=== PATIENT | male | born 1940 | race Caucasian/White ===

== ENCOUNTER 2024-05-17 16:08 | Outpatient (REF) | payer BC, SELFPAY ==
--- OUTSIDE RECORDS SUMMARY | 2024-05-17 16:14 | XMS_ITS | Continuity of Care Document ---
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 It does not include entries that were removed or entered in error. 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 andMay 2021 Entered By: TRENTON PAULINO Comment: Vascular risk factors [facility] Dementia Active Condition [facility] Esophagitis Active Condition [facility] HTN - Hypertension (SCT 50973795) Active Condition [facility] Hyperlipidemia (SCT 38407001) Active Condition [facility] Long-term current use of anticoagulant Active Condition [facility] Major depressive disorder Active Condition [facility] Multiple nodules of lung Active Condition Jun 25, 2021 Entered By: YAZ WALTERS Comment: chest ct 01/03/2021 stable [facility] Pharyngeal dysphagia Active Condition [facility] Pulmonary embolism Active Condition [facility] Sleep Apnea (SCT 65055139) Active Condition [facility] Under care of multiple providers Active Condition Jun 25, 2021 Entered By: YAZ WALTERS Comment: Dr Hadley PCP [facility] Minimal cognitive impairment Inactive Condition 09/18/2021 [facility] Diagnosis: ICD-10-CM Z79.01 custodial (current) use of anticoagulants Active Diagnosis [facility] ([facility]) Diagnosis: ICD-10-CM R63.4 Abnormal weight loss [facility] [place] [facility] Diagnosis: ICD-10-CM I26.93 Sing subsegmental throm pulm emblsm w/o acute cor pulmonale Active Diagnosis [facility] [place] [facility] Diagnosis: ICD-10-CM F03.B18 Unsp dementia, moderate, with other behavioral disturb [facility] [place] [facility] Diagnosis: ICD-10-CM Z71.9 Counseling, unspecified Active Diagnosis [facility] [place] [facility] Diagnosis: ICD-10-CM F32.1 Major depressive disorder, single episode, moderate Active Diagnosis [facility] [place] [facility] Diagnosis: ICD-10-CM F32.9 Major depressive disorder, single episode, unspecified Active [facility] Medications Combined list of outpatient medications from Department of Defense and Veterans Affairs facilities.Medications provided include 1) outpatient medications from the last 15 months, and 2) patient-reported medications. Medication Details Route Status Patient Instructions Prescription Expires Prescription Number Last Dispense Date Ordering Provider Order Date Order Qty Source APIXABAN 5MG TAB TAKE TWO TABLETS BY MOUTH EVERY 12 HOURS FOR 7 DAYS, THEN TAKE ONE TABLET EVERY 12 HOURS FOR 53 DAYS FOR PREVENTI ON OF BLOOD CLOTS ORAL ACTIVE 05/22/2024 [id number] YAZ WALTERS 2023 134 [facility] BENZONATATE 100MG CAP TAKE ONE CAPSULE BY MOUTH THREE TIMES DAILY NEEDED FOR COUGH ORAL 03/15/2024 [id number] 3 YAZ WALTERS 2022 90 [facility] BUPROPION HCL 100MG 12HR TAB,SA TAKE ONE TABLET BY MOUTH EVERY MORNING ORAL DISCONT INUED (EDIT) 05/17/2024 [id number] 3 Fina CRUZ E 2022 90 [facility] BUPROPION HCL 150MG 12HR TAB,SA TAKE ONE TABLET BY MOUTH EVERY MORNING MOOD ORAL ACTIVE 12/30/2024 [id number] 4 Fina CRUZ E 2023 90 [facility] BUPROPION HCL 150MG 12HR TAB,SA TAKE ONE TABLET BY MOUTH EVERY MORNING ORAL DISCONT INUED (EDIT) 07/05/2024 [id number] 4 Fina CRUZ E 2023 90 [facility] ENSURE PLUS LIQUID CHOCOLATE DRINK 1 CAN BY MOUTH ONCE DAILY FOR NUTRITIO NAL SUPPLEME NTATION ORAL ACTIVE 03/25/2025 [id number] 4 YAZ WALTERS 2023 48 [facility] GALANTAMINE HYDROBROMID E 16MG CAP,SA TAKE ONE CAPSULE BY MOUTH EVERY MORNING (TAKE IN THE MORNING, PREFERAB LY WITH FOOD)FOR ALZHEIME R'S DEMENTIA ORAL ACTIVE 12/30/2024 [id number] 4 Fina CRUZ E 2023 90 [facility] GALANTAMINE HYDROBROMID E 8MG CAP,SA TAKE ONE CAPSULE BY MOUTH EVERY MORNING (TAKE IN THE MORNING, PREFERAB LY WITH FOOD)FOR ALZHEIME R'S DEMENTIA ORAL DISCONT INUED (EDIT) 05/17/2024 [id number] 4 Fina CRUZ E 2022 90 [facility] LOSARTAN 50MG TAB TAKE ONE TABLET BY MOUTH ONCE DAILY ORAL ACTIVE YAZ WALTERS 2022 [facility] MIRTAZAPINE 15MG TAB TAKE ONE-HALF TABLET BY MOUTH AT BEDTIME FOR DEPRESSI ON/MOOD ORAL DISCONT INUED BY PROVIDE R 12/30/2024 [id number] 4 Fina CRUZ E 2023 45 [facility] [place] MIRTAZAPINE 15MG TAB TAKE ONE-HALF TABLET BY MOUTH AT BEDTIME FOR DEPRESSI ON/MOOD ORAL DISCONT INUED (EDIT) 07/05/2024 [id number] 4 Fina CRUZ E 2023 45 [facility] MIRTAZAPINE 15MG TAB TAKE ONE-HALF TABLET BY MOUTH AT BEDTIME FOR DEPRESSI ON/MOOD ORAL DISCONT INUED (EDIT) 05/17/2024 [id number] 3 Fina CRUZ E 2022 45 [facility] MIRTAZAPINE 15MG TAB TAKE ONE-HALF TABLET BY MOUTH AT BEDTIME ORAL DISCONT INUED (EDIT) 01/26/2024 [id number] 3 Fina CRUZ E 2022 45 [facility] OMEPRAZOLE 20MG CAP,EC TAKE ONE CAPSULE BY MOUTH EVERY MORNING 30 MINUTES BEFORE BREAKFAS T ORAL ACTIVE 03/23/2025 [id number] 4 YAZ WALTERS 2023 90 [facility] Immunizations Combined list of available immunizations from the Department of Defense and Veterans Affairs facilities. Immunization Series Date Given Administered By Site Reaction Lot Number CVX Code Drug Belt Operator Status Comments Source RSV, BIVALENT, PROTEIN SUBUNIT RSVPREF, DILUENT RECONSTITUTED , 0.5 ML, PF 2023 MARIAM BLAKE LEFT DELTO ID [id number] complet ed [facility] INFLUENZA, UNSPECIFIED FORMULATION 2022 88 complet ed [facility] [place] INFLUENZA VACCINE, QUADRIVALENT, ADJUVANTED 2021 205 complet ed [facility] [place] [facility] PNEUMOCOCCAL CONJUGATE PCV20, POLYSACCHARID E [id number] CONJUGATE, ADJUVANT, PF 2021 216 complet ed [facility] COVID-19 (PFIZER), MRNA, LNP-S, PF, 30 MCG/0.3 ML DOSE 3 2020 208 complet ed [facility] INFLUENZA, UNSPECIFIED FORMULATION 2020 88 complet ed [facility] COVID-19 (PFIZER), MRNA, LNP-S, PF, 30 MCG/0.3 ML DOSE 2 2020 208 complet ed [facility] COVID-19 (PFIZER), MRNA, LNP-S, PF, 30 MCG/0.3 ML DOSE 1 2020 208 complet ed [facility] Results Combined list of recent chemistry, hematology and other laboratory results from Department of Defense and Veterans Affairs, ranging from 15 months to all on record, depending upon the facility. Order Name Results Value Reference Range Date Interpretation Specimen Comments Source CREATININ E (eGFR 2020) CREATININE [MASS/VOLUM E] IN SERUM OR PLASMA 1.49 mg/dL 0.50 - 1.40 03/22 H Specimen Type: SERUM No comment entered. Ordering Provider: MELISSA WALTERS Report Released Date/Time: Mar 22, 2024 04:00 PM Reporting Lab: [facility] [address] [facility] [address] Performing Lab: [facility] [place] [facility] [address] [facility] [address] [facility] CREATININ E (eGFR 2020) GLOMERULAR FILTRATION RATE/1.73 SQ M.PREDICTED [VOLUME RATE/AREA] IN SERUM, PLASMA OR BLOOD BY CREATININE- BASED FORMULA (CKD-EPI 2020) 46 mL/min 60 03/22 L Specimen Type: SERUM No comment entered. Ordering Provider: MELISSA WALTERS Report Released Date/Time: Mar 22, 2024 04:00 PM Reporting Lab: [facility] [place] [facility] [address] [facility] [address] Performing Lab: [facility] [address] [facility] LIVER FUNCTION PROTEIN [MASS/VOLUM E] IN SERUM OR PLASMA 6.9 g/dL 6.0 - 8.3 03/22 Specimen Type: SERUM No comment entered. Ordering Provider: MELISSA WALTERS Report Released Date/Time: Mar 22, 2024 04:00 PM Reporting Lab: [facility] [place] [facility] [address] [facility] [address] Performing Lab: [facility] [place] [facility] [address] [facility] [address] [facility] [place] [facility] LIVER FUNCTION ALBUMIN [MASS/VOLUM E] IN SERUM OR PLASMA 4.0 g/dL 3.5 - 5.0 03/22 Specimen Type: SERUM No comment entered. Ordering Provider: MELISSA WALTERS Report Released Date/Time: Mar 22, 2024 04:00 PM Reporting Lab: [place] [facility] [place] [facility] [address] [facility] [address] Performing Lab: [place] [facility] [place] [facility] [address] [facility] [address] [place] [facility] [place] [facility] LIVER FUNCTION ALKALINE PHOSPHATASE [ENZYMATIC ACTIVITY/VO LUME] IN SERUM OR PLASMA 49 U/L 40 - 150 03/22 Specimen Type: SERUM No comment entered. Ordering Provider: MELISSA WALTERS Report Released Date/Time: Mar 22, 2024 04:00 PM Reporting Lab: [place] [facility] [place] [facility] [address] [facility] [address] Performing Lab: [facility] [place] [facility] [address] [facility] [address] [place] [facility] [place] [facility] LIVER FUNCTION ASPARTATE AMINOTRANSF ERASE [ENZYMATIC ACTIVITY/VO LUME] IN SERUM OR PLASMA 16 U/L 5 - 34 03/22 Specimen Type: SERUM No comment entered. Ordering Provider: MELISSA WALTERS Report Released Date/Time: Mar 22, 2024 04:00 PM Reporting Lab: [facility] [place] [facility] [address] [facility] [address] Performing Lab: [facility] [place] [facility] [address] [facility] [address] [place] [facility] [facility] [facility] LIVER FUNCTION ALANINE AMINOTRANSF ERASE [ENZYMATIC ACTIVITY/VO LUME] IN SERUM OR PLASMA 25 U/L 03/22 Specimen Type: SERUM No comment entered. Ordering Provider: MELISSA WALTERS Report Released Date/Time: Mar 22, 2024 04:00 PM Reporting Lab: [facility] [place] [facility] [address] [facility] [address] Performing Lab: [facility] [place] [facility] [address] [facility] [address] [facility] [place] [facility] LIVER FUNCTION BILIRUBIN.T OTAL [MASS/VOLUM E] IN SERUM OR PLASMA 0.8 mg/dL 0.2 - 1.2 03/22 Specimen Type: SERUM No comment entered. Ordering Provider: MELISSA WALTERS Report Released Date/Time: Mar 22, 2024 04:00 PM Reporting Lab: [facility] [place] [address] [address] Performing Lab: [facility] [place] [address] [address] [facility] [place] [facility] PT & INR (COUMADIN ) INR IN PLATELET POOR PLASMA BY COAGULATION ASSAY 1.2 03/22 Specimen Type: PLASMA No comment entered. Ordering Provider: MELISSA WALTERS Report Released Date/Time: Mar 22, 2024 04:00 PM Reporting Lab: [facility] [place] [address] [address] Performing Lab[facility] [place] [address] [address] [facility] [place] [facility] PT & INR (COUMADIN ) PROTHROMBIN TIME (PT) 13.0 s 10.0 - 13.1 03/22 Specimen Type: PLASMA No comment entered. Ordering Provider: MELISSA WALTERS Report Released Date/Time: Mar 22, 2024 04:00 PM Reporting Lab: [facility] [place] [address] [address] Performing Lab: [facility] [place] [address] [address] [facility] [place] [facility] CBC LEUKOCYTES [#/VOLUME] IN BLOOD BY AUTOMATED COUNT 7.17 10*3/u L 4.50 - 11.00 03/22 Specimen Type: BLOOD No comment entered. Ordering Provider: MELISSA WALTERS Report Released Date/Time: Mar 22, 2024 04:00 PM Reporting Lab: [facility] [place] [facility] [address] [facility] [address] Performing Lab: [facility] [place] [facility] [address] [facility] [address] [place] [facility] [facility] [facility] CBC ERYTHROCYTE S [#/VOLUME] IN BLOOD BY AUTOMATED COUNT 5.39 10*6/u L 4.23 - 5.66 03/22 Specimen Type: BLOOD No comment entered. Ordering Provider: MELISSA WALTERS Report Released Date/Time: Mar 22, 2024 04:00 PM Reporting Lab: [facility] [place] [address] [address] Performing Lab: [facility] [place] [address] [address] [place] [facility] [place] [facility] CBC HEMOGLOBIN [MASS/VOLUM E] IN BLOOD 14.5 g/dL 12.8 - 17 03/22 Specimen Type: BLOOD No comment entered. Ordering Provider: MELISSA WALTERS Report Released Date/Time: Mar 22, 2024 04:00 PM Reporting Lab: [facility] [place] [address] [address] Performing Lab: [facility] [place] [address] [address] [place] [facility] [place] [facility] CBC HEMATOCRIT [VOLUME FRACTION] OF BLOOD BY AUTOMATED COUNT 44.1 39.2 - 50.4 03/22 Specimen Type: BLOOD No comment entered. Ordering Provider: MELISSA WALTERS Report Released Date/Time: Mar 22, 2024 04:00 PM Reporting Lab: [facility] [place] [address] [address] Performing Lab: [place] [facility] [place] [address] [address] [facility] [place] [facility] CBC MCV [ENTITIC VOLUME] BY AUTOMATED COUNT 81.8 fL 82 - 99 03/22 L Specimen Type: BLOOD No comment entered. Ordering Provider: MELISSA WALTERS Report Released Date/Time: Mar 22, 2024 04:00 PM Reporting Lab: [facility] [place] [facility] [address] [facility] [address] Performing Lab: [facility] [place] [facility] [address] [facility] [address] [facility] [place] [facility] CBC MCHC [MASS/VOLUM E] BY AUTOMATED COUNT 32.9 g/dL 30.8 - 35.1 03/22 Specimen Type: BLOOD No comment entered. Ordering Provider: MELISSA WALTERS Report Released Date/Time: Mar 22, 2024 04:00 PM Reporting Lab: [facility] [place] [address] [address] Performing Lab: [facility] [place] [facility] [address] [facility] [address] [place] [facility] [place] [facility] CBC PLATELETS [#/VOLUME] IN BLOOD BY AUTOMATED COUNT 223 10*3/u L 140 - 360 03/22 Specimen Type: BLOOD No comment entered. Ordering Provider: MELISSA WALTERS Report Released Date/Time: Mar 22, 2024 04:00 PM Reporting Lab: [facility] [place] [facility] [address] [facility] [address] Performing Lab: [facility] [place] [facility] [address] [facility] [address] [facility] [place] [facility] CBC ERYTHROCYTE DISTRIBUTIO N WIDTH [RATIO] BY AUTOMATED COUNT 14.4 12.0 - 16.0 03/22 Specimen Type: BLOOD No comment entered. Ordering Provider: MELISSA WALTERS Report Released Date/Time: Mar 22, 2024 04:00 PM Reporting Lab: [facility] [place] [facility] [address] [facility] [address] Performing Lab: [facility] [place] [facility] [address] [facility] [address] [facility] [place] [facility] CBC MCH [ENTITIC MASS] BY AUTOMATED COUNT 26.9 pg 26.2 - 32.6 03/22 Specimen Type: BLOOD No comment entered. Ordering Provider: MELISSA WALTERS Report Released Date/Time: Mar 22, 2024 04:00 PM Reporting Lab: [facility] [place] [facility] [address] [facility] [address] Performing Lab: [facility] [place] [facility] [address] [facility] [address] [facility] [place] [facility] CBC LEUKOCYTES [#/VOLUME] IN BLOOD BY AUTOMATED COUNT 6.55 10*3/u L 4.50 - 11.00 01/05 Specimen Type: BLOOD No comment entered. Ordering Provider: MELISSA WALTERS Report Released Date/Time: Dec 28, 2023 10:07 AM Reporting Lab: [facility] [place] [facility] [address] [facility] [address] Performing Lab: [facility] [place] [facility] [address] [facility] [address] [facility] [place] [facility] CBC ERYTHROCYTE S [#/VOLUME] IN BLOOD BY AUTOMATED COUNT 5.28 10*6/u L 4.23 - 5.66 01/05 Specimen Type: BLOOD No comment entered. Ordering Provider: MELISSA WALTERS Report Released Date/Time: Dec 28, 2023 10:07 AM Reporting Lab: [facility] [place] [facility] [address] [facility] [address] Performing Lab: [facility] [place] [facility] [address] [facility] [address] [facility] [place] [facility] CBC HEMOGLOBIN [MASS/VOLUM E] IN BLOOD 14.2 g/dL 12.8 - 17 01/05 Specimen Type: BLOOD No comment entered. Ordering Provider: MELISSA WALTERS Report Released Date/Time: Dec 28, 2023 10:07 AM Reporting Lab: [facility] [place] [facility] [address] [facility] [address] Performing Lab: [facility] [place] [facility] [address] [facility] [address] [facility] [place] [facility] CBC HEMATOCRIT [VOLUME FRACTION] OF BLOOD BY AUTOMATED COUNT 44.0 39.2 - 50.4 01/05 Specimen Type: BLOOD No comment entered. Ordering Provider: MELISSA WALTERS Report Released Date/Time: Dec 28, 2023 10:07 AM Reporting Lab: [facility] [place] [facility] [address] [facility] [address] Performing Lab: [facility] [place] [facility] [address] [facility] [address] [facility] [place] [facility] CBC MCV [ENTITIC VOLUME] BY AUTOMATED COUNT 83.3 fL 82 - 99 01/05 Specimen Type: BLOOD No comment entered. Ordering Provider: MELISSA WALTERS Report Released Date/Time: Dec 28, 2023 10:07 AM Reporting Lab: [facility] [place] [facility] [address] [facility] [address] Performing Lab: [facility] [place] [facility] [address] [facility] [address] [facility] [place] [facility] CBC MCHC [MASS/VOLUM E] BY AUTOMATED COUNT 32.3 g/dL 30.8 - 35.1 01/05 Specimen Type: BLOOD No comment entered. Ordering Provider: MELISSA WALTERS Report Released Date/Time: Dec 28, 2023 10:07 AM Reporting Lab: [facility] [place] [facility] [address] [facility] [address] Performing Lab: [facility] [place] [facility] [address] [facility] [address] [place] [facility] [place] [facility] CBC PLATELETS [#/VOLUME] IN BLOOD BY AUTOMATED COUNT 217 10*3/u L 140 - 360 01/05 Specimen Type: BLOOD No comment entered. Ordering Provider: MELISSA WALTERS Report Released Date/Time: Dec 28, 2023 10:07 AM Reporting Lab: [place] [facility] [place] [facility] [address] [facility] [address] Performing Lab: [place] [facility] [place] [facility] [address] [facility] [address] [place] [facility] [place] [facility] CBC ERYTHROCYTE DISTRIBUTIO N WIDTH [RATIO] BY AUTOMATED COUNT 15.0 12.0 - 16.0 01/05 Specimen Type: BLOOD No comment entered. Ordering Provider: MELISSA WALTERS Report Released Date/Time: Dec 28, 2023 10:07 AM Reporting Lab: [facility] [place] [facility] [address] [facility] [address] Performing Lab: [place] [facility] [facility] [address] [facility] [address] [facility] [place] [facility] CBC MCH [ENTITIC MASS] BY AUTOMATED COUNT 26.9 pg 26.2 - 32.6 01/05 Specimen Type: BLOOD No comment entered. Ordering Provider: MELISSA WALTERS Report Released Date/Time: Dec 28, 2023 10:07 AM Reporting Lab: [facility] [place] [facility] [address] [facility] [address] Performing Lab: [place] [facility] [facility] [address] [facility] [address] [facility] [place] [facility] BASIC METABOLIC PANEL (non-fast ing) UREA NITROGEN [MASS/VOLUM E] IN SERUM OR PLASMA 16 mg/dL 7 - 25 01/05 Specimen Type: SERUM No comment entered. Ordering Provider: MELISSA WALTERS Report Released Date/Time: Dec 28, 2023 10:07 AM Reporting Lab: [facility] [place] [facility] [address] [facility] [address] Performing Lab: [place] [facility] [place] [facility] [address] [facility] [address] [facility] [place] [facility] BASIC METABOLIC PANEL (non-fast ing) GLUCOSE [MASS/VOLUM E] IN SERUM OR PLASMA 100 mg/dL 65 - 100 01/05 Specimen Type: SERUM No comment entered. Ordering Provider: MELISSA WALTERS Report Released Date/Time: Dec 28, 2023 10:07 AM Reporting Lab: [facility] [place] [facility] [address] [facility] [address] Performing Lab: [facility] [place] [facility] [address] [facility] [address] [facility] [place] [facility] BASIC METABOLIC PANEL (non-fast ing) SODIUM [MOLES/VOLU ME] IN SERUM OR PLASMA 137 mmol/L 135 - 145 01/05 Specimen Type: SERUM No comment entered. Ordering Provider: MELISSA WALTERS Report Released Date/Time: Dec 28, 2023 10:07 AM Reporting Lab: [facility] [place] [facility] [address] [facility] [address] Performing Lab: [facility] [place] [facility] [address] [facility] [address] [facility] [place] [facility] BASIC METABOLIC PANEL (non-fast ing) POTASSIUM [MOLES/VOLU ME] IN SERUM OR PLASMA 4.7 mmol/L 3.5 - 5.0 01/05 Specimen Type: SERUM No comment entered. Ordering Provider: MELISSA WALTERS Report Released Date/Time: Dec 28, 2023 10:07 AM Reporting Lab: [facility] [address] [address] Performing Lab: [facility] [place] [facility] [address] [facility] [address] [facility] [facility] BASIC METABOLIC PANEL (non-fast ing) CHLORIDE [MOLES/VOLU ME] IN SERUM OR PLASMA 109 mmol/L 100 - 110 01/05 Specimen Type: SERUM No comment entered. Ordering Provider: MELISSA WALTERS Report Released Date/Time: Dec 28, 2023 10:07 AM Reporting Lab: [facility] [place] [facility] [address] [facility] [address] Performing Lab: [facility] [place] [facility] [address] [facility] [address] [facility] BASIC METABOLIC PANEL (non-fast ing) CARBON DIOXIDE, TOTAL [MOLES/VOLU ME] IN SERUM OR PLASMA 22 meq/L 20 - 30 01/05 Specimen Type: SERUM No comment entered. Ordering Provider: MELISSA WALTERS Report Released Date/Time: Dec 28, 2023 10:07 AM Reporting Lab: [address] [address] Performing Lab: [facility] [address] [facility] [address] [facility] BASIC METABOLIC PANEL (non-fast ing) CREATININE [MASS/VOLUM E] IN SERUM OR PLASMA 1.41 mg/dL 0.50 - 1.40 01/05 H Specimen Type: SERUM No comment entered. Ordering Provider: MELISSA WALTERS Report Released Date/Time: Dec 28, 2023 10:07 AM Reporting Lab: [address] [address] Performing Lab: [address] [address] [facility] BASIC METABOLIC PANEL (non-fast ing) GLOMERULAR FILTRATION RATE/1.73 SQ M.PREDICTED [VOLUME RATE/AREA] IN SERUM, PLASMA OR BLOOD BY CREATININE- BASED FORMULA (CKD-EPI 2020) 49 mL/min 60 01/05 L Specimen Type: SERUM No comment entered. Ordering Provider: MELISSA WALTERS Report Released Date/Time: Dec 28, 2023 10:07 AM Reporting Lab: [facility] [address] [facility] [address] Performing Lab: [address] [address] [facility] LIPID PANEL, NON FASTING CHOLESTEROL [MASS/VOLUM E] IN SERUM OR PLASMA 206 mg/dL 01/05 H Specimen Type: SERUM No comment entered. Ordering Provider: MELISSA WALTERS Report Released Date/Time: Dec 28, 2023 10:07 AM Reporting Lab: [facility] [place] [facility] [address] [facility] [address] Performing Lab: [place] [facility] [place] [facility] [address] [facility] [address] [place] [facility] [place] [facility] LIPID PANEL, NON FASTING TRIGLYCERID E [MASS/VOLUM E] IN SERUM OR PLASMA 124 mg/dL 0 - 150 01/05 Specimen Type: SERUM No comment entered. Ordering Provider: MELISSA WALTERS Report Released Date/Time: Dec 28, 2023 10:07 AM Reporting Lab: [place] [facility] [place] [facility] [address] [facility] [address] Performing Lab: [place] [facility] [place] [facility] [address] [facility] [address] [facility] [facility] LIPID PANEL, NON FASTING CHOLESTEROL IN LDL [MASS/VOLUM E] IN SERUM OR PLASMA BY CALCULATION 139 mg/dL 0 - 129 01/05 H Specimen Type: SERUM No comment entered. Ordering Provider: MELISSA WALTERS Report Released Date/Time: Dec 28, 2023 10:07 AM Reporting Lab: [facility] [place] [facility] [address] [facility] [address] Performing Lab: [place] [facility] [place] [facility] [address] [facility] [address] [facility] [place] [facility] LIPID PANEL, NON FASTING CHOLESTEROL .TOTAL/CHOL ESTEROL IN HDL [MASS RATIO] IN SERUM OR PLASMA 4.9 01/05 Specimen Type: SERUM No comment entered. Ordering Provider: MELISSA WALTERS Report Released Date/Time: Dec 28, 2023 10:07 AM Reporting Lab: [facility] [place] [facility] [address] [facility] [address] Performing Lab: [facility] [place] [facility] [address] [facility] [address] [facility] [place] [facility] LIPID PANEL, NON FASTING CHOLESTEROL IN HDL [MASS/VOLUM E] IN SERUM OR PLASMA 42 mg/dL 40 - 60 01/05 Specimen Type: SERUM No comment entered. Ordering Provider: MELISSA WALTERS Report Released Date/Time: Dec 28, 2023 10:07 AM Reporting Lab: [facility] [place] [address] [facility] [address] Performing Lab: [facility] [place] [facility] [address] [facility] [address] [facility] [place] [facility] LIVER FUNCTION PROTEIN [MASS/VOLUM E] IN SERUM OR PLASMA 6.5 g/dL 6.0 - 8.3 01/05 Specimen Type: SERUM No comment entered. Ordering Provider: MELISSA WALTERS Report Released Date/Time: Dec 28, 2023 10:07 AM Reporting Lab: [facility] [place] [facility] [address] [facility] [address] Performing Lab: [facility] [place] [facility] [address] [facility] [address] [place] [facility] [place] [facility] LIVER FUNCTION ALBUMIN [MASS/VOLUM E] IN SERUM OR PLASMA 3.5 g/dL 3.5 - 5.0 01/05 Specimen Type: SERUM No comment entered. Ordering Provider: MELISSA WALTERS Report Released Date/Time: Dec 28, 2023 10:07 AM Reporting Lab: [facility] [place] [facility] [address] [facility] [address] Performing Lab: [facility] [place] [facility] [address] [facility] [address] [facility] [place] [facility] LIVER FUNCTION ALKALINE PHOSPHATASE [ENZYMATIC ACTIVITY/VO LUME] IN SERUM OR PLASMA 46 U/L 40 - 150 01/05 Specimen Type: SERUM No comment entered. Ordering Provider: MELISSA WALTERS Report Released Date/Time: Dec 28, 2023 10:07 AM Reporting Lab: [facility] [place] [facility] [address] [facility] [address] Performing Lab: [facility] [place] [facility] [address] [facility] [address] [facility] [place] [facility] LIVER FUNCTION ASPARTATE AMINOTRANSF ERASE [ENZYMATIC ACTIVITY/VO LUME] IN SERUM OR PLASMA 14 U/L 5 - 34 01/05 Specimen Type: SERUM No comment entered. Ordering Provider: MELISSA WALTERS Report Released Date/Time: Dec 28, 2023 10:07 AM Reporting Lab: [facility] [address] [facility] [address] Performing Lab: [facility] [address] [place] [address] [place], [place] [address]RL TRN [facility] LIVER FUNCTION ALANINE AMINOTRANSF ERASE [ENZYMATIC ACTIVITY/VO LUME] IN SERUM OR PLASMA 21 U/L 01/05 Specimen Type: SERUM No comment entered. Ordering Provider: MELISSA WALTERS Report Released Date/Time: Dec 28, 2023 10:07 AM Reporting Lab: [facility] [address] Performing Lab: [facility] [address] [facility] LIVER FUNCTION BILIRUBIN.T OTAL [MASS/VOLUM E] IN SERUM OR PLASMA 0.6 mg/dL 0.2 - 1.2 01/05 Specimen Type: SERUM No comment entered. Ordering Provider: MELISSA WALTERS Report Released Date/Time: Dec 28, 2023 10:07 AM Reporting Lab: [facility] [address] Performing Lab: [facility] [address] [facility] VITAMIN B-1 (THIAMINE )-(QU) THIAMINE [MOLES/VOLU ME] IN SERUM OR PLASMA 17 nmol/L 8 - 30 06/28 Specimen Type: PLASMA Comment: Vitamin supplementa tion within 24 hours prior to blood draw may affect the accuracy of the results. This test was developed and its analytical performance characteris tics have been determined by [facility] [place], [place]. It has not been cleared or approved by the U.S. Food and Drug Administrat ion. This assay has been validated pursuant to the CLIA regulations and is used for clinical purposes. Test Performed by [facility], [facility], [address] [place] [address] Zach Tyler M.D., Ph.D., Director of Laboratorie s , CLIA [id number] TEST PERFORMED AT: , Ordering Provider: BEBETO FELIX Report Released Date/Time: Jun 28, 2023 03:10 PM Reporting Lab: [place] [facility] [place] [facility] [address] [facility] [address] Performing Lab: [place] [facility] [facility] [place] [facility] [facility] [place] [facility] VITAMIN B12 COBALAMIN (VITAMIN B12) [MASS/VOLUM E] IN SERUM OR PLASMA 854 pg/mL 200 - 900 06/28 Specimen Type: SERUM No comment entered. Ordering Provider: BEBETO FELIX Report Released Date/Time: Jun 28, 2023 03:10 PM Reporting Lab: [place] [facility] [place] [facility] [address] [facility] [address] Performing Lab: [place] [facility] [place] [facility] [address] [facility] [address] [facility] [facility] Vital Signs Combined list of inpatient and outpatient Vital Signs from Department of Defense and Veterans Affairs, ranging from 12 months to all on record, depending upon the facility. Vital Sign Value Date Comments Source WEIGHT 177 04/19/2024 14:45:53 [place] [facility] [place] [facility] BMI 25kg/m2 04/19/2024 14:45:53 [place] [facility] [place] [facility] SYSTOLIC BLOOD PRESSURE 138 03/22/20 24 15:39:08 [place] [facility] [place] [facility] DIASTOLIC BLOOD PRESSURE 78 024 15:39:08 [facility] [place] [facility] PULSE OXIMETRY 95 03/22/2024 15:39:08 [facility] [place] [facility] WEIGHT 180 03/22/2024 15:39:08 [facility] BMI 25kg/m2 03/22/2024 15:39:08 [facility] PAIN 0 03/22/2024 15:39:08 [facility] HEIGHT 71 03/22/2024 15:39:08 [facility] TEMPERATURE 97.1 03/22/2024 15:39:08 [facility] PULSE 77 03/22/2024 15:39:08 [facility] RESPIRATION 20 03/22/2024 15:39:08 [facility] SYSTOLIC BLOOD PRESSURE 120 01/06/20 24 14:10:32 [facility] DIASTOLIC BLOOD PRESSURE 67 024 14:10:32 [facility] PULSE OXIMETRY 96 01/06/2024 14:10:32 [facility] PAIN 0 01/06/2024 14:10:32 [facility] HEIGHT 71 01/06/2024 14:10:32 [facility] TEMPERATURE 97.3 01/06/2024 14:10:32 [facility] PULSE 90 01/06/2024 14:10:32 [facility] RESPIRATION 20 01/06/2024 14:10:32 [facility] SYSTOLIC BLOOD PRESSURE 113 06/28/19 24 15:02:15 [facility] DIASTOLIC BLOOD PRESSURE 61 024 15:02:15 [facility] PULSE OXIMETRY 97 06/28/2023 15:02:15 [facility] WEIGHT 184.6 06/28/2023 15:02:15 [facility] BMI 26kg/m2 06/28/2023 15:02:15 [facility] PAIN 0 06/28/2023 15:02:15 [facility] TEMPERATURE 97.5 06/28/2023 15:02:15 [facility] PULSE 87 06/28/2023 15:02:15 [facility] RESPIRATION 18 06/28/2023 15:02:15 [facility] Encounters Combined list of: 1) Encounters from Department of Veterans Affairs facilities going back up to thelast 18 months. 2) Encounters from the Department of Defense facilities going back up to 280 months. Location Location Details Encounter Type Encounter Number Reason For Visit Attending Provider ADM Date DC Date Status Disposition Source [facility] Encounter [id number] 11/19 [facility] PRO PHONE CALL 21-30 MIN [id number] Diagnos is: ICD-10- CM F03.B18 Unsp dementi a, moderat e, with other behavio ral disturb
Geovanni WALTERS ATRICIA A 12/15 [facility] En[facility] [id number] 12/23 [facility] [id number] 01/14 [facility] En[facility] [id number] 01/15 [facility] OFFICE O/P EST MOD 30-39 MIN [id number] Diagnos is: ICD-10- CM F32.9 Major depress johny disorde r, single episode , unspeci fied
ELIANE CRUZ SSICA E 01/25 [facility] En[facility] [id number] 01/28 [facility] En[facility] [id number] 01/28 [facility] En[facility] [id number] 02/12 [facility] En[facility] [id number] 03/12 [facility] En[facility] [id number] 03/17 [facility] En[facility] [id number] 03/24 [facility] Encounter [id number] 04/06 [facility] OFFICE O/P EST HI 40-54 MIN [id number] Diagnos is: ICD-10- CM F32.1 Major depress johny disorde r, single episode , moderat e
ELIANE CRUZ SSICA E 05/17 [facility] En[facility] [id number] 05/20 [facility] Outpatient Encounter [id number] BIPIN ORTA 06/17 [facility] Outpatient Encounter [id number] 06/22 [facility] OFFICE O/P EST MOD 30 MIN [id number] Diagnos is: ICD-10- CM F03.B18 Unsp dementi a, moderat e, with other behavio ral disturb
TARA FELIX Y 06/28 [facility] OFFICE O/P EST MOD 30 MIN [id number] Diagnos is: ICD-10- CM F03.B18 Unsp dementi a, moderat e, with other behavio ral disturb
Earnestine WALTERS 06/28 [facility] OFFICE O/P EST MOD 30 MIN [id number] Diagnos is: ICD-10- CM F03.B18 Unsp dementi a, moderat e, with other behavio ral disturb
ELIANE CRUZ SSICA E 07/05 [facility] [place] Outpatient Encounter [id number] RASHAUN LI ISTOPHER E 08/18 [facility] PRO PHONE CALL 11-20 MIN [id number] Diagnos is: ICD-10- CM Z71.9 Shake Packer ing, unspeci fied
MONIKA BAH 09/06 [facility] Outpatient Encounter [id number] 10/31 [facility] OFFICE O/P EST MOD 30 MIN [id number] Diagnos is: ICD-10- CM F03.B18 Unsp dementi a, moderat e, with other behavio ral disturb
ELIANE CRUZ SSICA E 12/29 [facility] [place] Outpatient Encounter [id number] 12/29 [facility] Outpatient Encounter [id number] BIPIN ORTA 01/03 [facility] OFFICE O/P EST MOD 30 MIN [id number] Diagnos is: ICD-10- CM F03.B18 Unsp dementi a, moderat e, with other behavio ral disturb
Earnestine WALTERS 01/05 [facility] Outpatient [facility]counter [id number] 01/09 [facility] [place] OFFICE O/P EST MOD 30 MIN [id number] Diagnos is: ICD-10- CM F03.B18 Unsp dementi a, moderat e, with other behavio ral disturb
ELIANE CRUZ SSICA E 02/13 [facility] [place] Outpatient Encounter [id number] 03/20 [facility] [place] [facility] Outpatient [facility]counter [id number] 03/20 [facility] [place] OFFICE O/P EST MOD 30 MIN [id number] Diagnos is: ICD-10- CM 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
Earnestine WALTERS 03/22 [facility] MTMS BY PHARM EST 15 MIN [id number] 1. Diagnos is: ICD-10- CM Z79.01 custodial (curren t) use of anticoa gulants
MARISA WEAVER 03/23 [facility] (6[facility]) QNHP OL DIG ASSMT&MGMT 5-10 [id number] Diagnos is: ICD-10- CM Z79.01 custodial (curren t) use of anticoa gulants
MELE MANN 03/24 [facility] Outpatient Encounter [id number] 04/07 [facility] [place] Outpatient [facility]counter [id number] 04/17 [facility] [place] [place] [id number] 1. Diagnos is: ICD-10- CM R63.4 Abnorma l weight loss
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
MELE MANN 04/21 [facility] [place] [facility] [place] [facility] Outpatient Encounter [id number] 1. ISABELLE BLAKE 04/24 [place] [facility] [place] [place] [facility] Outpatient Encounter [id number] 1. ISABELLE BLAKE 05/17 [facility] [place] [facility] Social History Combined list of available smoking, tobacco, and other social history from Department of Defense and Veterans Affairs facilities. Social History Type Response Date Comment Sourc e Tobacco smoking status NHIS VA-TOBACCO QUIT 15 YRS OR MORE 01/06/2024 [facility] [place] [facility] History of tobacco use VA-TOBACCO FORMER USER 01/06/2024 [facility] [place] [facility] History of tobacco use VA-TOBACCO FORMER USER 10/29/2022 [facility] [place] [facility] History of tobacco use VA-TOBACCO FORMER USER 05/21/2021 [facility] [place] [facility] Plan of Care List of future care activities from Department of Veterans Affairs facilities. Additional future care activities may be listed in the Assessment and Plan section. Date/Time Care Activity Care Activity Detail Facili ty 06/12/2024 AMBULATORY - PSYCHIATRY AMBULATORY - PSYC HIATRY [facility] [place] [facility] 06/22/2024 AMBULATORY - MEDICINE AMBULATORY - MEDICI NE [facility] [place] [facility] 06[facility]28/2024 AMBULATORY - NONE AMBULATORY - NONE [place] [facility] [place] [facility] 07[facility]03/2024 AMBULATORY - MEDICINE AMBULATORY - MEDICI NE [place] [facility] [place] [facility]
--- OUTSIDE RECORDS SUMMARY | 2024-05-17 16:15 | XMS_ITS ---
Author Name [facility] [place] [facility] [place] Address [address] [place] [address] Care Team Providers Care Lab Rep Name Role Phone ABDULLAHI LEIGH [facility] Insurance Providers: All historical and current Section Date Range: From patient's date of to the date document was created. This section includes the names of all active insurance providers for the patient. Insurance Provider Type of Coverage Plan Name Start of Policy Coverage End of Policy Coverage Group Number Member ID Insurance Provider's Telephone Number Policy Stone's Name Patient's Relationship to Policy Stone BCBS MA FEP PREFERRED PROVIDER ORGANIZAT ION (PPO) BASIC INDIV IDUAL May 31, 2008 [id number] LIAN,THE [place] PATIENT CAREMARK-F EP BCBS PRESCRIPT ION FEP CAREM ARK May 31, 2010 [id number] LIAN,THE [place] PATIENT MEDICARE (WNR) MEDICARE (M) PART A Jan 29, 2005 PART A [id number] [phone] LIAN,[place] PATIENT MEDICARE (WNR) MEDICARE (M) PART A Jan 29, 2005 PART A [id number] [phone] LIAN,THE [place] PATIENT Selected Encounter This section includes the information on record at [place] for the Encounter. Date/Time Encounter Type Encounter Description Reason Provider Source Jun 28, 2023 03:30 PM OFFICE O/P EST MOD 30 MIN PRIMARY CARE/MEDICINE ICD-10-CM F03.B18 Unsp dementia, moderate, with other behavioral disturb TAMY LEIGH AM Adán Encounter Template Text not used by [place] Assessments - Encounter Diagnoses This section includes the primary and secondary diagnoses documented for the Encounter. Date/Time Primary/Secondary Diagnosis Diagnosis Name Provider Source Jul 07, 2023 12:58 PM PRIMARY Unsp dementia, moderate, with other behavioral disturb LEIGH,WILL [facility] [place] [facility] Jul 07, 2023 12:58 PM SECONDARY Encounter for immunization MARIAM BLAKE [place] [facility] [place] [facility] Jul 07, 2023 12:58 PM SECONDARY Essential (primary) hypertension LEIGH,[facility] [place] [facility] Jul 07, 2023 12:58 PM SECONDARY Hyperlipidemia, unspecified LEIGH,[facility] [place] [facility] Plan of Treatment: Future Appointments (+ 6 months) and Future Tests (+/- 45 days) The Plan of Treatment section includes future care activities for the patient from [facility] This section includes future appointments and future orders which are active, pending or scheduled. Future Appointments This section includes appointments that were scheduled to occur 6 months from the date of the Encounter, up to a maximum of 20 appointments. The data comes from all [place] treatment facilities. Appointment Date/Time Appointment Type Appointme nt Facility Name Jul 05, 2023 03:00 PM AMBULATORY - PSYCHIATRY [facility] [place] [facility] Jul 24, 2023 08:00 AM AMBULATORY - MEDICINE [facility] Lab Results: +/- 30 days of the encounter This section includes the Chemistry and Hematology Lab Results on record with [place] for the patient. Radiology Reports and Pathology Reports are provided separately, in subsequent sections. Lab Results This section contains the Chemistry/Hematology Results that were resulted 30 days before or 30 daysafter the date of the Encounter. Date/Time Source Result Type Result - Unit Interpretation Reference Range Comment Jun 28, 2023 03:11 PM [facility] (THIAMINE)-(QU) Specimen Type: PLASMA Comment: Vitamin supplementation within 24 hours prior to blood draw may affect the accuracy of the results. This test was developed and its analytical performance characteristics have been determined by [employer] [place], [place]. It has not been cleared or approved by the U.S. Food and Drug Administration. This assay has been validated pursuant to the CLIA regulations and is used for clinical purposes. Test Performed by [facility] [employer] [facility], [address] [place] [address] Zach Tyler M.D., Ph.D., Director of Laboratories , CLIA [id number] TEST PERFORMED AT: , Ordering Provider: SREE FELIX Report Released Date/Time: Jun 28, 2023 03:10 PM Reporting Lab: [address] [address] Performing Lab: [facility] [address] [address] VITAMIN B-1 (THIAMINE)-(Q U) 17 nmol/L 8-30 Jun 28, 2023 03:11 PM [facility] VITAMIN B12 Specimen Type: SERUM No comment entered. Ordering Provider: SREE FELIX Report Released Date/Time: Jun 28, 2023 03:10 PM Reporting Lab: [address] [address] Performing Lab: [address] [address] VITAMIN B12 854 pg/mL 200-900 Jun 28, 2023 03:11 PM [facility] IRON & TIBC PANEL Specimen Type: SERUM No comment entered. Ordering Provider: SREE FELIX Report Released Date/Time: Jun 28, 2023 03:10 PM Reporting Lab: [address] [address] Performing Lab: [address] [address] TIBC 310 ug/dL 204-475 IRON 120 ug/dL 40-160 Transferrin Saturation 38.7 20.0-50.0 Jun 28, 2023 02:21 PM [facility] [place] [facility] THYROID T4 FREE(FT4) Specimen Type: SERUM No comment entered. Ordering Provider: ABDULLAHI LEIGH Report Released Date/Time: Jun 17, 2023 10:24 AM Reporting Lab: [facility] [place] [facility] [address] [facility] [address] Performing Lab: [place] [facility] [place] [facility] [address] [facility] [address] THYROID T4 FREE(FT4) 0.71 ng/dL 0.6-1.6 Jun 28, 2023 02:21 PM [facility] [place] [facility] TSH Specimen Type: SERUM No comment entered. Ordering Provider: ABDULLAHI LEIGH Report Released Date/Time: Jun 17, 2023 10:24 AM Reporting Lab: [facility] [place] [facility] [address] [facility] [address] Performing Lab: [facility] [place] [facility] [address] [facility] [address] TSH 4.20 u[IU]/mL 0.35-5.00 Jun 28, 2023 02:21 PM [facility] CBC Specimen Type: BLOOD No comment entered. Ordering Provider: ABDULLAHI LEIGH Report Released Date/Time: Jun 17, 2023 10:24 AM Reporting Lab: [facility] [place] [facility] [address] [facility] [address] Performing Lab: [place] [facility] [place] [facility] [address] [facility] [address] WBC 6.39 10*3/uL 4.50-11.00 RBC 5.16 10*6/uL 4.23-5.66 HGB 13.8 g/dL 12.8-17 HCT 43.5 39.2-50.4 MCV 84.3 fL 82-99 MCHC 31.7 g/dL 30.8-35.1 PLT 216 10*3/uL 140-360 RDW-CV 14.7 12.0-16.0 MCH 26.7 pg 26.2-32.6 Jun 28, 2023 02:21 PM [facility] BASIC METABOLIC PANEL (fasting) Specimen Type: SERUM No comment entered. Ordering Provider: ABDULLAHI LEIGH Report Released Date/Time: Jun 17, 2023 10:24 AM Reporting Lab: [address] [address] Performing Lab: [address] [address] UREA NITROGEN 14 mg/dL 7-25 GLUCOSE 110 mg/dL H 65-100 SODIUM 139 mmol/L 135-145 POTASSIUM 4.5 mmol/L 3.5-5.0 CHLORIDE 105 mmol/L 100-110 CO2 26 meq/L 20-30 CREATININE, Serum 1.45 mg/dL H 0.50-1.40 eGFR(CKD-EPI 2020) 48 mL/min L >60 Jun 28, 2023 02:21 PM [facility] LIPID PANEL FASTING Specimen Type: SERUM No comment entered. Ordering Provider: ABDULLAHI LEIGH Report Released Date/Time: Jun 17, 2023 10:24 AM Reporting Lab: [address] [address] Performing Lab: [address] [address] CHOLESTEROL 209 mg/dL H TRIGLYCERIDE 113 mg/dL 0-150 LDL calculated 139 mg/dL H 0-129 CHOL/HDL 4.4 HDL CHOLESTEROL 47 mg/dL 40-60 Jun 28, 2023 02:21 PM [facility] HEMOGLOBIN A1C PANEL Specimen Type: BLOOD Comment: Values obtained from A1C measurements can vary. For atypical A1C assays, a reported value of 7.0 could actually be between 6.72 and 7.28 if measured by a reference method. A reported value of 9.0 could actually be between 8.73 and 9.27. Ref: http://www.ngsp. org/CAPdata.asp Ordering Provider: ABDULLAHI LEIGH Report Released Date/Time: Jun 17, 2023 10:24 AM Reporting Lab: [facility] [address] [facility] [address] Performing Lab: [facility] [address] [facility] [address] HEMOGLOBIN A1C 5.9 H 4.0-5.6 Jun 28, 2023 02:21 PM [facility] LIVER FUNCTION Specimen Type: SERUM No comment entered. Ordering Provider: ABDULLAHI LEIGH Report Released Date/Time: Jun 17, 2023 10:24 AM Reporting Lab: [facility] [address] [facility] [address] Performing Lab: [address] [address] PROTEIN,TOTAL 6.9 g/dL 6.0-8.3 ALBUMIN 3.8 g/dL 3.5-5.0 ALKALINE PHOSPHATASE 46 U/L 40-150 AST 20 U/L 5-34 ALT 30 U/L BILIRUBIN, TOTAL 0.7 mg/dL 0.2-1.2 Vital Signs: All taken on the encounter date This section contains inpatient and outpatient Vital Signs collected on the date of the Encounter. Date/Time Temperature Pulse Blood Pressure Respiratory Rate SP02 Pain Height Weight Body Mass Index Source Jun 28, 2023 03:02 PM 97.5 87 113/61 18 97 0 184.6 26 [facility] Immunizations: All administered on the encounter date This section contains immunizations associated to the Encounter. Immunization Series Date Issued Reaction Comments RSV, BIVALENT, PROTEIN SUBUN IT RSVPREF, DILUENT RECONSTITUTED, 0.5 ML, PF Jun 28, 2023 Social History: Smoking Status (Most current) and Tobacco Use (All prior to encounter date) This section includes the most current, and the historical, smoking and tobacco- related health factors from the [place] facility where the Encounter took place. Current Smoking Status This section includes the most current smoking, or tobacco-related health factor, from the [place] facility where the Encounter took place. Date/Time Current Smoking Status Comment Jenna denny Oct 29, 2022 03:30 PM VA-TOBACCO QUIT 15 YRS OR MORE [facility] Tobacco Use History This section includes a history of the smoking, or tobacco-related health factors, that were collected on or before the date of the Encounter. The data comes from the [place] facility where the Encounter took place. Date/Time Smoking Status/Tobacco Use Comment F acility Oct 29, 2022 03:30 PM VA-TOBACCO QUIT 15 YRS OR MORE [facility] May 21, 2021 07:21 PM VA-TOBACCO FORMER USER [facility] May 21, 2021 07:21 PM VA-TOBACCO QUIT [facility] YRS OR MORE [facility] Encounter Notes: All associated encounter notes This section contains the clinical notes associated to the Encounter. Date/Time Encounter Note(s) Provider Source Jun 28, 2023 03:40 PM PREVENTIVE MEDICINE NURSING NOTE: LOCAL TITLE: CLINICAL REMINDERS/NURSING STANDARD TITLE: PREVENTIVE MEDICINE NURSING NOTE DATE OF NOTE: JUN 28, 2023@15:40 ENTRY DATE: JUN 28, 2023@15:40:26 AUTHOR: ANJELICA BLAKE EXP COSIGNER: URGENCY: STATUS: COMPLETED Respiratory Syncytial Virus (RSV) Vaccine: RSV vaccine administered today. Administered: RSV, BIVALENT, PROTEIN SUBUNIT RSVPREF, DILUENT RECONSTITUTED, 0.5 ML, PF Date Administered: Jun 28, 2023 15:30 Express Manager: [employer] Lot: [id number] Exp Date: Aug 28, 2024 ND: [id number] Admin Route/Site: INTRAMUSCULAR/LEFT DELTOID Dosage: 0.5mL Vaccine Information Statement(s): RSV (RESPIRATORY SYNCYTIAL VIRUS) VACCINE VIS Mar 18, 2023 ([place]) Order By: Abdullahi Leigh Administered By: Anjelica Blake Vaccine Information Sheet (VIS) was given to the patient/caregiver, education regarding adverse reactions was discussed, as well as barriers to learning, if any, were acknowledged. /nick/ Anjelica Blake MSN RN CNL Primary Care RN Signed: 06/28/2023 15:41 AN[facility]ELICA B[facility]KE [facility] Jun 28, 2023 03:39 PM PRIMARY CARE NURSE PRACTITIONER OUTPATIENT NOTE: LOCAL TITLE: NURSE PRACTITIONER OUTPATIENT NOTE STANDARD TITLE: PRIMARY CARE NURSE PRACTITIONER OUTPATIENT NOTE DATE OF NOTE: JUN 28, 2023@15:39 ENTRY DATE: JUN 28, 2023@15:39:47 AUTHOR: ABDULLAHI LEIGH COSIGNER: URGENCY: STATUS: COMPLETED Chief complaint: Patient is a 83 year old . HPI: Pleasant male [place] here with his . She is his caregiver, he has dementia. He reports feeling well, tells me things are ok though he continues to lack motivation. She tells me they will be moving into a new home with a lot less upkeep. Allergies: Patient has answered NKA The following VA and Non-VA meds were reconciled with patient. The patient was educated on the use of the medications including indication and side effects. Active and Recently Outpatient Medications (excluding Supplies): Active Outpatient Medications Status 1) BENZONATATE 100MG CAP TAKE ONE CAPSULE BY MOUTH THREE ACTIVE TIMES DAILY NEEDED FOR COUGH 2) BUPROPION HCL 100MG 12HR SA TAB TAKE ONE TABLET BY ACTIVE MOUTH EVERY MORNING 3) GALANTAMINE HYDROBROMIDE 8MG SA CAP TAKE ONE CAPSULE ACTIVE BY MOUTH EVERY MORNING (TAKE IN THE MORNING, PREFERABLY WITH FOOD)FOR ALZHEIMER'S DEMENTIA 4) MIRTAZAPINE 15MG TAB TAKE ONE-HALF TABLET BY MOUTH AT ACTIVE BEDTIME FOR DEPRESSION/MOOD Active Non-VA Medications Status 1) Non-VA LOSARTAN 50MG TAB 50MG BY MOUTH ONCE DAILY ACTIVE 5 Total Medications Review of Systems: Constitutional: (-)for Fevers, chills, weakness, nights sweats On examination: 97.5 F [36.4 C] (06/28/2023 15:02)113/61 (06/28/2023 15:02)87 (06/28/2023 15:02) 18 (06/28/2023 15:02)0 (06/28/2023 15:02)BMI: 25.8184.6 lb [83.73 kg] (06/28/2023 15:02) is alert and oriented X2 Neck: supple without masses, trachea midline, ln not palpable, no thyromegaly Cardiovasc: 2plus carotids without bruits, no JVD Heart Reguler rate and rhythm NL S1S2 no S3 or murmur Respiration: Normal respiratory effort, lungs clear ABD: Benign normal active bowel sounds no HSM no rebound or referred pain EXT: no clubbing, edema, or cyanosis Assessment/plan: Active problems - Computerized Problem List is the source for the followin. Dementia - follows in neurology 2. HTN - Hypertension ([facility] [id number]) - well controlled 3. Hyperlipidemia ([facility] [id number]) - labs pending 4. Multiple nodules of lung - consider imaging next visit Review of medial record = 5mins Time spent with Patient including shared decision making = 20 mins Post visit documentation = 5mins Total time = 30 mins Follow up visit in 6 mos. Alert to PACT RN - Labs as necessary to address clinical status. 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 The /caregiver was informed that we will continue to ask this screening question every 5 years. They can contact their provider/healthcare team if they have concerns about exposures and would like to be screened sooner. Printed information was offered and provided if desired. Medication Reconciliation: Outpatient: Has the patient been taking medications as documented in the EMLR? YES: The patient has been taking medications as documented in the EMLR. Essential Medication List for Review used to complete this medication reconciliation. INCLUDED IN THIS LIST: Alphabetical list of active outpatient prescriptions dispensed from this VA (local) and dispensed from another VA or DoD facility (remote) as well as inpatient orders (local, pending and active), local clinic medications, locally documented non-VA medications, and local prescriptions that have or been discontinued in the past 90 days. - All changes in medications, including all non-VA/Herbal/OTC medications were entered into CPRS. - If there were any medications the patient should no longer take, they were discontinued. - The patient/caregiver was instructed to update this list, discard old lists, and take this list to the next appointment, whether with a VA or non-VA provider. /nick/ Abdullahi Leigh DNP, REMEDIAL TEACHER-BC, CNL Primary Care Nurse Practitioner Signed: 07/01/2023 10:39 ABDULLAHI LEIGH [facility]
--- OUTSIDE RECORDS SUMMARY | 2024-05-17 16:15 | XMS_ITS ---
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 Role Phone YAZ WALTERS Primary [facility] Insurance Providers: All historical and current Section [...] BASIC INDIV IDUAL May 31, 2008 [id number] LIAN,THE [place] PATIENT CAREMARK-F EP BCBS PRESCRIPT ION FEP CAREM ARK May 31, 2010 [id number] LIAN,THE [place] PATIENT MEDICARE (WNR) MEDICARE (M) PART A Jan 29, 2005 PART A [id number] [phone] LIAN,THE [place] PATIENT MEDICARE (WNR) MEDICARE (M) PART A Jan 29, 2005 PART A [id number] LIAN,THE [place] PATIENT Selected Encounter This section includes the information on record at [place] for the Encounter. Date/Time Encounter Type Encounter Description Reason Provider Source Jun 28, 2023 02:30 PM OFFICE O/P EST MOD 30 MIN NEUROLOGY ICD-10-CM F03.B18 Unsp dementia, moderate, with other behavioral disturb ELLIOTT FELIX [facility] Encounter Template Text not used by [place] Assessments - Encounter Diagnoses This section includes the primary and secondary diagnoses documented for the Encounter. Date/Time Primary/Secondary Diagnosis Diagnosis Name Provider Source Jul 24, 2023 01:22 PM PRIMARY Unsp dementia, moderate, with other behavioral disturb [facility]ELIX [facility] Jul 24, 2023 01:22 PM SECONDARY Major depressive disorder, single episode, moderate ELLIOTT FELIX [facility] Plan of Treatment: Future Appointments (+ 6 months) and Future Tests (+/- 45 days) The Plan of Treatment section includes future care activities for the patient from all [place] treatmentfacilities. This section includes future appointments and future orders which are active, pending or scheduled. Future Appointments This section includes appointments that were scheduled to occur 6 months from the date of the Encounter, up to a maximum of 20 appointments. The data comes from all [facility] treatment facilities. Appointment Date/Time Appointment Type Appointme nt Facility Name Jul 05, 2023 03:00 PM AMBULATORY - PSYCHIATRY [facility] Jul 24, 2023 08:00 AM AMBULATORY - MEDICINE [facility] Lab Results: +/- 30 days of the encounter This section includes the Chemistry and Hematology Lab Results on record with [place] for the patient. Radiology Reports and Pathology Reports are provided separately, in subsequent sections. Lab Results This section contains the Chemistry/Hematology Results that were resulted 30 days before or 30 daysafter the date of the Encounter. Date/Time Source Result Type Result - Unit Interpretation Reference Range Comment Jun 28, 2023 03:[address] [facility] VITAMIN B-1 (THIAMINE)-(QU) Specimen Type: PLASMA Comment: Vitamin supplementation within 24 hours prior to blood draw may affect the accuracy of the results. This test was developed and its analytical performance characteristics have been determined by [facility] [place], [place]. It has not been cleared or approved by the U.S. Food and Drug Administration. This assay has been validated pursuant to the CLIA regulations and is used for clinical purposes. Test Performed by [facility], [facility], [address] [place] [address] Zach Tyler M.D., Ph.D., Director of Laboratories , CLIA [id number] TEST PERFORMED AT: , Ordering Provider: ELLIOTT FELIX Report Released Date/Time: Jun 28, 2023 03:10 PM Reporting Lab: [facility] [address] [address] Performing Lab: [place] [id number] [address] VITAMIN B-1 (THIAMINE)-(Q U) 17 nmol/L 8-Jun 28, 2023 03:[address] [facility] IRON & TIBC PANEL Specimen Type: SERUM No comment entered. Ordering Provider: ELLIOTT FELIX Report Released Date/Time: Jun 28, 2023 03:10 PM Reporting Lab: [facility] [address] [address] Performing Lab: [address] [address] TIBC 310 ug/dL 204-475 IRON 120 ug/dL 40-160 Transferrin Saturation 38.7 20.0-50.0 Jun 28, 2023 03:[address] [facility] VITAMIN B12 Specimen Type: SERUM No comment entered. Ordering Provider: ELLIOTT FELIX Report Released Date/Time: Jun 28, 2023 03:10 PM Reporting Lab: [facility] [address] Performing Lab: [address] [address] VITAMIN B12 854 pg/mL 200-900 Jun 28, 2023 02:[address] [facility] THYROID T4 FREE(FT4) Specimen Type: SERUM No comment entered. Ordering Provider: YAZ WALTERS Report Released Date/Time: Jun 17, 2023 10:24 AM Reporting Lab: [facility] [address] [address] Performing Lab: [facility] [address] [facility] [address] THYROID T4 FREE(FT4) 0.71 ng/dL 0.6-1.6 Jun 28, 2023 02:[address] [facility] TSH Specimen Type: SERUM No comment entered. Ordering Provider: YAZ WALTERS Report Released Date/Time: Jun 17, 2023 10:24 AM Reporting Lab: [facility] [address] [address] Performing Lab: [facility] [address] [address] TSH 4.20 u[IU]/mL 0.35-5.00 Jun 28, 2023 02:[address] [facility] CBC Specimen Type: BLOOD No comment entered. Ordering Provider: YAZ WALTERS Report Released Date/Time: Jun 17, 2023 10:24 AM Reporting Lab: [facility] [address] [address] Performing Lab: [facility] [address] [address] WBC 6.39 10*3/uL 4.50-11.00 RBC 5.16 10*6/uL 4.23-5.66 HGB 13.8 g/dL 12.8-17 HCT 43.5 39.2-50.4 MCV 84.3 fL 82-99 MCHC 31.7 g/dL 30.8-35.1 PLT 216 10*3/uL 140-360 RDW-CV 14.7 12.0-16.0 MCH 26.7 pg 26.2-32.6 Jun 28, 2023 02:21 PM [facility] BASIC METABOLIC PANEL (fasting) Specimen Type: SERUM No comment entered. Ordering Provider: YAZ WALTERS Report Released Date/Time: Jun 17, 2023 10:24 AM Reporting Lab: [facility] [address] [address] Performing Lab: [facility] [address] [address] UREA NITROGEN 14 mg/dL 7-25 GLUCOSE 110 mg/dL H 65-100 SODIUM 139 mmol/L 135-145 POTASSIUM 4.5 mmol/L 3.5-5.0 CHLORIDE 105 mmol/L 100-110 CO2 26 meq/L 20-30 CREATININE, Serum 1.45 mg/dL H 0.50-1.40 eGFR(CKD-EPI 2020) 48 mL/min L >60 Jun 28, 2023 02:[address] [facility] LIPID PANEL FASTING Specimen Type: SERUM No comment entered. Ordering Provider: YAZ WALTERS Report Released Date/Time: Jun 17, 2023 10:24 AM Reporting Lab: [facility] [address] [address] Performing Lab: [facility] [address] [address] CHOLESTEROL 209 mg/dL H TRIGLYCERIDE 113 mg/dL 0-150 LDL calculated 139 mg/dL H 0-129 CHOL/HDL 4.4 HDL CHOLESTEROL 47 mg/dL 40-60 Jun 28, 2023 02:[address] [facility] HEMOGLOBIN A1C PANEL Specimen Type: BLOOD Comment: Values obtained from A1C measurements can vary. For atypical A1C assays, a reported value of 7.0 could actually be between 6.72 and 7.28 if measured by a reference method. A reported value of 9.0 could actually be between 8.73 and 9.27. Ref: http://www.ngsp. org/CAPdata.asp Ordering Provider: YAZ WALTERS Report Released Date/Time: Jun 17, 2023 10:24 AM Reporting Lab: [facility] [address] [address] Performing Lab: [address] [address] HEMOGLOBIN A1C 5.9 H 4.0-5.6 Jun 28, 2023 02:[address] [facility] LIVER FUNCTION Specimen Type: SERUM No comment entered. Ordering Provider: YAZ WALTERS Report Released Date/Time: Jun 17, 2023 10:24 AM Reporting Lab: [facility] [address] [address] Performing Lab: [facility] [address] [address] PROTEIN,TOTAL 6.9 g/dL 6.0-8.3 ALBUMIN 3.8 g/dL [...] 87 113/61 18 97 0 184.6 26 [facility] Social History: Smoking Status (Most current) and Tobacco Use (All prior to encounter date) This section includes the most current, and the historical, smoking and tobacco- related health factors from the [facility] facility where the Encounter took place. Current Smoking Status This section includes the most current smoking, or tobacco-related health factor, from the [facility] facility where the Encounter took place. Date/Time Current Smoking Status Comment Jenna ity Oct 29, 2022 03:30 PM [facility] FORMER USER [facility] Tobacco Use History This section includes a history of the smoking, or tobacco-related health factors, that were collected on or before the date of the Encounter. The data comes from the [place] facility where the Encounter took place. Date/Time Smoking Status/Tobacco Use Comment F acility Oct 29, 2022 03:30 PM [place]-TOBACCO QUIT 15 YRS OR MORE [facility] May 21, 2021 07:21 PM [facility]BACCO FOR[facility] May 21, 2021 07:21 PM VA-TOBACCO QUIT [address] OR [address] [facility] Encounter Notes: All associated encounter notes This section contains the clinical notes associated to the Encounter. Date/Time Encounter Note(s) Provider Source Jun 28, 2023 03:05 PM NEUROLOGY OUTPATIENT NOTE: LOCAL TITLE: NEUROLOGY CLINIC NOTE STANDARD TITLE: NEUROLOGY OUTPATIENT NOTE DATE OF NOTE: JUN 28, 2023@15:05 ENTRY DATE: JUN 28, 2023@15:05:57 AUTHOR: ELLIOTT FELIX EXP COSIGNER: URGENCY: STATUS: COMPLETED Chief Complaint: Dementia, depression Interval Hx May Pt is accompanied by spouse. He is unable to provide significant hx, and is unaware of (or glosses over) his dysfunction, and spouse provides majority of information, supplemented by notes. Pt does not think he has any significant problems with memory or thinking or function. He is aware that he is not supposed to drive, but does not remember the reason why, or the previous testing. He is aware that they are 'downsizing', and thinks that they may consider moving someday, but does not recall that they have already commissioned a house to be built and are planning to move. He says he watches TV daily, including the news, but is unaware of any current events or issues. Spouse says that he continues to be highly unmotivated for most activities, and spends majority of the day (up until 5pm) sleeping or lying in bed. He is hard to get out of the house, as a result. He has not been aggressive or disruptive or inappropriate. He continues to want to drive, but has not attempted to do so. Pt has not o/w had any new issues, illness, injuries, hospitalizations, or concerning symptoms or behaviors. NEUROLOGIC EXAM: Gen: WD WN WM in NAD, vague but genial affect, prolonged eye contact, appropriate social interaction. Alertness: Able to maintain attention to conversation and follow directions on exam No distractability, impersistence, or perseveration. Alert/Oriented to Person, Place, Situation, Date Executive Function Months <10 secs fwd 0 errors, <20 secs bwd 2 errors F-I-R-S-T Backwards--3 errors Memory: Five word Recall: (X) List 3: [employer] [place] [employer] Immediate: 5/5 within 3 attempts Delayed 5 minutes: -0/5 Uncued -4/5 w/Category cues -4/5 w/Mult Choice cues Delayed 10 minutes: -0/5 uncued -4/5 w/MC Able to recall distant and recent relevant autobiographical events Language: Fluent language and intact comprehension, without any paraphasic errors. No Dysarthria No Anomia: 5/5 pictures correctly named No Agraphia No Alexia No Paraphasias or Neologisms Able to state 6 F or B words in <1 minute Able to state 6 Animals in <1 minute Visuospatial: Copied shape (Lei-Osterith) 1 Detail errors 1 Structural errors Maximo Clock with 0 errors, placed time correctly No simultagnosia on visualization of story picture Praxis: 4/4 actions correct ideomotor in either hand 4/5 actions correct ideational using both hands (PB+J) Strength in both UE and LE generally intact. Pt ambulating on own, without significant abnormalities of gait. Vitals Enter at: Jun 28, 2023@15:02:15 BP: 113/61 P: 87 R: 18 T: 97.5 184.6 lb [83.73 kg] (06/28/2023 15:02) Assessment/Plan: 83 y/o M w/cognitive impairment, including poor insight and judgement. He continues to improve with cuing, in terms of memory, and has no significant visuospatial deficits. 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 -We discussed condition, and contributing factors -We discussed strategies to reduce the impact, and optimize function -We discussed the limited utility of medications for treatment of vascular cognitive impairment. Elliott Felix MD Staff Neurologist [facility] ~30 mins spent on exam, assessment, counseling, and coordination [ X ] Management of Neurologic Condition was reassessed, taking into account pt's complex other medical issues and medications. [ X ] ~50% of exam was spent on discussion and education or coordination Medication Rec per [employer] Nursing note on May@15:06. NO DISCREPANCIES FOUND other than those listed in note. The patient's medication list/medication history to include Local Active [facility] Prescriptions, Remote Active VA Prescriptions, Non-VA medications, Recently VA Prescriptions (90-180 days), Recently Discontinued VA Prescriptions (90-180 days), and Pending Medication Orders where relevant (e.g., patient is seen by multiple providers in the same day) was compared with CPRS and reviewed with the patient/caregiver and reconciled. Any changes in medications and any medications prescribed by this provider discontinued are documented in this note. Medications not prescribed by this provider will be addressed by pt's PCM or appropriate specialty provider. Discussed risks and possible benefits and mechanism of action of medications prescribed. Pt indicated understanding of the risks of medications, and all questions were answered to pt's satisfaction /es/ ELLIOTT FELIX MD PHYSICIAN Signed: 06/28/2023 15:29 ELLIOTT EFLIX [facility]
--- OUTSIDE RECORDS SUMMARY | 2024-05-17 16:15 | XMS_ITS | Encounter Summary ---
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 Role Phone YAZ WALTERS Primary Care Provider Unavailjason [facility] Insurance Providers: All historical and [...] BASIC INDIV IDUAL May 31, 2008 [id number] LIAN,THE [place] PATIENT CAREMARK-F EP BCBS PRESCRIPT ION FEP CAREM ARK May 31, 2010 [id number] [phone] LIAN,THE [place] PATIENT MEDICARE (WNR) MEDICARE (M) PART A Jan 29, 2005 PART A [id number] LIAN,THE [place] PATIENT MEDICARE (WNR) MEDICARE (M) PART A Jan 29, 2005 PART A [id number] LIAN,THE [place] PATIENT Selected Encounter This section includes the information on record at [place] for the Encounter. Date/Time Encounter Type Encounter Description Reason Provider Source Jun 17, 2023 08:44 AM Outpatient Encounter HC ASSESSMENT JEANA ORTA Encounter Template Text not used by [place] Plan of Treatment: Future Appointments (+ 6 months) and Future Tests (+/- 45 days) The Plan of Treatment section includes future care activities for the [facility] [place] [facility] This section includes future appointments and future orders which are active, pending or scheduled. Future Appointments This section includes appointments that were scheduled to occur 6 months from the date of the Encounter, up to a maximum of 20 appointments. The data comes from all [place] treatment facilities. Appointment Date/Time Appointment Type Appointme nt Facility Name Jun 28, 2023 02:30 PM AMBULATORY - NEUROLOGY [facility] Jun 28, 2023 03:30 PM AMBULATORY - MEDICINE [facility] Jul 05, 2023 03:00 PM AMBULATORY - PSYCHIATRY [facility] Jul 24, 2023 08:00 AM AMBULATORY - MEDICINE [facility] Lab Results: +/- 30 days of the encounter This section includes the Chemistry and Hematology Lab Results on record with [place] for the patient. Radiology Reports and Pathology Reports are provided separately, in subsequent sections. Lab Results This section contains the Chemistry/Hematology Results that were resulted 30 days before or 30 daysafter the date of the Encounter. Date/Time Source Result Type Result - Unit Interpretation Reference Range Comment Jun 28, 2023 03:11 PM [facility] VITAMIN B-1 (THIAMINE)-(QU) Specimen Type: PLASMA Comment: Vitamin supplementation within 24 hours prior to blood draw may affect the accuracy of the results. This test was developed and its analytical performance characteristics have been determined by [address] [place], [place]. It has not been cleared or approved by the U.S. Food and Drug Administration. This assay has been validated pursuant to the CLIA regulations and is used for clinical purposes. Test Performed by [facility] [place], [facility], [address] [place] [address] Zach Tyler M.D., Ph.D., Director of Laboratories , CLIA [id number] TEST PERFORMED AT: , Ordering Provider: SREE FELIX Report Released Date/Time: Jun 28, 2023 03:10 PM Reporting Lab: [facility] [address] [facility] [address] Performing Lab: [facility] [address] [address] VITAMIN B-1 (THIAMINE)-(Q U) 17 nmol/L 8-30 Jun 28, 2023 03:11 PM [facility] IRON & TIBC PANEL Specimen Type: SERUM No comment entered. Ordering Provider: SREE FELIX Report Released Date/Time: Jun 28, 2023 03:10 PM Reporting Lab: [facility] [address] [facility] [address] Performing Lab: [facility] [address] [address] TIBC 310 ug/dL 204-475 IRON 120 ug/dL 40-160 Transferrin Saturation 38.7 20.0-50.0 Jun 28, 2023 03:11 PM [facility] VITAMIN B12 Specimen Type: SERUM No comment entered. Ordering Provider: SREE FELIX Report Released Date/Time: Jun 28, 2023 03:10 PM Reporting Lab: [facility] [address] [facility] [address] Performing Lab: [facility] [address] [address] VITAMIN B12 854 pg/mL 200-900 Jun 28, 2023 02:21 PM [facility] THYROID T4 FREE(FT4) Specimen Type: SERUM No comment entered. Ordering Provider: YAZ WALTERS Report Released Date/Time: Jun 17, 2023 10:24 AM Reporting Lab: [facility] [address] [facility] [address] Performing Lab: [facility] [address] [facility] [address] THYROID T4 FREE(FT4) 0.71 ng/dL 0.6-1.6 Jun 28, 2023 02:21 PM [facility] TSH Specimen Type: SERUM No comment entered. Ordering Provider: YAZ WALTERS Report Released Date/Time: Jun 17, 2023 10:24 AM Reporting Lab: [address] [address] Performing Lab: [address] [address] TSH 4.20 u[IU]/mL 0.35-5.00 Jun 28, 2023 02:21 PM [facility] CBC Specimen Type: BLOOD No comment entered. Ordering Provider: YAZ WALTERS Report Released Date/Time: Jun 17, 2023 10:24 AM Reporting Lab: [address] [address] Performing Lab: [address] [address] WBC 6.39 10*3/uL 4.50-11.00 RBC 5.16 10*6/uL 4.23-5.66 HGB 13.8 g/dL 12.8-17 HCT 43.5 39.2-50.4 MCV 84.3 fL 82-99 MCHC 31.7 g/dL 30.8-35.1 PLT 216 10*3/uL 140-360 RDW-CV 14.7 12.0-16.0 MCH 26.7 pg 26.2-32.6 Jun 28, 2023 02:21 PM [facility] BASIC METABOLIC PANEL (fasting) Specimen Type: SERUM No comment entered. Ordering Provider: YAZ WALTERS Report Released Date/Time: Jun 17, 2023 10:24 AM Reporting Lab: [address] [address] Performing Lab: [address] [address] UREA NITROGEN 14 mg/dL 7-25 GLUCOSE 110 mg/dL H 65-100 SODIUM 139 mmol/L 135-145 POTASSIUM 4.5 mmol/L 3.5-5.0 CHLORIDE 105 mmol/L 100-110 CO2 26 meq/L 20-30 CREATININE, Serum 1.45 mg/dL H 0.50-1.40 eGFR(CKD-EPI 2020) 48 mL/min L >60 Jun 28, 2023 02:21 PM [facility] LIPID PANEL FASTING Specimen Type: SERUM No comment entered. Ordering Provider: YAZ WALTERS Report Released Date/Time: Jun 17, 2023 10:24 AM Reporting Lab: [facility] [address] [facility] [address] Performing Lab: [address] [address] CHOLESTEROL 209 mg/dL H TRIGLYCERIDE 113 mg/dL 0-150 LDL calculated 139 mg/dL H 0-129 CHOL/HDL 4.4 HDL CHOLESTEROL 47 mg/dL 40-60 Jun 28, 2023 02:21 PM [facility] LIVER FUNCTION Specimen Type: SERUM No comment entered. Ordering Provider: YAZ WALTERS Report Released Date/Time: Jun 17, 2023 10:24 AM Reporting Lab: [address] [address] Performing Lab: [address] [address] PROTEIN,TOTAL 6.9 g/dL 6.0-8.3 ALBUMIN 3.8 g/dL 3.5-5.0 ALKALINE PHOSPHATASE 46 U/L 40-150 AST 20 U/L 5-34 ALT 30 U/L BILIRUBIN, TOTAL 0.7 mg/dL 0.2-1.2 Jun 28, 2023 02:21 PM [facility] HEMOGLOBIN A1C PANEL Specimen Type: BLOOD Comment: Values obtained from A1C measurements can vary. For atypical A1C assays, a reported value of 7.0 could actually be between 6.72 and 7.28 if measured by a reference method. A reported value of 9.0 could actually be between 8.73 and 9.27. Ref: http://www.ngsp. org/CAPdata.asp Ordering Provider: WALTERS,YAZ J Report Released Date/Time: Jun 17, 2023 10:24 AM Reporting Lab: [facility] [address] [facility] [address] Performing Lab: [facility] [address] [facility] [address] HEMOGLOBIN A1C 5.9 H 4.0-5.6 Social History: Smoking Status (Most current) and Tobacco Use (All prior to encounter date) This section includes the most current, and the historical, smoking and tobacco- related health factors from the [place] facility where the Encounter took place. Current Smoking Status This section includes the most current smoking, or tobacco-related health factor, from the [place] facility where the Encounter took place. Date/Time Current Smoking Status Comment Facil ity Oct 29, 2022 03:30 PM [place] FORMER USER [facility] Tobacco Use History This section includes a history of the smoking, or tobacco-related health factors, that were collected on or before the date of the Encounter. The data comes from the [place] facility where the Encounter took place. Date/Time Smoking Status/Tobacco Use Comment F acility Oct 29, 2022 03:30 PM VA-TOBACCO QUIT 15 YRS OR MORE [facility] May 21, 2021 07:21 PM [facility]-TOBACCO FORMER USER [facility] May 21, 2021 07:21 PM VA-TOBACCO QUIT 15 YRS OR MORE [facility] Encounter Notes: All associated encounter notes This section contains the clinical notes associated to the Encounter. Date/Time Encounter Note(s) Provider Source Jun 17, 2023 08:44 AM GERIATRIC MEDICINE NOTE: LOCAL TITLE: PERSONAL CARE SERVICES CASE MIX TOOL STANDARD TITLE: GERIATRIC MEDICINE NOTE DATE OF NOTE: JUN 17, 2023@08:44:39 ENTRY DATE: JUN 17, 2023@08:44:39 AUTHOR: JEANA ORTA EXP COSIGNER: URGENCY: STATUS: COMPLETED HCBS Case Mix & Budget Tool (CASE MIX) Date Given: 06/17/2023 Clinician: Jeana Orta Location: [facility] [place] [place]: Thang Beal SSN: [id number] : [birth year] ([birth year]) Gender: Man Type of Evaluation: Annual Anticipated Start Date: 06/17/2023 Anticipated Length of Service: 12 months Case Mix Level: B ADL Category: Low Questions and Answers: Q1. DRESSING 1 Need and get minimal supervision or reminding. Q2. GROOMING 1 Need and get supervision or reminding or grooming activities. Q3. BATHING 3 Need and get help getting in and out of the tub. Q4. EATING *3 Need and get some personal help with feeding or someone needs to be sure that you don't choke. Q5. BED MOBILITY 0 Can move in bed without any help. Q6. TRANSFERRING 1 Need somebody to be there to guide you but can move in and out of a bed or chair. Q7. WALKING 1 Can walk with help of a cane, walker, crutch, or push wheelchair. Q8. BEHAVIOR *3 Behavior management / disruptive behavior / may be resistant to redirection. Q9. COMMUNICATION 1 Usually Understood. Q10. TOILETING *1 Need some help to get to and on the toilet but don't have accidents. Q11. MDS HC 2.0/CPS Cognitive Skill for Daily Decision Making 2 Moderately Impaired - decisions poor; cues/supervision required. Q12. MDS 2.0/CPS: Short Term Memory (recall of what was learned or known) 1 Memory problem Q13. SPECIAL TREATMENTS 0 No [place] Q14. CLINICAL MONITORING 0 Less than once a day Q15. SPECIAL NURSING No Q16. NEUROMUSCULAR DIAGNOSIS No COMMENTS SKIPPED SOURCES 3. 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
--- OUTSIDE RECORDS SUMMARY | 2024-05-17 16:15 | XMS_ITS | Encounter Summary ---
Author Name [facility] [facility] [place] [facility] [place] Address [address] [place] [address] Care Team Providers Care Care Navigator Name Role Phone YAZ WALTERS Primary [facility] Insurance Providers: All historical and current Section [...] BASIC INDIV IDUAL May 31, 2008 [id number] LIAN,THE [place] PATIENT CAREMARK-F EP BCBS PRESCRIPT ION FEP CAREM ARK May 31, 2010 [id number] LIAN,THE [place] PATIENT MEDICARE (WNR) MEDICARE (M) PART A Jan 29, 2005 PART A [id number] [phone] LIAN,THE [place] PATIENT MEDICARE (WNR) MEDICARE (M) PART A Jan 29, 2005 PART A [id number] LIAN,THE [place] PATIENT Selected Encounter This section includes the information on record at [place] for the Encounter. Date/Time Encounter Type Encounter Description Reason Provider Source Dec 30, 2023 01:00 PM OFFICE O/P EST MOD 30 [facility] - IND ICD-10-CM F03.B18 Unsp dementia, moderate, with other behavioral disturb JACI CRUZ E Encounter Template Text not used by [place] Assessments - Encounter Diagnoses This section includes the primary and secondary diagnoses documented for the Encounter. Date/Time Primary/Secondary Diagnosis Diagnosis Name Provider Source Feb 01, 2024 09:54 AM PRIMARY Unsp dementia, moderate, with other behavioral disturb JACI CRUZ [place] [facility] [place] [facility] Feb 01, 2024 09:54 AM SECONDARY Major depressive disorder, single episode, moderate JACI CRUZ [place] [facility] [place] [facility] Plan of Treatment: Future Appointments (+ 6 months) and Future Tests (+/- 45 days) The Plan of Treatment section includes [facility] care activities for the [facility] [place] [facility] This section includes future appointments and future orders which are active, pending or scheduled. Future Appointments This section includes appointments that were scheduled to occur 6 months from the date of the Encounter, up to a maximum of 20 appointments. The data comes from all [place] treatment facilities. Appointment Date/Time Appointment Type Appointme nt Facility Name Jan 05, 2024 08:00 AM AMBULATORY - MEDICINE [place] [facility] [place] [facility] Jan 06, 2024 02:00 PM AMBULATORY - MEDICINE [place] [facility] [place] [facility] Jan 10, 2024 08:00 AM AMBULATORY - MEDICINE [place] [facility] [place] [facility] Feb 01, 2024 09:00 AM AMBULATORY - MEDICINE [place] [facility] [place] [facility] Feb 14, 2024 02:30 PM AMBULATORY - PSYCHIATRY [place] [facility] [place] [facility] Mar 22, 2024 03:30 PM AMBULATORY - MEDICINE [place] [facility] [place] [facility] Mar 27, 2024 02:00 PM AMBULATORY - NONE [place] [facility] [place] [facility] Apr 19, 2024 02:00 PM AMBULATORY - NONE [place] [facility] [place] [facility] Jun 12, 2024 03:00 PM AMBULATORY - PSYCHIATRY [place] [facility] [place] [facility] Jun 22, 2024 03:00 PM [facility] Jun 28, 2024 02:00 PM [facility]UL[facility] - NONE [place] [facility] Active, Pending, and Scheduled Orders This section includes a listing of several types of active, pending, and scheduled orders, including clinic medications orders, diagnostic test orders, procedure orders and consult orders; where the start date of the order is 45 days before the date of the Encounter or 45 days after the date of theEncounter. The data comes from all [place] treatment facilities. Test Date/Time Test Type Test Details Facility Name Dec 31, 2023 03:28 PM Consult Order [facility]OLOGY [facility] [employer] [place] [facility] Jan 04, 2024 03:44 PM Consult Order [facility] NON-SKILLED HOME HEALTH AIDE Cons [employer] Worker's Choice [facility] Jan 09, 2024 05:34 PM Consult Order [facility] SK[facility] CARE Cons [employer] Worker's Choice [facility] Lab Results: +/- 30 days of the encounter This section includes the Chemistry and Hematology Lab Results on record with [place] for the patient. Radiology Reports and Pathology Reports are provided separately, in subsequent sections. Lab Results This section contains the Chemistry/Hematology Results that were resulted 30 days before or 30 daysafter the date of the Encounter. Date/Time Source Result Type Result - Unit Interpretation Reference Range Comment Jan 06, 2024 02:57 PM [facility] CBC Specimen Type: BLOOD No comment entered. Ordering Provider: SOTO WALTERS Report Released Date/Time: Dec 28, 2023 10:07 AM Reporting Lab: [facility] [address] [address] Performing Lab: [facility] [address] [address] WBC 6.55 10*3/uL 4.50-11.00 RBC 5.28 10*6/uL 4.23-5.66 HGB 14.2 g/dL 12.8-17 HCT 44.0 39.2-50.4 MCV 83.3 fL 82-99 MCHC 32.3 g/dL 30.8-35.1 PLT 217 10*3/uL 140-360 RDW-CV 15.0 12.0-16.0 MCH 26.9 pg 26.2-32.6 Jan 06, 2024 02:57 PM [facility] LIPID PANEL, NON FASTING Specimen Type: SERUM No comment entered. Ordering Provider: SOTO WALTERS Report Released Date/Time: Dec 28, 2023 10:07 AM Reporting Lab: [address] [address] Performing Lab: [address] [address] CHOLESTEROL 206 mg/dL H TRIGLYCERIDE 124 mg/dL 0-150 LDL calculated 139 mg/dL H 0-129 CHOL/HDL 4.9 HDL CHOLESTEROL 42 mg/dL 40-60 Jan 06, 2024 02:57 PM [facility] BASIC METABOLIC PANEL (non-fasting) Specimen Type: SERUM No comment entered. Ordering Provider: SOTO WALTERS Report Released Date/Time: Dec 28, 2023 10:07 AM Reporting Lab: [address] [address] Performing Lab: [address] [address] UREA NITROGEN 16 mg/dL 7-25 GLUCOSE 100 mg/dL 65-100 SODIUM 137 mmol/L 135-145 POTASSIUM 4.7 mmol/L 3.5-5.0 CHLORIDE 109 mmol/L 100-110 CO2 22 meq/L 20-30 CREATININE, Serum 1.41 mg/dL H 0.50-1.40 eGFR(CKD-EPI 2020) 49 mL/min L >60 Jan 06, 2024 02:57 PM [facility] LIVER FUNCTION Specimen Type: SERUM No comment entered. Ordering Provider: SOTO WALTERS Report Released Date/Time: Dec 28, 2023 10:07 AM Reporting Lab: [address] [address] Performing Lab: [facility] [address] [address] PROTEIN,TOTAL 6.5 g/dL 6.0-8.3 ALBUMIN 3.5 g/dL 3.5-5.0 ALKALINE PHOSPHATASE 46 U/L 40-150 AST 14 U/L 5-34 ALT 21 U/L BILIRUBIN, TOTAL 0.6 mg/dL 0.2-1.2 Social History: Smoking Status (Most current) and Tobacco Use (All prior to encounter date) This section includes the most current, and the historical, smoking and tobacco- related health factors from the [place] facility where the Encounter took place. Current Smoking Status This section includes the most current smoking, or tobacco-related health factor, from the [place] facility where the Encounter took place. Date/Time Current Smoking Status Comment Facil ity Oct 29, 2022 03:30 PM VA-TOBACCO FORMER USER [facility] Tobacco Use History This section includes a history of the smoking, or tobacco-related health factors, that were collected on or before the date of the Encounter. The data comes from the [place] facility where the Encounter took place. Date/Time Smoking Status/Tobacco Use Comment F acility Oct 29, 2022 03:30 PM VA-TOBACCO QUIT 15 YRS OR MORE [facility] May 21, 2021 07:21 PM VA-TOBACCO FORMER USER [facility] May 21, 2021 07:21 PM [place]-TOBACCO QUIT 15 YRS OR MORE [facility] Radiology Reports: +/- 30 days of the encounter Radiology Reports For cases when an order for radiology services may have been completed prior to the date of the Encounter, the report list includes the Radiology Reports that were completed up to 30 days before dateof the Encounter. For cases when an order for radiology services may have been completed after the date of the Encounter, the report list also includes the Radiology Reports that were completed up to30 days after date of the Encounter. The data comes from all [place] treatment facilities. Date/Time Radiology Report Provider Source Jan 06, 2024 03:[address] THORAX W/O CONT: MARY BEAL EDWAR [id number] M Exm Date: JAN 06, 2024@15:07 Req Phys: YAZ WALTERS Loc: CWM/NO/PACT 7 (Req'g Loc) Img Loc: [place]/CT Service: Unknown [place] [facility] , (Case [id number] COMPLETE) CT THORAX W/O CONT (CT Detailed) CPT:17521 Reason for Study: follow up Clinical History: lung nodule Report Status: Verified Date Reported: JAN 06, 2024 Date Verified: JAN 06, 2024 [employer]:/ES/ELISABETH RDZ JR Report: Study: Noncontrast CT scan of the chest. Comparison: CT scan the chest from February 09, 2022 TECHNIQUE: Contiguous axial [address] imaging is performed from the lung apices through the lung bases without the administration of intravenous contrast as per standard department protocol. Subsequently, sagittal and coronal reformats were generated. The lack of intravenous contrast inherently limits the evaluation of hilar structures, vascular structures, and abnormal enhancement patterns. Lower than standard dose was utilized limiting sensitivity for fine parenchymal detail. Dose Parameters: CTDI(vol): 2.8 mGy. DLP: 96.1 mGy*cm. Findings: Chest: Small subcutaneous lipoma medial to the right scapula again seen, 3-58. Lungs: Resolved 4.8 mm right lower lobe pulmonary nodule consistent with transient infectious or inflammatory process. No new concerning pulmonary nodule or mass is identified. Mild to moderate dependent changes are present at the lung bases. Clear lungs without consolidation, mass, or parenchymal nodule. The tracheobronchial tree is patent. No pneumothorax. Mild elevation of right hemidiaphragm again seen. Pleural: No pleural effusion or thickening. Mediastinum/hilum/lymph nodes: Normal. No mediastinal lymphadenopathy by size criteria. No axillary lymphadenopathy by size criteria. Heart and pericardium: The heart size is normal. No pericardial effusion. Vessels: Atherosclerotic changes of the aorta and coronary arteries. Normal caliber thoracic aorta. Chest wall and lower neck: Normal. Included thyroid is normal. Upper abdomen: Hepatic cysts are unchanged. Otherwise, the visualized abdominal structures appear normal. Skeletal: Normal age-related degenerative changes. Impression: Resolved right lower lobe pulmonary nodule. No routine follow-up imaging is required. Further imaging follow-up should only be as clinically indicated. Primary Diagnostic Code: No immediate attention required Primary Interpreting Staff: ELISABETH RDZ JR, Radiologist ([employer]) /ELISABETH PHILLIPS JR [place] [facility] Encounter Notes: All associated encounter notes This section contains the clinical notes associated to the Encounter. 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 Multiple falls out of bed in the past few weeks-- installed a guard rail, and now no falls since then. But vet will remove it in the night. Sleeps about 12a- 9am, but sometimes sleeps in to the afternoon. Has some days of not getting out of bed until noon about half the days. No major change in weight, remains concerns that he eats 3 bowls ice cream. Vet takes meds, but takes bupropion SA out of the capsule before taking it, can't say why, just says he has a hangup . Vet monzon snot not have a subjective sense of his cognitive defiticits, reports memory is getting worse. He blames his for any deficits he has. CURRENT MEDICATIONS Active Outpatient Medications (including Supplies): BUPROPION HCL 150MG 12HR SA TAB TAKE ONE TABLET BY MOUTH ACTIVE EVERY MORNING GALANTAMINE HYDROBROMIDE 8MG SA CAP TAKE ONE CAPSULE BY ACTIVE MOUTH EVERY MORNING (TAKE IN THE MORNING, PREFERABLY WITH FOOD)FOR ALZHEIMER'S DEMENTIA MIRTAZAPINE 15MG TAB TAKE ONE-HALF TABLET BY MOUTH AT ACTIVE BEDTIME FOR DEPRESSION/MOOD Non-VA LOSARTAN 50MG TAB 50MG BY MOUTH ONCE DAILY ACTIVE SUPPLEMENTS: ALLERGIES: Patient has answered NKA MEDICAL HISTORY Active Problem Dementia F03.B18 08/21/2022 SREE FELIX Major depressive disorder F32.1 03/16/2022 ALIZA CRUZ Pharyngeal dysphagia R13.13 12/11/2021 JAD ALEXIS Cognitive disorder R41.9 10/24/2021 TRENTON PAULINO HTN - Hypertension ([facility] [id number]) I 06/25/2021 YAZ WALTERS Hyperlipidemia ([facility] [id number]) E78.5 06/25/2021 YAZ WALTERS Sleep Apnea ([facility] [id number]) G47.30 06/25/2021 YAZ WALTERS Basal cell carcinoma of skin C44.91 06/25/2021 YAZ WALTERS Multiple nodules of lung R69. 06/25/2021 YAZ WALTERS Under care of multiple providers R6 06/25/2021 YAZ WALTERS BMI: 25.8 PREVIOUS PSYCHIATRIC MEDICATION TRIALS AND RESPONSE citalopram--not sure if helpful. 2 years bupropion--maybe a little helpful at first, but then did not seem to make a difference. SUBSTANCE USE: Alcohol: Minimal MJ: none Tobacco: none Caffeine: Drinks 2-3 cups daily Opiates: none Cocaine: none Other: MENTAL STATUS EXAM: Awake, alert, cooperative, well groomed. Restless in chair, fidgeting throughout the visit. Disheveled white hair. Normal EC. He has an agnosia for his memory problems, tending to attribute a lot of problems to his . Speech nml r/r/r/v/p Mood fine Affect: constricted Thought Process Linear Thought Content: No delusions. denies any sign of delusions or hallucinations at home. 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 vascular vs. mixed), no prior psychiatric hospitalizations, no suicidality. Since neuropsych testing in 08/2021 mood has been lower related to having his driver wheelchair's license taken away. Has had difficulty with cognitive flexibility and adjusting to this limitation, has been spending days in bed and appearing more withdrawn. Continues on citalopram 40mg which says has not been helpful over the past 2 years. I. Dementia II. MDD DIFFERENTIAL DIAGNOSIS Major neurocognitive disorder (Alzheimer's vs. vascular vs. mixed) Possible MDD vs. adjustment disorder with depressed mood. Anxiety likely related to cognitive decline. PLAN -community consult to neurology -cont mirtazapine 7.5mg po at bedtime for insomnia and anxiety. We reviewed risks including oversedation, falls, weight gain. -cont bupropion SR 150mg qam for mood and energy -PCP--galantamine for dementia. While vet is waiting for new neurologist, will increase galantamine to SR 16mg daily at night. - is looking into a support group -caregiver support--there was a consult for a HOSPICE ART THERAPIST but it seems stalled--will investigate. REFILLS/COVERAGE ok for refills of regular meds if needed. FOLLOW UP IN CLINIC TIME SPENT FACE TO FACE: 25m TOTAL TIME INCLUDING CHART REVIEW AND DOCUMENTATION: 30m SUICDE RISK ASSESSMENT: Low chronic and low acute risk. Based on risk and protective factors, the patient is considered to be at low imminent and low chronic risk for suicide /danger to others at the time of this evaluation. Advised to contact me via call center or secure messaging for any questions or concerns between visits. Pt was reminded to call [phone] option 1 if in crisis, or to call 911 or go to nearest ED if risk of acute harm to self or others. The discussion with patient about treatments including medications involved shared decision making. The patient was educated about the rationale and plan for the psychiatric medications. Medication instructions were reviewed with the patient. Alternatives to treatment were discussed with the patient. The side effect profile of the psychiatric medications was reviewed with the patient. This also included discussion of potential drug interactions associated with psychiatric medication. The patient discussed/verbalized back the understanding of the medication, side effects, and the plan/instructions, and the patient asked good questions. The patient demonstrated reasonable understanding of the medication side effects and the above-mentioned issues. The benefits of psychiatric medications outweigh risks for this patient. The patient consents to medication treatment. I encouraged the to call or message me or to come to open access if the does not like the effect of psychiatric medication or if has side effects. Medication Reconciliation: Outpatient: Has the patient been [...] whether with a VA or non-VA provider. Problem List was reviewed and updated. Suicide Screen: C-SSRS Screening [place]-Suicide Severity Rating Scale (C-SSRS Screener) 1. Over the past month, have you wished you were or wished you could go to sleep and not wake up? No 2. Over the past month, have you had any actual thoughts of killing yourself? No 3. Over the past month, have you been thinking about how you might do this? Response not required due to responses to other questions. 4. Over the past month, have you had these thoughts and had some intention of acting on them? Response not required due to responses to other questions. 5. Over the past month, have you started to work out or worked out the details of how to kill yourself? Response not required due to responses to other questions. 6. If yes, at any time in the past month did you intend to carry out this plan? Response not required due to responses to other questions. 7. In your lifetime, have you ever done anything, started to do anything, or prepared to do anything to end your life (for example, collected pills, obtained a gun, gave away valuables, went to the roof but didn't jump)? No 8. If YES, was this within the past 3 months? Response not required due to responses to other questions. /nick/ ALIZA CRUZ PSYCHIATRIST Signed: 12/31/2023 15:29 ALIZA CRUZ [place] [facility]
--- OUTSIDE RECORDS SUMMARY | 2024-05-17 16:15 | XMS_ITS | Encounter Summary ---
Author Name [facility] [place] Address [address] [place] [address] Care Team Providers Care Novelty Twister Tender Name Role Phone YAZ WALTERS Primary [facility] Insurance Providers: All historical and [...] BASIC INDIV IDUAL May 31, 2008 [id number] LIAN,THE [place] PATIENT CAREMARK-F EP BCBS PRESCRIPT ION FEP CAREM ARK May 31, 2010 [id number] LIAN,THE [place] PATIENT MEDICARE (WNR) MEDICARE (M) PART A Jan 29, 2005 PART A [id number] LIAN,THE [place] PATIENT MEDICARE (WNR) MEDICARE (M) PART A Jan 29, 2005 PART A [id number] LIAN,THE [place] PATIENT Selected Encounter This section includes the information on record at [place] for the Encounter. Date/Time Encounter Type Encounter Description Reason Provider Source Jul 05, 2023 03:00 PM OFFICE O/P EST MOD 30 [facility] - IND ICD-10-CM F03.B18 Unsp dementia, moderate, with other behavioral disturb NANCYELIANECHECO Murphy E IHE Encounter Template Text not used by [place] Assessments - Encounter Diagnoses This section includes the primary and secondary diagnoses documented for the Encounter. Date/Time Primary/Secondary Diagnosis Diagnosis Name Provider Source Jul 14, 2023 02:38 PM PRIMARY Unsp dementia, moderate, with other behavioral disturb JACI CRUZ [facility] Jul 14, 2023 02:38 PM SECONDARY Major depressive disorder, single episode, moderate CRUZ,LIBERTYIC A E [facility] Plan of Treatment: Future Appointments (+ 6 months) and Future Tests (+/- 45 days) The Plan of Treatment section includes future care activities for the patient from all [place] [facility]. This section includes future appointments and future orders which are active, pending or scheduled. Future Appointments This section includes appointments that were scheduled to occur 6 months from the date of the Encounter, up to a maximum of 20 appointments. The data comes from all [place] treatment facilities. Appointment Date/Time Appointment Type Appointme nt Facility Name Jul 24, 2023 08:00 AM AMBULATORY - MEDICINE [facility] Dec 30, 2023 01:00 PM AMBULATORY - PSYCHIATRY [facility] Lab Results: +/- 30 days of the encounter This section includes the Chemistry and Hematology Lab Results on record with [place] for the patient. Radiology Reports and Pathology Reports are provided separately, in subsequent sections. Lab Results This section contains the Chemistry/Hematology Results that were resulted 30 days before or 30 daysafter the date of the Encounter. Date/Time Source Result Type Result - Unit Interpretation Reference Range Comment Jun 28, 2023 03:11 PM [facility] VITAMIN B-1 (THIAMINE)-(QU) Specimen Type: PLASMA Comment: Vitamin supplementation within 24 hours prior to blood draw may affect the accuracy of the results. This test was developed and its analytical performance characteristics have been determined by [employer] [place], [place]. It has not been cleared or approved by the U.S. Food and Drug Administration. This assay has been validated pursuant to the CLIA regulations and is used for clinical purposes. Test Performed by [facility], [employer] [facility], [address] [place] [address] Zach Tyler M.D., Ph.D., Director of Laboratories , CLIA [id number] TEST PERFORMED AT: , Ordering Provider: SREE FELIX Report Released Date/Time: Jun 28, 2023 03:10 PM Reporting Lab: [address] [address] Performing Lab: [place] [id number] [address] VITAMIN B-1 (THIAMINE)-(Q U) 17 nmol/L 8-30 Jun 28, 2023 03:11 PM [facility] IRON & TIBC PANEL Specimen Type: SERUM No comment entered. Ordering Provider: SREE FELIX Report Released Date/Time: Jun 28, 2023 03:10 PM Reporting Lab: [address] [address] Performing Lab: [address] [address] TIBC 310 ug/dL 204-475 IRON 120 ug/dL 40-160 Transferrin Saturation 38.7 20.0-50.0 Jun 28, 2023 03:11 PM [facility] VITAMIN B12 Specimen Type: SERUM No comment entered. Ordering Provider: SREE FELIX Report Released Date/Time: Jun 28, 2023 03:10 PM Reporting Lab: [address] [address] Performing Lab: [address] [address] VITAMIN B12 854 pg/mL 200-900 Jun 28, 2023 02:21 PM [facility] THYROID T4 FREE(FT4) Specimen Type: SERUM No comment entered. Ordering Provider: YAZ WALTERS Report Released Date/Time: Jun 17, 2023 10:24 AM Reporting Lab: [facility] [address] [facility] [address] Performing Lab: [facility] [address] [address] THYROID T4 FREE(FT4) 0.71 ng/dL 0.6-1.6 Jun 28, 2023 02:21 PM [facility] CBC Specimen Type: BLOOD No comment entered. Ordering Provider: YAZ WALTERS Report Released Date/Time: Jun 17, 2023 10:24 AM Reporting Lab: [facility] [address] [facility] [address] Performing Lab: [address] [address] WBC 6.39 10*3/uL 4.50-11.00 RBC 5.16 10*6/uL 4.23-5.66 HGB 13.8 g/dL 12.8-17 HCT 43.5 39.2-50.4 MCV 84.3 fL 82-99 MCHC 31.7 g/dL 30.8-35.1 PLT 216 10*3/uL 140-360 RDW-CV 14.7 12.0-16.0 MCH 26.7 pg 26.2-32.6 Jun 28, 2023 02:21 PM [facility] TSH Specimen Type: SERUM No comment entered. Ordering Provider: YAZ WALTERS Report Released Date/Time: Jun 17, 2023 10:24 AM Reporting Lab: [facility] [address] [facility] [address] Performing Lab: [address] [address] TSH 4.20 u[IU]/mL 0.35-5.00 Jun 28, 2023 02:21 PM [facility] BASIC METABOLIC PANEL (fasting) Specimen Type: SERUM No comment entered. Ordering Provider: YAZ WALTERS Report Released Date/Time: Jun 17, 2023 10:24 AM Reporting Lab: [facility] [address] [facility] [address] Performing Lab: [facility] [address] [facility] [address] UREA NITROGEN 14 mg/dL 7-25 GLUCOSE 110 mg/dL H 65-100 SODIUM 139 mmol/L 135-145 POTASSIUM 4.5 mmol/L 3.5-5.0 CHLORIDE 105 mmol/L 100-110 CO2 26 meq/L 20-30 CREATININE, Serum 1.45 mg/dL H 0.50-1.40 eGFR(CKD-EPI 2020) 48 mL/min L >60 Jun 28, 2023 02:21 PM [facility] HEMOGLOBIN A1C PANEL Specimen Type: BLOOD [...] Jun 17, 2023 10:24 AM Reporting Lab: [facility] [address] [facility] [address] Performing Lab: [address] [address] HEMOGLOBIN A1C 5.9 H 4.0-5.6 Jun 28, 2023 02:21 PM [facility] LIPID PANEL FASTING Specimen Type: SERUM No comment entered. Ordering Provider: YAZ WALTERS Report Released Date/Time: Jun 17, 2023 10:24 AM Reporting Lab: [facility] [address] [facility] [address] Performing Lab: [address] [address] CHOLESTEROL 209 mg/dL H TRIGLYCERIDE 113 mg/dL 0-150 LDL calculated 139 mg/dL H 0-129 CHOL/HDL 4.4 HDL CHOLESTEROL 47 mg/dL 40-60 Jun 28, 2023 02:21 PM [facility] LIVER FUNCTION Specimen Type: SERUM No comment entered. Ordering Provider: YAZ WALTERS Report Released Date/Time: Jun 17, 2023 10:24 AM Reporting Lab: [facility] [address] [facility] [address] Performing Lab: [facility] [address] [facility] [address] PROTEIN,TOTAL 6.9 g/dL 6.0-8.3 ALBUMIN 3.8 g/dL 3.5-5.0 ALKALINE PHOSPHATASE 46 U/L 40-150 AST 20 U/L 5-34 ALT 30 U/L BILIRUBIN, TOTAL 0.7 mg/dL 0.2-1.2 Social History: Smoking Status (Most current) and Tobacco Use (All prior to encounter date) This section includes the most current, and the historical, smoking and tobacco- related health factors from the [place] facility where the Encounter took place. Current Smoking Status This section includes the most current smoking, or tobacco-related health factor, from the [place] facility where the Encounter took place. Date/Time Current Smoking Status Comment Jenna ity Oct 29, 2022 03:30 PM VA-TOBACCO FORMER USER [facility] Tobacco Use History This section includes a history of the smoking, or tobacco-related health factors, that were collected on or before the date of the Encounter. The data comes from the [place] facility where the Encounter took place. Date/Time Smoking Status/Tobacco Use Comment F acility Oct 29, 2022 03:30 PM VA-TOBACCO QUIT [facility] May 21, 2021 07:21 PM [facility] May 21, 2021 07:21 PM [place]-TOBACCO QUIT 15 YRS OR MORE [facility] Encounter Notes: All associated encounter notes This section contains the clinical notes associated to the Encounter. 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 Gets out of bed 9-11am, but 3 days per week stays in bed all day. Vet says he has no reason to get up. When he is up, he spends days putzing around and has been washing dishes. Generally sleeps ok, but with occasional middle insomnia. No falls, though he stumbles at times. Denies any dizziness. Eats ok for lunch, but not so much for lunch. is concerned about ice cream intake. Showers once per week, is concerned grooming is poor. CURRENT MEDICATIONS Active Outpatient Medications (including Supplies): BENZONATATE 100MG CAP TAKE ONE CAPSULE BY MOUTH THREE ACTIVE TIMES DAILY NEEDED FOR COUGH BUPROPION HCL 100MG 12HR SA TAB TAKE [...] R41.9 10/24/2021 [place] PAULINO HTN - Hypertension ([facility] [id number]) I 06/25/2021 YAZ WALTERS Hyperlipidemia ([facility] [id number]) E78.5 06/25/2021 YAZ WALTERS Sleep Apnea ([facility] [id number]) G47.30 06/25/2021 YAZ WALTERS Basal cell carcinoma [...] the visit. Disheveled white hair. Normal EC. Speech nml r/r/r/v/p Mood fine Affect: constricted Thought Process Linear Thought Content: No delusions. Does not mention driving. SI/HI: Denies No AH/VH a/ox3 I/J impaired insight MOCA: (moderate cognitive impairment) Not oriented to month (February), day or year (2020. Oriented to [place] but not to City. Able to copy a cube and draw a clock well, but trail making was impaired. 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 vascular vs. mixed), no prior psychiatric hospitalizations, no suicidality. 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 Has had difficulty with [...] Anxiety likely related to cognitive decline. PLAN -cont mirtazapine 7.5mg po at bedtime for insomnia and anxiety. We reviewed risks including oversedation, falls, weight gain. -increase bupropion SR to 150mg qam for mood and energy -PCP--galantamine for dementia. -continued education for , she seems very frustrated with his limitations. -[facility] for more activities REFILLS/COVERAGE ok for refills of regular meds [...] this [facility] (local) and dispensed from another [place] or DoD facility (remote) as well as [...] provider. Problem List was reviewed and updated. /nick/ ALIZA CRUZ PSYCHIATRIST Signed: 07/05/2023 15:50 ALIZA CRUZ [facility] HCS
--- OUTSIDE RECORDS SUMMARY | 2024-05-17 16:15 | XMS_ITS | Encounter Summary ---
Author Name [place] Address [address] [place] [id number] Care Team Providers Care Client Relations Associate Name Role Phone YAZ WALTERS Primary Care Provider [facility] Insurance Providers: All historical [...] BASIC INDIV IDUAL May 31, 2008 111 [id number] LIAN,THE [place] PATIENT CAREMARK-F EP BCBS PRESCRIPT ION FEP CAREM ARK May 31, 2010 [id number] [phone] LIAN,THE [place] PATIENT MEDICARE (WNR) MEDICARE (M) PART A Jan 29, 2005 PART A [id number] [phone] LIAN,THE [place] PATIENT MEDICARE (WNR) MEDICARE (M) PART A Jan 29, 2005 PART A [id number] [phone] [id number] LIAN,THE [place] PATIENT Selected Encounter This section includes the information on record at [place] for the Encounter. Date/Time Encounter Type Encounter Description Reason Provider Source Jan 04, 2024 10:03 AM Outpatient Encounter [facility] ASSESSMENT JEANA ORTA Encounter Template Text not used by [place] Plan of Treatment: Future Appointments (+ 6 months) and Future Tests (+/- 45 days) The Plan of Treatment section includes future care activities for the patient [facility] [place] [facility] This section includes future appointments and future orders which are active, pending or scheduled. Future Appointments This section includes appointments that were scheduled to occur 6 months from the date of the Encounter, up to a maximum of 20 appointments. The data comes from all [place] treatment facilities. Appointment Date/Time Appointment Type Appointme nt Facility Name Jan 05, 2024 08:00 AM AM[place]ULATORY [place]ICINE [place] [facility] [place] [facility] Jan 06, 2024 02:00 PM AM[place]ATORY [place]ICINE [place] [facility] [facility] [facility] Jan 10, 2024 08:00 AM AMBULATORY [place] MEDICINE [place] [facility] [facility] [place] [facility] Feb 01, 2024 09:00 AM AM[place]ULATORY [place]ICINE [place] [facility] [facility] [facility] Feb 14, 2024 02:30 PM AMBULATORY - PS[place]CHIATRY [place] [facility] [place] [facility] Mar 22, 2024 03:30 PM AMBULATORY - MEDICINE [place] [facility] [place] [facility] Mar 27, 2024 02:00 PM AMBULATORY - NONE [place] [facility] [place] [facility] Apr 19, 2024 02:00 PM AMBULATORY - NONE [place] [facility] [place] [facility] Jun 12, 2024 03:00 PM AMBULATORY - PS[place]CHIATRY [place] [facility] [place] [facility] Jun 22, 2024 03:00 PM AMBULATORY - MEDICINE [place] [facility] [facility] Jun 28, 2024 02:00 PM AMBULATORY - NONE [place] [facility] [place] [facility] Jul 03, 2024 02:00 PM AMBULATORY - MEDICINE [place] [facility] [place] [facility] Active, Pending, and Scheduled Orders This section includes a listing of several types of active, pending, and scheduled orders, including clinic medications orders, diagnostic test orders, procedure orders and consult orders; where the start date of the order is 45 days before the date of the Encounter or 45 days after the date of theEncounter. The data comes from all [place] treatment facilities. Test Date/Time Test Type Test Details Facility Name Dec 31, 2023 03:28 PM Consult Order [facility]-NEUROLOGY Cons [employer] [place] [facility] [place] [facility] Jan 04, 2024 03:44 PM Consult [facility]ALTH AIDE [facility] [employer] [place] [facility] [facility] Jan 09, 2024 05:34 PM Consult Order [facility] SKILLED HOME CARE Cons [employer] Maker's Choice [facility] Lab Results: +/- 30 days of the encounter This section includes the Chemistry and Hematology Lab Results on record with [place] for the patient. Radiology Reports and Pathology Reports are provided separately, in subsequent sections. Lab Results This section contains the Chemistry/Hematology Results that were resulted 30 days before or 30 daysafter the date of the Encounter. Date/Time Source Result Type Result - Unit Interpretation Reference Range Comment Jan 06, 2024 02:57 PM [facility] CBC Specimen Type: BLOOD No comment entered. Ordering Provider: SOTO WALTERS Report Released Date/Time: Dec 28, 2023 10:07 AM Reporting Lab: [facility] [address] [facility] [address] Performing Lab: [facility] [address] [facility] [facility] [address] WBC 6.55 10*3/uL 4.50-11.00 RBC 5.28 10*6/uL 4.23-5.66 HGB 14.2 g/dL 12.8-17 HCT 44.0 39.2-50.4 MCV 83.3 fL 82-99 MCHC 32.3 g/dL 30.8-35.1 PLT 217 10*3/uL 140-360 RDW-CV 15.0 12.0-16.0 MCH 26.9 pg 26.2-32.6 Jan 06, 2024 02:57 PM [facility] LIPID PANEL, NON FASTING Specimen Type: SERUM No comment entered. Ordering Provider: SOTO WALTERS Report Released Date/Time: Dec 28, 2023 10:07 AM Reporting Lab: [facility] [address] [facility] [address] Performing Lab: [facility] [address] [facility] [address] CHOLESTEROL 206 mg/dL H TRIGLYCERIDE 124 mg/dL 0-150 LDL calculated 139 mg/dL H 0-129 CHOL/HDL 4.9 HDL CHOLESTEROL 42 mg/dL 40-60 Jan 06, 2024 02:57 PM [facility] BASIC METABOLIC PANEL (non-fasting) Specimen Type: SERUM No comment entered. Ordering Provider: SOTO WALTERS Report Released Date/Time: Dec 28, 2023 10:07 AM Reporting Lab: [address] [address] Performing Lab: [address] [address] UREA NITROGEN 16 mg/dL 7-25 GLUCOSE 100 mg/dL 65-100 SODIUM 137 mmol/L 135-145 POTASSIUM 4.7 mmol/L 3.5-5.0 CHLORIDE 109 mmol/L 100-110 CO2 22 meq/L 20-30 CREATININE, Serum 1.41 mg/dL H 0.50-1.40 eGFR(CKD-EPI 2020) 49 mL/min L >60 Jan 06, 2024 02:57 PM [facility] LIVER FUNCTION Specimen Type: SERUM No comment entered. Ordering Provider: SOTO WALTERS Report Released Date/Time: Dec 28, 2023 10:07 AM Reporting Lab: [address] [address] Performing Lab: [address] [address] PROTEIN,TOTAL 6.5 g/dL 6.0-8.3 ALBUMIN 3.5 g/dL 3.5-5.0 ALKALINE PHOSPHATASE 46 U/L 40-150 AST 14 U/L 5-34 ALT 21 U/L BILIRUBIN, TOTAL 0.6 mg/dL 0.2-1.2 Social History: Smoking Status (Most current) and Tobacco Use (All prior to encounter date) This section includes the most current, and the historical, smoking and tobacco- related health factors from the [place] facility where the Encounter took place. Current Smoking Status This section includes the most current smoking, or tobacco-related health factor, from the [place] facility where the Encounter took place. Date/Time Current Smoking Status Comment Jenna ity Oct 29, 2022 03:30 PM VA-TOBACCO FORMER USER [facility] Tobacco Use History This section includes a history of the smoking, or tobacco-related health factors, that were collected on or before the date of the Encounter. The data comes from the [place] facility where the Encounter took place. Date/Time Smoking Status/Tobacco Use Comment F acility Oct 29, 2022 03:30 PM VA-TOBACCO QUIT 15 YRS OR MORE [facility] May 21, 2021 07:21 PM [facility]ACCO [facility] May 21, 2021 07:21 PM VA-TOBACCO QUIT 15 YRS OR MORE [facility] Radiology Reports: +/- 30 days of [...] the Encounter. The data comes from all [place] treatment facilities. Date/Time Radiology Report Provider Source Jan 06, 2024 03:[address] THORAX W/O CONT: THANG BEAL [id number] M Ex Date: JAN 06, 2024@15:07 Req Phys: YAZ WALTERS Loc: CWM/NO/PACT 7 (Req'g Loc) Img Loc: NHM/CT Service: Unknown [facility] , (Case [id number] COMPLETE) CT [place] W/O CONT (CT Detailed) CPT:69583 Reason for Study: follow up Clinical History: lung nodule Report Status: Verified Date Reported: JAN 06, 2024 Date Verified: JAN 06, 2024 Civil Engineering Teacher E-Sig:/ES/ELISABETH RDZ JR Report: Study: Noncontrast CT [...] Primary Interpreting Staff: ELISABETH RDZ JR, Radiologist (Civil Engineering Teacher) /ELISABETH PHILLIPS JR [facility] Encounter Notes: All associated encounter notes This section contains the clinical notes associated to the Encounter. Date/Time Encounter Note(s) Provider Source Jan 04, 2024 10:03 AM GERIATRIC MEDICINE NOTE: LOCAL TITLE: PERSONAL CARE SERVICES CASE MIX TOOL STANDARD TITLE: GERIATRIC MEDICINE NOTE DATE OF NOTE: JAN 04, 2024@10:03:54 ENTRY DATE: JAN 04, 2024@10:03:54 AUTHOR: PAOLONE,JEANA EXP COSIGNER: URGENCY: STATUS: COMPLETED HCBS Case Mix & Budget Tool (CASE MIX) Date Given: 01/04/2024 Clinician: Jeana Orta Location: [facility] : Thang Beal SSN: [id number] : Jan ([birth year]) Gender: Man Type of Evaluation: Initial Anticipated Start Date: 01/04/2024 Anticipated Length of Service: 12 months Case [...] Q9. COMMUNICATION 1 Usually Understood. Q10. TOILETING *2 Have accidents sometimes, but not more than once a week. Q11. MDS HC 2.0/CPS Cognitive Skill for Daily Decision Making 3 Severely Impaired - never/rarely made decisions. Q12. MDS 2.0/CPS: Short Term Memory (recall of what was learned or known) 1 Memory problem Q13. SPECIAL TREATMENTS 0 No [place] Q14. CLINICAL MONITORING 0 Less than once a day Q15. SPECIAL NURSING No Q16. NEUROMUSCULAR DIAGNOSIS Yes COMMENTS SKIPPED SOURCES 2. Informant, 3. Medical Record /nick/ JEANA ORTA [facility] PURCHASED [employer] SERVER Signed: 01/04/2024 10:04 JEANA ORTA [place] [facility]
--- OUTSIDE RECORDS SUMMARY | 2024-05-17 16:15 | XMS_ITS ---
Author Name [facility] [place] Address [address] [place] [address] Care Team Providers Care Switchman Supervisor Name Role Phone YAZ WALTERS Primary [facility] Insurance Providers: All historical and [...] BASIC INDIV IDUAL May 31, 2008 [id number] LIAN,THE [place] PATIENT CAREMARK-F EP BCBS PRESCRIPT ION FEP CAREM ARK May 31, 2010 [id number] LIAN,THE [place] PATIENT MEDICARE (WNR) MEDICARE (M) PART A Jan 29, 2005 PART A [id number] LIAN,THE [place] PATIENT MEDICARE (WNR) MEDICARE (M) PART A Jan 29, 2005 PART A [id number] LIAN,THE [place] PATIENT Selected Encounter This section includes the information on record at [place] for the Encounter. Date/Time Encounter Type Encounter Description Reason Provider Source Sep 07, 2023 03:53 PM PRO PHONE CALL 11-20 MIN TELEPHONE CASE MANAGEMENT ICD-10-CM Z71.9 Counseling, unspecified JUNIOR BAH Adán Encounter Template Text not used by [place] Assessments - Encounter Diagnoses This section includes the primary and secondary diagnoses documented for the Encounter. Date/Time Primary/Secondary Diagnosis Diagnosis Name Provider Source Sep 07, 2023 03:53 PM PRIMARY Counseling, unspecified JUNIOR BAH [facility] Plan of Treatment: Future Appointments (+ 6 months) and Future Tests (+/- 45 days) The Plan of Treatment section includes future care activities for the patient from all [place] [facility]. This section includes future appointments and future orders which are active, pending or scheduled. Future Appointments This section includes appointments that were scheduled to occur 6 months from the date of the Encounter, up to a maximum of 20 appointments. The data comes from all [place] treatment facilities. Appointment Date/Time Appointment Type Appointme nt Facility Name Dec 30, 2023 01:00 PM [facility] Jan 05, 2024 08:00 AM AM[facility] Jan 06, 2024 02:00 PM [facility] Jan 10, 2024 08:00 AM AMBULATORY MEDICINE [facility] Feb 01, 2024 09:00 AM [facility] Feb 14, 2024 02:30 PM AMBULATORY - PSYCHIATRY [facility] Social History: Smoking Status (Most current) and Tobacco Use (All prior to encounter date) This section includes the most current, and the historical, smoking and tobacco- related health factors from the [place] facility where the Encounter took place. Current Smoking Status This section includes the most current smoking, or tobacco-related health factor, from the [place] facility where the Encounter took place. Date/Time Current Smoking Status Comment Jenna denny Oct 29, 2022 03:30 PM VA-TOBACCO FORMER USER [facility] Tobacco Use History This section includes a history of the smoking, or tobacco-related health factors, that were collected on or before the date of the Encounter. The data comes from the [place] facility where the Encounter took place. Date/Time Smoking Status/Tobacco Use Comment F acility Oct 29, 2022 03:30 PM VA-TOBACCO QUIT 15 YRS OR MORE [facility] May 21, 2021 07:21 PM VA-TOBACCO FORMER USER [facility] WSN [facility] May 21, 2021 07:21 PM VA-TOBACCO QUIT 15 YRS OR MORE [facility] Encounter Notes: All associated encounter notes This section contains the clinical notes associated to the Encounter. Date/Time Encounter Note(s) Provider Source Sep 07, 2023 03:53 PM SOCIAL WORK NOTE: LOCAL TITLE: SOCIAL WORK NOTE STANDARD TITLE: SOCIAL WORK NOTE DATE OF NOTE: SEP 07, 2023@15:53 ENTRY DATE: SEP 07, 2023@15:53:23 AUTHOR: MONIKA BAH EXP COSIGNER: URGENCY: STATUS: COMPLETED Recreation Specialist reached out to check and spoke to [place] who rported he is fine he is still the same he is ok, we are packing we are getting ready to move into a condo . Talkative. Verbalized appreciation for checking in. Encouraged to contact fiction and nonfiction prose writer and [place] prn. 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
--- OUTSIDE RECORDS SUMMARY | 2024-05-17 16:15 | XMS_ITS ---
Author Name [place] Address [address] [place] [id number] Care Team Providers Care Park Interpreter Name Role Phone YAZ WALTERS Primary Care Provider [facility] Insurance Providers: All historical and current Section [...] BASIC INDIV IDUAL May 31, 2008 [id number] LIAN,THE [place] PATIENT CAREMARK-F EP BCBS PRESCRIPT ION FEP CAREM ARK May 31, 2010 [id number] [phone] LIAN,THE [place] PATIENT MEDICARE (WNR) MEDICARE (M) PART A Jan 29, 2005 PART A [id number] [phone] LIAN,THE [place] PATIENT MEDICARE (WNR) MEDICARE (M) PART A Jan 29, 2005 PART A [id number] LIAN,THE [place] PATIENT Selected Encounter This section includes the information on record at [place] for the Encounter. Date/Time Encounter Type Encounter Description Reason Pro vider Source Nov 01, 2023 02:30 PM Outpatient Encounter [facility] Encounter Template Text not used by [place] Plan of Treatment: Future Appointments (+ 6 months) and Future Tests (+/- 45 days) The Plan of Treatment section includes future care activities for the patient from all [place] [facility]. This section includes future appointments and future orders which are active, pending or scheduled. Future Appointments This section includes appointments that were scheduled to occur 6 months from the date of the Encounter, up to a maximum of 20 appointments. The data comes from all [place] treatment facilities. Appointment Date/Time Appointment Type Appointme nt Facility Name Dec 30, 2023 01:00 PM AMBULATORY [place] [facility] [place] [facility] Jan 05, 2024 08:00 AM AM[place]ULATORY [place]ICINE [place] [facility] Jan 06, 2024 02:00 PM AM[place]ORY [place] [facility] Jan 10, 2024 08:00 AM AMBUL[place]ORY - [place]ICINE [place] [facility] Feb 01, 2024 09:00 AM AMBULATORY - MEDICINE [facility] [place] [facility] Feb 14, 2024 02:30 PM AMBULATORY - [place]ATRY [place] [facility] [place] [facility] Mar 22, 2024 03:30 PM AMBULATORY - [place]ICINE [place] [facility] Mar 27, 2024 02:00 PM AMBULATORY - NONE [place] [facility] [place] [facility] Apr 19, 2024 02:00 PM AMBULATORY - NONE [place] [facility] [facility] Social History: Smoking Status (Most current) and Tobacco Use (All prior to encounter date) This section includes the most current, and the historical, smoking and tobacco- related health factors from the [place] facility where the Encounter took place. Current Smoking Status This section includes the most current smoking, or tobacco-related health factor, from the [place] facility where the Encounter took place. Date/Time Current Smoking Status Comment Jenna denny Oct 29, 2022 03:30 PM VA-TOBACCO FORMER USER [facility] Tobacco Use History This section includes a history of the smoking, or tobacco-related health factors, that were collected on or before the date of the Encounter. The data comes from the [place] facility where the Encounter took place. Date/Time Smoking Status/Tobacco Use Comment F acility Oct 29, 2022 03:30 PM VA-TOBACCO QUIT 15 YRS OR MORE [place] [facility] [place] [facility] May 21, 2021 07:21 PM VA-TOBACCO FORMER USER [place] [facility] [facility] May 21, 2021 07:21 PM VA-TOBACCO QUIT 15 YRS OR MORE [place] [facility] Encounter Notes: All associated encounter notes This section contains the clinical notes associated to the Encounter. Date/Time Encounter Note(s) Provider Source Nov 29, 2023 12:57 PM ADDENDUM: LOCAL TITLE: Addendum STANDARD TITLE: ADDENDUM DATE OF NOTE: NOV 29, 2023@12:57:08 ENTRY DATE: NOV 29, 2023@12:57:09 AUTHOR: RICHELLE WARD EXP COSIGNER: URGENCY: STATUS: COMPLETED Animal Assistant cancelled by patient 10/31 @ 2:30, and will contact to reschedule. Thank you. /radha WARD ADVANCED CORPORATE CONTROLLER Signed: 11/29/2023 12:57 Receipt Acknowledged By: 11/29/2023 16:00 /inck/ ALIZA CRUZ PSYCHIATRIST ====== --- Original Document --- 11/29/23 PSYCHIATRY NOTE: called to cancel due to vet refusing to come to visit. Will call to reschedule. AMSA---please cancel visit by patient, and call to reschedule within the next month. Thanks! /radha CRUZ PSYCHIATRIST Signed: 11/29/2023 11:49 Receipt Acknowledged By: 11/29/2023 12:57 /radha WARD ADVANCED CORPORATE CONTROLLER RICHELLE WARD [place] [facility] [facility] Nov 29, 2023 11:49 AM PSYCHIATRY NOTE: LOCAL TITLE: PSYCHIATRY NOTE STANDARD TITLE: PSYCHIATRY NOTE DATE OF NOTE: NOV 29, 2023@11:49 ENTRY DATE: NOV 29, 2023@11:49:08 AUTHOR: ALIZA CRUZ COSIGNER: URGENCY: STATUS: COMPLETED PSYCHIATRY NOTE Has ADDENDA called to cancel due to vet refusing to come to visit. Will call to reschedule. AMSA---please cancel visit by patient, and call to reschedule within the next month. Thanks! /radha CRUZ PSYCHIATRIST Signed: 11/29/2023 11:49 Receipt Acknowledged By: 11/29/2023 12:57 /radha WARD ADVANCED CORPORATE CONTROLLER 11/29/2023 ADDENDUM STATUS: COMPLETED Animal Assistant cancelled by patient 10/31 @ 2:30, and will contact [place] to reschedule. Thank you. /radha WRAD ADVANCED CORPORATE CONTROLLER Signed: 11/29/2023 12:57 Receipt Acknowledged By: 11/29/2023 16:00 /radha CRUZ PSYCHIATRIST 12/01/2023 ADDENDUM STATUS: COMPLETED [place] has been rescheduled to 12/29 @ 1p (next available afternoon appointment F2F). /radha WARD ADVANCED CORPORATE CONTROLLER Signed: 12/01/2023 15:50 ALIZA CRUZ [facility]
--- OUTSIDE RECORDS SUMMARY | 2024-05-17 16:15 | XMS_ITS ---
Author Name [facility] [place] Address [address] [place] [address] Care Team Providers Care Environmental Associate Name Role Phone YAZ WALTERS Primary Care Provider [facility] Insurance Providers: All historical and [...] BASIC INDIV IDUAL May 31, 2008 [id number] LIAN,THE [place] PATIENT CAREMARK-F EP BCBS PRESCRIPT ION FEP CAREM ARK May 31, 2010 [id number] [phone] LIAN,THE [place] PATIENT MEDICARE (WNR) MEDICARE (M) PART A Jan 29, 2005 PART A [id number] LIAN,THE [place] PATIENT MEDICARE (WNR) MEDICARE (M) PART A Jan 29, 2005 PART A [id number] LIAN,THE [place] PATIENT Selected Encounter This section includes the information on record at [place] for the Encounter. Date/Time Encounter Type Encounter Description Reason Pro vider Source May 20, 2023 12:57 PM Outpatient Encounter ADMIN PAT ACTIVTIES (VIRI) IHE Encounter Template Text not used by [place] Plan of Treatment: Future Appointments (+ 6 months) and Future Tests (+/- 45 days) The Plan of Treatment section includes future care activities for the patient from all [place] [facility]. This section includes future appointments and future orders which are active, pending or scheduled. Future Appointments This section includes appointments that were scheduled to occur 6 months from the date of the Encounter, up to a maximum of 20 appointments. The data comes from all [place] treatment facilities. Appointment Date/Time Appointment Type Appointme nt Facility Name Jun 28, 2023 02:30 PM [facility] Jun 28, 2023 03:30 PM AMBULATORY - MEDICINE [facility] [place] [facility] Jul 05, 2023 03:00 PM [facility] Jul 24, 2023 08:00 AM AMBULAT[facility] - [facility] Social History: Smoking Status (Most current) and Tobacco Use (All prior to encounter date) This section includes the most current, and the historical, smoking and tobacco- related health factors from the [place] facility where the Encounter took place. Current Smoking Status This section includes the most current smoking, or tobacco-related health factor, from the [place] facility where the Encounter took place. Date/Time Current Smoking Status Comment Facil ity Oct 29, 2022 03:30 PM [facility] Tobacco Use History This section includes a history of the smoking, or tobacco-related health factors, that were collected on or before the date of the Encounter. The data comes from the [place] facility where the Encounter took place. Date/Time Smoking Status/Tobacco Use Comment F acility Oct 29, 2022 03:30 PM VA-TOBACCO QUIT 15 YRS OR [facility] [place] [facility] May 21, 2021 07:21 PM [facility]AC[facility] May 21, 2021 07:21 PM VA-TOBACCO QUIT 15 YRS OR MORE [place] [facility] Encounter Notes: All associated encounter notes This section contains the clinical notes associated to the Encounter. Date/Time Encounter Note(s) Provider Source May 20, 2023 12:57 PM ADMINISTRATIVE NOTE: LOCAL TITLE: CCC: SCHEDULING ADMINISTRATION STANDARD TITLE: ADMINISTRATIVE NOTE DATE OF NOTE: MAY 20, 2023@12:57:10 ENTRY DATE: MAY 20, 2023@12:57:10 AUTHOR: YENNI GIBSON EXP COSIGNER: URGENCY: STATUS: COMPLETED Patient Demographics Patient Name: MARY BEAL Patient Primary Phone: [phone] Patient Primary Address: [address] [place] [address] [place] [address] Patient : 1940 Patient Age: 83 Call Back Number: [phone] Caller/Recipient Relation to Patient: Other If Other Describe Relation to Patient: Caller Name: Tiki Administrative Administrative Note Reason: Other Administrative Note Comments: 's Jada called to cancel 's PCP appointment for today. She states will not get out of bed. His MH provider is putting him on a new medication and she hopes it will work. She will call back to reschedule once he's feeling better. /nick/ YENNI GIBSON VISN1 [facility] AMSA Signed: 05/20/2023 12:57 Receipt Acknowledged By: 05/20/2023 14:10 /nick/ PEPITO [place] ADVANCED SUPERVISOR FINE GRADING 05/21/2023 10:03 /nick/ Juan Pastor, Health Forgeman Helper SOLAR PANEL INSTALLER,PRIMARY CARE YENNI GIBSON [place] [facility]
--- OUTSIDE RECORDS SUMMARY | 2024-05-17 16:15 | XMS_ITS | Encounter Summary ---
Author Name Department [place] Address [address] [place] [address] Care Team Providers Care Terrazzo Tile Maker Name Role Phone YAZ WALTERS Primary Care Provider [facility] Insurance Providers: All historical and current Section [...] BASIC INDIV IDUAL May 31, 2008 [id number] LIAN,THE [place] PATIENT CAREMARK-F EP BCBS PRESCRIPT ION FEP CAREM ARK May 31, 2010 [id number] LIAN,THE [place] PATIENT MEDICARE (WNR) MEDICARE (M) PART A Jan 29, 2005 PART A [id number] LIAN,THE [place] PATIENT MEDICARE (WNR) MEDICARE (M) PART A Jan 29, 2005 PART A [id number] LIAN,THE [place] PATIENT Selected Encounter This section includes the information on record at [place] for the Encounter. Date/Time Encounter Type Encounter Description Reason Provider Source Aug 19, 2023 01:03 PM Outpatient Encounter PRIMARY CARE/MEDICINE [facility] Encounter Template Text not used by [place] Plan of Treatment: Future Appointments (+ 6 months) and Future Tests (+/- 45 days) The Plan of Treatment section includes future care activities for the patient from all [place] [facility]. This section includes future appointments and future orders which are active, pending or scheduled. Future Appointments This section includes appointments that were scheduled to occur 6 months from the date of the Encounter, up to a maximum of 20 appointments. The data comes from all [place] treatment facilities. Appointment Date/Time Appointment Type Appointme nt Facility Name Dec 30, 2023 01:00 PM AMBUL[facility] [place] [facility] [place] [facility] Jan 05, 2024 08:00 AM AMBULATORY - MEDICINE [facility] [place] [facility] Jan 06, 2024 02:00 PM AMBULATORY - MEDICINE [facility] [place] [facility] Jan 10, 2024 08:00 AM AMBULATORY - MEDICINE [facility] [place] [facility] Feb 01, 2024 09:00 AM AMBULATORY - MEDICINE [facility] [place] [place] [facility] Feb 14, 2024 02:30 PM AMBULATORY - PSYCHIATRY [facility] Social History: Smoking Status (Most current) and Tobacco Use (All prior to encounter date) This section includes the most current, and the historical, smoking and tobacco- related health factors from the [place] facility where the Encounter took place. Current Smoking Status This section includes the most current smoking, or tobacco-related health factor, from the [place] facility where the Encounter took place. Date/Time Current Smoking Status Comment Facil ity Oct 29, 2022 03:30 PM VA-TOBACCO FORMER USER [facility] Tobacco Use History This section includes a history of the smoking, or tobacco-related health factors, that were collected on or before the date of the Encounter. The data comes from the [place] facility where the Encounter took place. Date/Time Smoking Status/Tobacco Use Comment F acility Oct 29, 2022 03:30 PM [place]-TOBACCO QUIT 15 YRS OR [facility] May 21, 2021 07:21 PM [facility] May 21, 2021 07:21 PM VA-TOBACCO QUIT 15 YRS OR MORE [facility] Encounter Notes: All associated encounter notes This section contains the clinical notes associated to the Encounter. Date/Time Encounter Note(s) Provider Source Aug 19, 2023 01:03 PM PRIMARY CARE SECALEX E MESSAGING: LOCAL TITLE: PRIMARY CARE SECURE MESSAGING STANDARD TITLE: PRIMARY CARE SECURE MESSAGING DATE OF NOTE: AUG 19, 2023@13:03 ENTRY DATE: AUG 19, 2023@14:03:44 AUTHOR: FAY LI EXP COSIGNER: URGENCY: STATUS: COMPLETED PRIMARY CARE SECURE MESSAGING Has ADDENDA ------Original Message -------- Sent: 08/19/2023 02:03 PM ET From: FAY LI To: MARY BEAL Subject: General:General Inquiry please let us know if you have received the FLU,RSV or COVID vaccines outside the [place], please provide dates and locations if you can. Please let us know if you do not wish to receive any of these vaccines as well. Thank you for your service /nick/ FAY LI LPN Signed: 08/19/2023 14:03 08/23/2023 ADDENDUM STATUS: COMPLETED Influenza Immunization: The patient has received the seasonal influenza vaccine for the current season at another location. Documented: INFLUENZA, UNSPECIFIED FORMULATION Historical Date Administered: Mar 17, 2023 Series: Booster Outside Location: Outside Healthcare Provider Information Source: FROM OTHER PROVIDER /nick/ FAY LI LPN Signed: 08/23/2023 08:14 FAY LI [facility]
--- OUTSIDE RECORDS SUMMARY | 2024-05-17 16:15 | XMS_ITS | Encounter Summary ---
Author Name [facility] [place] Organization [facility] [place] Address [address] [place] [address] Care Team Providers Care Maintenance Planning Clerk Name Role Phone YAZ WALTERS Primary Care Provider Unavailjason banner Insurance Providers: All historical and current Section [...] BASIC INDIV IDUAL May 31, 2008 [id number] LIAN,THE [place] PATIENT CAREMARK-F EP BCBS PRESCRIPT ION FEP CAREM ARK May 31, 2010 [id number] LIAN,THE [place] PATIENT MEDICARE (WNR) MEDICARE (M) PART A Jan 29, 2005 PART A [id number] [phone] LIAN,THE [place] PATIENT MEDICARE (WNR) MEDICARE (M) PART A Jan 29, 2005 PART A [id number] LIAN,THE [place] PATIENT Selected Encounter This section includes the information on record at [place] for the Encounter. Date/Time Encounter Type Encounter Description Reason Pro vider Source Dec 30, 2023 02:06 PM Outpatient Encounter PRIMARY CARE/MEDICINE IHE Encounter Template Text not used by CT Plan of Treatment: Future Appointments (+ 6 months) and Future Tests (+/- 45 days) The Plan of Treatment section includes future care activities for the patient [facility] This section includes future appointments and future orders which are active, pending or scheduled. Future Appointments This section includes appointments that were scheduled to occur 6 months from the date of the Encounter, up to a maximum of 20 appointments. The data comes from all [facility]. Appointment Date/Time Appointment Type Appointme nt Facility Name Jan 05, 2024 08:00 AM AMBULATORY - MEDICINE [facility] [place] [facility] Jan 06, 2024 02:00 PM AMBULATORY - MEDICINE [facility] [place] [facility] Jan 10, 2024 08:00 AM AMBULATORY - MEDICINE [facility] [place] [facility] Feb 01, 2024 09:00 AM AMBULATORY - MEDICINE [facility] [place] [facility] Feb 14, 2024 02:30 PM AMBULATORY - PSYCHIATRY [facility] [place] [facility] Mar 22, 2024 03:30 PM AMBULATORY - MEDICINE [facility] [place] [facility] Mar 27, 2024 02:00 PM AMBULATORY - NONE [facility] [place] [facility] Apr 19, 2024 02:00 PM AMBULATORY - NONE [facility] [place] [facility] Jun 12, 2024 03:00 PM AMBULATORY - PSYCHIATRY [facility] [place] [facility] Jun 22, 2024 03:00 PM AMBULATORY - MEDICINE [facility] [place] [facility] Jun 28, 2024 02:00 PM AMBULATORY - NONE [facility] [place] [facility] Active, Pending, and Scheduled Orders This section includes a listing of several types of active, pending, and scheduled orders, including clinic medications orders, diagnostic test orders, procedure orders and consult orders; where the start date of the order is 45 days before the date of the Encounter or 45 days after the date of theEncounter. The data comes from all [facility]. Test Date/Time Test Type Test Details Facility Name Dec 31, 2023 03:28 PM Consult Order COMMUNITY CARE-NEUROLOGY [employer] [facility] [place] [facility] Jan 04, 2024 03:44 PM Consult Order COMMUNITY CARE-GEC NON-SKILLED HOME HEALTH AIDE [employer] [facility] [place] [facility] Jan 09, 2024 05:34 PM Consult Order [facility] Lab Results: +/- 30 days of the encounter This section includes the Chemistry and Hematology Lab Results on record with CT for the patient. Radiology Reports and Pathology Reports are provided separately, in subsequent sections. Lab Results This section contains the Chemistry/Hematology Results that were resulted 30 days before or 30 daysafter the date of the Encounter. Date/Time Source Result Type Result - Unit Interpretation Reference Range Comment Jan 06, 2024 02:57 PM [facility] BASIC METABOLIC PANEL (non-fasting) Specimen Type: SERUM No comment entered. Ordering Provider: SOTO WALTERS Report Released Date/Time: Dec 28, 2023 10:07 AM Reporting Lab: [facility] [address] [facility] [address] Performing Lab: [facility] [address] [facility] [address] UREA NITROGEN 16 mg/dL 7-25 GLUCOSE 100 mg/dL 65-100 SODIUM 137 mmol/L 135-145 POTASSIUM 4.7 mmol/L 3.5-5.0 CHLORIDE 109 mmol/L 100-110 CO2 22 meq/L 20-30 CREATININE, Serum 1.41 mg/dL H 0.50-1.40 eGFR(CKD-EPI 2020) 49 mL/min L >60 Jan 06, 2024 02:57 PM [facility] LIPID PANEL, NON FASTING Specimen Type: SERUM No comment entered. Ordering Provider: SOTO WALTERS Report Released Date/Time: Dec 28, 2023 10:07 AM Reporting Lab: [facility] [address] [facility] [address] Performing Lab: [address] [address] CHOLESTEROL 206 mg/dL H TRIGLYCERIDE 124 mg/dL 0-150 LDL calculated 139 mg/dL H 0-129 CHOL/HDL 4.9 HDL CHOLESTEROL 42 mg/dL 40-60 Jan 06, 2024 02:57 PM [facility] CBC Specimen Type: BLOOD No comment entered. Ordering Provider: SOTO WALTERS Report Released Date/Time: Dec 28, 2023 10:07 AM Reporting Lab: [facility] [address] [facility] [address] Performing Lab: [address] [address] WBC 6.55 10*3/uL 4.50-11.00 RBC 5.28 10*6/uL 4.23-5.66 HGB 14.2 g/dL 12.8-17 HCT 44.0 39.2-50.4 MCV 83.3 fL 82-99 MCHC 32.3 g/dL 30.8-35.1 PLT 217 10*3/uL 140-360 RDW-CV 15.0 12.0-16.0 MCH 26.9 pg 26.2-32.6 Jan 06, 2024 02:57 PM [facility] LIVER FUNCTION Specimen Type: SERUM No comment entered. Ordering Provider: SOTO WALTERS Report Released Date/Time: Dec 28, 2023 10:07 AM Reporting Lab: [facility] [address] [facility] [address] Performing Lab: [address] [address] PROTEIN,TOTAL 6.5 g/dL 6.0-8.3 ALBUMIN 3.5 g/dL 3.5-5.0 ALKALINE PHOSPHATASE 46 U/L 40-150 AST 14 U/L 5-34 ALT 21 U/L BILIRUBIN, TOTAL 0.6 mg/dL 0.2-1.2 Social History: Smoking Status (Most current) and Tobacco Use (All prior to encounter date) This section includes the most current, and the historical, smoking and tobacco- related health factors from the [place] facility where the Encounter took place. Current Smoking Status This section includes the most current smoking, or tobacco-related health factor, from the [place] facility where the Encounter took place. Date/Time Current Smoking Status Comment Facil ity Oct 29, 2022 03:30 PM VA-TOBACCO FORMER USER [facility] Tobacco Use History This section includes a history of the smoking, or tobacco-related health factors, that were collected on or before the date of the Encounter. The data comes from the [place] facility where the Encounter took place. Date/Time Smoking Status/Tobacco Use Comment F acility Oct 29, 2022 03:30 PM VA-TOBACCO QUIT [address] [facility] [place] [facility] May 21, 2021 07:21 PM VA-TOBACCO FORMER USER CT [facility] [place] [facility] May 21, 2021 07:21 PM VA-TOBACCO QUIT 15 YRS OR MORE [facility] Radiology Reports: +/- 30 days of the [...] the Encounter. The data comes from all CT treatment facilities. Date/Time Radiology Report Provider Source Jan 06, 2024 03:[address] THORAX W/O CONT: MARY BEAL EDWAR [id number] -[id number] M Ex Date: JAN 06, 2024@15:07 Req Phys: YAZ WALTERS Loc: CWM/NO/PACT 7 (Req'g Loc) Img Loc: NHM/[place] Service: [facility] , (Case [id number] COMPLETE) CT [facility] W/O CONT (CT Detailed) CPT:32451 Reason for Study: follow up Clinical History: lung nodule Report Status: Verified Date Reported: JAN 06, 2024 Date Verified: JAN 06, 2024 Placement Interviewer E-Sig:/ES/ELISABETH RDZ JR Report: Study: Noncontrast CT [...] Primary Interpreting Staff: ELISABETH RDZ JR, Radiologist (Placement Interviewer) /ELISABETH PHILLIPS JR [facility] Encounter Notes: All associated encounter notes This section contains the clinical notes associated to the Encounter. Date/Time Encounter Note(s) Provider Source Dec 30, 2023 02:06 PM NURSING NOTE: LOCAL TITLE: NURSING/TELEPHONE STANDARD TITLE: NURSING NOTE DATE OF NOTE: DEC 30, 2023@14:06 ENTRY DATE: DEC 30, 2023@14:06:16 AUTHOR: JUAN DOMINGUEZ COSIGNER: URGENCY: STATUS: COMPLETED vet was called, HT spoke with vet inform he has an appt with PCP on 01-06-2024@ 1400,also labs have been orderd,vet acknowledge these instructions. /nick/ Juan Dominguez, Health Thermocouple Tester BRICK MACHINE OPERATOR,PRIMARY CARE Signed: 12/30/2023 14:09 JUAN DOMINGUEZ [facility]
--- OUTSIDE RECORDS SUMMARY | 2024-05-17 16:15 | XMS_ITS | Encounter Summary ---
Author Name [facility] [place] [facility] [place] Organization [facility] [place] Address [address] [place] [address] Care Team Providers Care Recreation Leader Name Role Phone YAZ WALTERS Primary Care Provider [facility] Insurance Providers: All historical and [...] BASIC INDIV IDUAL May 31, 2008 [id number] LIAN,THE [place] PATIENT CAREMARK-F EP BCBS PRESCRIPT ION FEP CAREM ARK May 31, 2010 [id number] LIAN,THE [place] PATIENT MEDICARE (WNR) MEDICARE (M) PART A Jan 29, 2005 PART A [id number] LIAN,THE [place] PATIENT MEDICARE (WNR) MEDICARE (M) PART A Jan 29, 2005 PART A [id number] LIAN,THE [place] PATIENT Selected Encounter This section includes the information on record at [place] for the Encounter. Date/Time Encounter Type Encounter Description Reason Pro vider Source Jun 22, 2023 02:48 PM Outpatient Encounter TELEPHONE PRIMARY CARE IHE Encounter Template Text not used by [place] Plan of Treatment: Future Appointments (+ 6 months) and Future Tests (+/- 45 days) The Plan of Treatment section includes future care activities for the patient from all [place] [facility]. This section includes future appointments and future orders which are active, pending or scheduled. Future Appointments This section includes appointments that were scheduled to occur 6 months from the date of the Encounter, up to a maximum of 20 appointments. The data comes from all [place] treatment facilities. Appointment Date/Time Appointment Type Appointme nt Facility Name Jun 28, 2023 02:30 PM AMBULATORY - NEUROLOGY [facility] Jun 28, 2023 03:30 PM AMBULATORY - MEDICINE [facility] Jul 05, 2023 03:00 PM AMBULATORY - PSYCHIATRY [facility] Jul 24, 2023 08:00 AM AMBULATORY - MEDICINE [facility] Lab Results: +/- 30 days of the encounter This section includes the Chemistry and Hematology Lab Results on record with [place] for the patient. Radiology Reports and Pathology Reports are provided separately, in subsequent sections. Lab Results This section contains the Chemistry/Hematology Results that were resulted 30 days before or 30 daysafter the date of the Encounter. Date/Time Source Result Type Result - Unit Interpretation Reference Range Comment Jun 28, 2023 03:11 PM [facility] VITAMIN B-1 (THIAMINE)-(QU) Specimen Type: PLASMA Comment: Vitamin supplementation within 24 hours prior to blood draw may affect the accuracy of the results. This test was developed and its analytical performance characteristics have been determined by [place] It has not been cleared or approved by the U.S. Food and Drug Administration. This assay has been validated pursuant to the CLIA regulations and is used for clinical purposes. Test Performed by [facility] [place], [address] [place] [address] Zach Tyler M.D., Ph.D., Director of Laboratories , CLIA [id number] TEST PERFORMED AT: , Ordering Provider: SREE FELIX Report Released Date/Time: Jun 28, 2023 03:10 PM Reporting Lab: [facility] [place] [facility] [address] [facility] [address] Performing Lab: [facility] [place] [facility] [address] [address] VITAMIN B-1 (THIAMINE)-(Q U) 17 nmol/L 8-30 Jun 28, 2023 03:11 PM [facility] IRON & TIBC PANEL Specimen Type: SERUM No comment entered. Ordering Provider: SREE FELIX Report Released Date/Time: Jun 28, 2023 03:10 PM Reporting Lab: [facility] [address] [facility] [address] Performing Lab: [facility] [facility] SSDUSETS [address] [address] TIBC 310 ug/dL 204-475 IRON 120 ug/dL 40-160 Transferrin Saturation 38.7 20.0-50.0 Jun 28, 2023 03:11 PM [facility] VITAMIN B12 Specimen Type: SERUM No comment entered. Ordering Provider: SREE FELIX Report Released Date/Time: Jun 28, 2023 03:10 PM Reporting Lab: [facility] [address] [facility] [address] Performing Lab: [facility] SSDUSETS [address] [address] VITAMIN B12 854 pg/mL 200-900 Jun 28, 2023 02:21 PM [facility] THYROID T4 FREE(FT4) Specimen Type: SERUM No comment entered. Ordering Provider: YAZ WALTERS Report Released Date/Time: Jun 17, 2023 10:24 AM Reporting Lab: [facility] [address] [facility] [address] Performing Lab: [facility]TR[facility] [address] [facility] [address] THYROID T4 FREE(FT4) 0.71 ng/dL 0.6-1.6 Jun 28, 2023 02:21 PM [facility] CBC Specimen Type: BLOOD No comment entered. Ordering Provider: YAZ WALTERS Report Released Date/Time: Jun 17, 2023 10:24 AM Reporting Lab: [facility] [address] [facility] [address] Performing Lab: [address] [address] WBC 6.39 10*3/uL 4.50-11.00 RBC 5.16 10*6/uL 4.23-5.66 HGB 13.8 g/dL 12.8-17 HCT 43.5 39.2-50.4 MCV 84.3 fL 82-99 MCHC 31.7 g/dL 30.8-35.1 PLT 216 10*3/uL 140-360 RDW-CV 14.7 12.0-16.0 MCH 26.7 pg 26.2-32.6 Jun 28, 2023 02:21 PM [facility] TSH Specimen Type: SERUM No comment entered. Ordering Provider: YAZ WALTERS Report Released Date/Time: Jun 17, 2023 10:24 AM Reporting Lab: [address] [address] Performing Lab: [address] [address] TSH 4.20 u[IU]/mL 0.35-5.00 Jun 28, 2023 02:21 PM [facility] BASIC METABOLIC PANEL (fasting) Specimen Type: SERUM No comment entered. Ordering Provider: YAZ WALTERS Report Released Date/Time: Jun 17, 2023 10:24 AM Reporting Lab: [address] [address] Performing Lab: [address] [address] UREA NITROGEN 14 mg/dL 7-25 GLUCOSE 110 mg/dL H 65-100 SODIUM 139 mmol/L 135-145 POTASSIUM 4.5 mmol/L 3.5-5.0 CHLORIDE 105 mmol/L 100-110 CO2 26 meq/L 20-30 CREATININE, Serum 1.45 mg/dL H 0.50-1.40 eGFR(CKD-EPI 2020) 48 mL/min L >60 Jun 28, 2023 02:21 PM [facility] HEMOGLOBIN A1C PANEL Specimen Type: BLOOD [...] Jun 17, 2023 10:24 AM Reporting Lab: [address] [address] Performing Lab: [address] [address] HEMOGLOBIN A1C 5.9 H 4.0-5.6 Jun 28, 2023 02:21 PM [facility] LIPID PANEL FASTING Specimen Type: SERUM No comment entered. Ordering Provider: YAZ WALTERS Report Released Date/Time: Jun 17, 2023 10:24 AM Reporting Lab: [address] [address] Performing Lab: [address] [address] CHOLESTEROL 209 mg/dL H TRIGLYCERIDE 113 mg/dL 0-150 LDL calculated 139 mg/dL H 0-129 CHOL/HDL 4.4 HDL CHOLESTEROL 47 mg/dL 40-60 Jun 28, 2023 02:21 PM [facility] LIVER FUNCTION Specimen Type: SERUM No comment entered. Ordering Provider: YAZ WALTERS Report Released Date/Time: Jun 17, 2023 10:24 AM Reporting Lab: [address] [address] Performing Lab: [address] [address] PROTEIN,TOTAL 6.9 g/dL 6.0-8.3 ALBUMIN 3.8 g/dL 3.5-5.0 ALKALINE PHOSPHATASE 46 U/L 40-150 AST 20 U/L 5-34 ALT 30 U/L BILIRUBIN, TOTAL 0.7 mg/dL 0.2-1.2 Social History: Smoking Status (Most current) and Tobacco Use (All prior to encounter date) This section includes the most current, and the historical, smoking and tobacco- related health factors from the [place] facility where the Encounter took place. Current Smoking Status This section includes the most current smoking, or tobacco-related health factor, from the [place] facility where the Encounter took place. Date/Time Current Smoking Status Comment Facil ity Oct 29, 2022 03:30 PM VA-TOBACCO [facility] Tobacco Use History This section includes a history of the smoking, or tobacco-related health factors, that were collected on or before the date of the Encounter. The data comes from the [place] facility where the Encounter took place. Date/Time Smoking Status/Tobacco Use Comment F acility Oct 29, 2022 03:30 PM VA-TOBACCO QUIT 15 YRS OR MORE [place] [facility] [place] [facility] May 21, 2021 07:21 PM VA-TOBACCO FORMER USER [place] [facility] [place] [facility] May 21, 2021 07:21 PM VA-TOBACCO QUIT 15 YRS OR MORE [place] [facility] [facility] [place] [facility] Encounter Notes: All associated encounter notes This section contains the clinical notes associated to the Encounter. Date/Time Encounter Note(s) Provider Source Jun 22, 2023 02:48 PM NURSING NOTE: LOCAL TITLE: NURSING/TELEPHONE STANDARD TITLE: NURSING NOTE DATE OF NOTE: JUN 22, 2023@14:48 ENTRY DATE: JUN 22, 2023@14:48:49 AUTHOR: JUAN DOMINGUEZ EXP COSIGNER: URGENCY: STATUS: COMPLETED vet was called, HT spoke with vet inform he 06-28-2023@1530 has an appt with PCP on,also labs have been orderd,vet acknowledge these instructions. /nick/ Juan Dominguez, Health Poultry And Fish Butcher SALES MANAGER [place],PRIMARY CARE Signed: 06/22/2023 14:52 ANGELICA,JUAN [facility] [place] [facility]
--- OUTSIDE RECORDS SUMMARY | 2024-05-17 16:16 | XMS_ITS ---
Author Name [facility] Organization [facility] [place] Address [address] [place] [address] Care Team Providers Care Associate Publisher Name Role Phone YAZ WALTERS Primary [facility] Provider [facility] Insurance Providers: All historical and current [...] BASIC INDIV IDUAL May 31, 2008 [id number] LIAN,THE [place] PATIENT CAREMARK-F EP BCBS PRESCRIPT ION FEP CAREM ARK May 31, 2010 [id number] [phone] LIAN,THE [place] PATIENT MEDICARE (WNR) MEDICARE (M) PART A Jan 29, 2005 PART A [id number] LIAN,THE [place] PATIENT MEDICARE (WNR) MEDICARE (M) PART A Jan 29, 2005 PART A [id number] [phone] LIAN,THE [place] PATIENT Selected Encounter This section includes the information on record at [place] for the Encounter. Date/Time Encounter Type Encounter Description Reason Pro vider Source Mar 20, 2024 05:02 PM Outpatient Encounter ADMIN PAT ACTIVTIES (MASNONCT) IHE Encounter Template Text not used by [place] Plan of Treatment: Future Appointments (+ 6 months) and Future Tests (+/- 45 days) The Plan of Treatment section includes future care activities for the patient from all [place] treatmentfacilities. This section includes future appointments and future orders which are active, pending or scheduled. Future Appointments This section includes appointments that were scheduled to occur 6 months from the date of the Encounter, up to a maximum of 20 appointments. The data comes from all [place] treatment facilities. Appointment Date/Time Appointment Type Appointme nt Facility Name Mar 22, 2024 03:30 PM AMBULATORY - MEDICINE [facility] [place] [facility] Mar 27, 2024 02:00 PM AMBULATORY - NONE [facility] [place] [facility] Apr 19, 2024 02:00 PM AMBULATORY - NONE [facility] [place] [facility] Jun 12, 2024 03:00 PM AMBULATORY - PSYCHIATRY [facility] [place] [facility] Jun 22, 2024 03:00 PM AMBULATORY - MEDICINE [facility] [place] [facility] Jun 28, 2024 02:00 PM AMBULATORY - NONE [facility] [place] [facility] Jul 03, 2024 02:00 PM AMBULATORY - MEDICINE [facility] [place] [facility] Lab Results: +/- 30 days of the encounter This section includes the Chemistry and Hematology Lab Results on record with [place] for the patient. Radiology Reports and Pathology Reports are provided separately, in subsequent sections. Lab Results This section contains the Chemistry/Hematology Results that were resulted 30 days before or 30 daysafter the date of the Encounter. Date/Time Source Result Type Result - Unit Interpretation Reference Range Comment Mar 22, 2024 04:15 PM [facility] [place] [facility] CREATININE (eGFR 2020) Specimen Type: SERUM No comment entered. Ordering Provider: SOTO WALTERS Report Released Date/Time: Mar 22, 2024 04:00 PM Reporting Lab: [facility] [place] [address] [address] Performing Lab: [place] [address] [address] CREATININE, Serum 1.49 mg/dL H 0.50-1.40 eGFR(CKD-EPI 2020) 46 mL/min L >60 Mar 22, 2024 04:15 PM [facility] LIVER FUNCTION Specimen Type: SERUM No comment entered. Ordering Provider: SOTO WALTERS J Report Released Date/Time: Mar 22, 2024 04:00 PM Reporting Lab: [address] [address] Performing Lab: [address] [address] PROTEIN,TOTAL 6.9 g/dL 6.0-8.3 ALBUMIN 4.0 g/dL 3.5-5.0 ALKALINE PHOSPHATASE 49 U/L 40-150 AST 16 U/L 5-34 ALT 25 U/L BILIRUBIN, TOTAL 0.8 mg/dL 0.2-1.2 Mar 22, 2024 04:15 PM [facility] CBC Specimen Type: BLOOD No comment entered. Ordering Provider: SOTO WALTERS Report Released Date/Time: Mar 22, 2024 04:00 PM Reporting Lab: [address] [address] Performing Lab: [address] [address] WBC 7.17 10*3/uL 4.50-11.00 RBC 5.39 10*6/uL 4.23-5.66 HGB 14.5 g/dL 12.8-17 HCT 44.1 39.2-50.4 MCV 81.8 fL L 82-99 MCHC 32.9 g/dL 30.8-35.1 PLT 223 10*3/uL 140-360 RDW-CV 14.4 12.0-16.0 MCH 26.9 pg 26.2-32.6 Mar 22, 2024 04:15 PM [facility] PT & INR (COUMADIN) Specimen Type: PLASMA No comment entered. Ordering Provider: SOTO WALTERS J Report Released Date/Time: Mar 22, 2024 04:00 PM Reporting Lab: [facility] [address] [facility] [address] Performing Lab: [facility] [address] [facility] [address] INR 1.2 PROTIME 13.0 s 10.0-13.1 Social History: Smoking Status (Most current) and Tobacco Use (All prior to encounter date) This section includes the most current, and the historical, smoking and tobacco- related health factors from the [place] facility where the Encounter took place. Current Smoking Status This section includes the most current smoking, or tobacco-related health factor, from the [place] facility where the Encounter took place. Date/Time Current Smoking Status Comment Facil ity Jan 06, 2024 02:00 PM VA-TOBACCO QUIT 15 YRS OR MORE [facility] Tobacco Use History This section includes a history of the smoking, or tobacco-related health factors, that were collected on or before the date of the Encounter. The data comes from the [place] facility where the Encounter took place. Date/Time Smoking Status/Tobacco Use Comment F acility Jan 06, 2024 02:00 PM VA-TOBACCO QUIT 15 YRS OR MORE [facility] [place] [facility] Oct 29, 2022 03:30 PM VA-TOBACCO FORMER USER [facility] [place] [facility] Oct 29, 2022 03:30 PM VA-TOBACCO QUIT 15 YRS OR MORE [facility] [place] [facility] May 21, 2021 07:21 PM VA-TOBACCO FORMER USER [facility] [place] [facility] May 21, 2021 07:21 PM VA-TOBACCO QUIT 15 YRS OR MORE [facility] Radiology Reports: +/- 30 days of [...] the Encounter. The data comes from all [place] treatment facilities. Date/Time Radiology Report Provider Source Mar 27, 2024 02:07 PM DUPLEX SCAN:EXTREMITY VEINS, COMPLETE BILATERAL: MARY BEAL [id number] -1940 M Ex Date: MAR 27, 2024@14:07 Req Phys: YAZ WALTERS Loc: CWM/NO/PACT 7 (Req'g Loc) Img Loc: ULTRASOUND Service: Unknown [facility] [place] [address] (Case [id number] COMPLETE) DUPLEX SCAN:EXTREMITY VEINS, COMP(US Detailed) CPT:00206 Reason for Study: recent dx of PE Clinical History: Seeking bilat lower extremity Report Status: Verified Date Reported: MAR 28, 2024 Date Verified: MAR 28, 2024 Conference Manager E-Sig: Report: DUPLEX SCAN:EXTREMITY VEINS, COMPLETE BILATERAL HISTORY: recent dx of PE COMPARISON: None TECHNIQUE: Ultrasound of the bilateral lower extremity veins was performed at the local [facility] facility. Multiple transverse and longitudinal grayscale, color Doppler and spectral Doppler images were obtained. Vessel patency was determined using a combination of compressibility, waveform analysis and augmentation where technically feasible. 46 images were received by the [place] National Teleradiology Program (NTP) for interpretation. FINDINGS: RIGHT LOWER EXTREMITY: Right Common Femoral Vein: Patent. Right Great Saphenous Vein (at its junction with the common femoral vein): Patent. Right Proximal Femoral Vein: Patent. Right Mid Femoral Vein: Patent. Right Distal Femoral Vein: Patent. Right Popliteal Vein: Patent. LEFT LOWER EXTREMITY: Left Common Femoral Vein: Patent. Left Great Saphenous Vein (at its junction with the common femoral vein): Patent. Left Proximal Femoral Vein: Patent. Left Mid Femoral Vein: Patent. Left Distal Femoral Vein: Patent. Left Popliteal Vein: Patent. Impression: NEGATIVE EXAMINATION FOR THROMBOSIS IN THE BILATERAL LOWER EXTREMITY VEINS LISTED ABOVE. READING PHYSICIAN: Maynor Ghotra M.D. -[id number] 03/28/2024 0:07 MDT [facility] National Teleradiology Program [phone] (For Medical Practitioner Use Only) Attention Patients / Veterans: If you have questions or concerns about these test results, please contact your ordering provider or primary care team. Primary Diagnostic Code: NO ALERT REQUIRED Primary Interpreting Staff: RADIOLOGY,OUTSIDE SERVICE, Staff Physician / RADIOLOGY,OUTSIDE SERVICE [facility] [place] [facility] Encounter Notes: All associated encounter notes This section contains the clinical notes associated to the Encounter. Date/Time Encounter Note(s) Provider Source Mar 21, 2024 07:34 AM ADDENDUM: LOCAL TITLE: Addendum STANDARD TITLE: ADDENDUM DATE OF NOTE: MAR 21, 2024@07:34:27 ENTRY DATE: MAR 21, 2024@07:34:28 AUTHOR: ANJELICA BLAKE COSIGNER: URGENCY: STATUS: COMPLETED Alert to [facility] for assistance with scheduling /es/ Anjelica Blake MSN RN CNL Primary Care RN Signed: 03/21/2024 07:34 Receipt Acknowledged By: 03/21/2024 08:47 /es/ [employer] [place] [employer] LAMINATING MACHINE OPERATOR === --- Original Document --- 03/20/24 CCC: SCHEDULING ADMINISTRATION: Patient Demographics Patient Name: MARY BEAL Patient Primary Phone: [phone] Patient Primary [address]: [address] [place] [id number] Patient : 1940 Patient Age: 84 Call Back Number: [phone] Caller/Recipient Relation to Patient: Other If Other Describe Relation to Patient: SPOUSE Caller Name: Jada Scheduling Patient Expects Callback: Yes Administrative Administrative Note Reason: Returned Call Administrative Note Comments: 's Jada returned call regarding 's recent ER visit to [facility] in [place] (main line:[phone], ER line: [phone]). Jada stated that it was recommended to see [facility]. Jada stated that is barely eating, only takes a few bites of solid food then states he is not hungry(prefers ice cream). Jada also stated that there are other issues as well she would like to discuss with PCP. Please call back at [phone], Jada stated that the appointment needs to be in the afternoon if possible as will not wake up in time for a morning appointment. IMPORTANT: This note was created by [place] [facility] Contact Center staff. Please do not alert the staff member by adding them as a signer for future communications. Alerts are not monitored by this user. /nick/ SOCO ARGUETA Signed: 03/20/2024 17:02 Receipt Acknowledged By: * AWAITING SIGNATURE * JUAN DOMINGUEZ 03/21/2024 07:34 /nick/ Anjelica Blake MSN RN CNL Primary Care RN 03/21/2024 ADDENDUM STATUS: UNSIGNED You may not VIEW this UNSIGNED Addendum. ANJELICA BLAKE [facility] [place] [facility] Mar 20, 2024 05:02 PM ADMINISTRATIVE NOTE: LOCAL TITLE: CCC: SCHEDULING ADMINISTRATION STANDARD TITLE: ADMINISTRATIVE NOTE DATE OF NOTE: MAR 20, 2024@17:02:48 ENTRY DATE: MAR 20, 2024@17:02:49 AUTHOR: SOCO CHAN EXP COSIGNER: URGENCY: STATUS: COMPLETED CCC: SCHEDULING ADMINISTRATION Has ADDENDA Patient Demographics Patient Name: MARY BEAL Patient Primary Phone: [phone] Patient Primary Address: [address] [place], [place] [id number] Patient : 1940 Patient Age: 84 Call Back Number: [phone] Caller/Recipient Relation to Patient: Other If Other Describe Relation to Patient: SPOUSE Caller Name: Jada Scheduling Patient Expects Callback: Yes Administrative Administrative Note Reason: Returned Call Administrative Note Comments: 's Jada returned call regarding 's recent ER visit to [facility] in [place] (main line:[phone], ER line: [phone]). Jada stated that it was recommended to see [facility]. Jada stated that is barely eating, only takes a few bites of solid food then states he is not hungry(prefers ice cream). Jada also stated that there are other issues as well she would like to discuss with PCP. Please call back at [phone], Jada stated that the appointment needs to be in the afternoon if possible as will not wake up in time for a morning appointment. IMPORTANT: This note was created by [place] [facility] Clinical Contact Center staff. Please do not alert the staff member by adding them as a signer for future communications. Alerts are not monitored by this user. /nick/ SOCO ARGUETA Signed: 03/20/2024 17:02 Receipt Acknowledged By: 03/21/2024 10:32 /es/ Juan Dominguez, Health Powerhouse Mechanic Apprentice BLOCKMASON,PRIMARY CARE 03/21/2024 07:34 /nick/ Anjelica Blake MSN RN CNL Primary Care RN 03/21/2024 ADDENDUM STATUS: COMPLETED Alert to [facility] for assistance with scheduling /nick/ Anjelica Blake MSN RN CNL Primary Care RN Signed: 03/21/2024 07:34 Receipt Acknowledged By: 03/21/2024 08:47 /nick/ [employer] [place] [employer] LAMINATING MACHINE OPERATOR 03/21/2024 ADDENDUM STATUS: COMPLETED spoke to and scheduled appointment. /nick/ [employer] [place] [employer] LAMINATING MACHINE OPERATOR Signed: 03/21/2024 08:48 SOCO CHAN [facility]
--- OUTSIDE RECORDS SUMMARY | 2024-05-17 16:16 | XMS_ITS | Encounter Summary ---
Author Name [facility] [place] [facility] [place] Address [address] [place] [address] Care Team Providers Care Software Support Technician Name Role Phone YAZ LEIGH [facility] Insurance Providers: All historical and [...] BASIC INDIV IDUAL May 31, 2008 [id number] LIAN,THE [place] PATIENT CAREMARK-F EP BCBS PRESCRIPT ION FEP CAREM ARK May 31, 2010 [id number] LIAN,THE [place] PATIENT MEDICARE (WNR) MEDICARE (M) PART A Jan 29, 2005 PART A [id number] LIAN,THE [place] PATIENT MEDICARE (WNR) MEDICARE (M) PART A Jan 29, 2005 PART A [id number] [phone] LIAN,THE [place] PATIENT Selected Encounter This section includes the information on record at [place] for the Encounter. Date/Time Encounter Type Encounter Description Reason Provider Source Jan 06, 2024 02:00 PM OFFICE O/P EST MOD 30 MIN PRIMARY CARE/MEDICINE ICD-10-CM F03.B18 Unsp dementia, moderate, with other behavioral disturb TAMY LEIGH AM Encounter Template Text not used by [place] Assessments - Encounter Diagnoses This section includes the primary and secondary diagnoses documented for the Encounter. Date/Time Primary/Secondary Diagnosis Diagnosis Name Provider Source Feb 02, 2024 01:29 PM PRIMARY Unsp dementia, moderate, with other behavioral disturb LEIGH,WILL TOM J [place] [facility] [place] [facility] Feb 02, 2024 01:29 PM SECONDARY Essential (primary) hypertension LEIGH,WILL [facility] [place] [facility] Feb 02, 2024 01:29 PM SECONDARY Hyperlipidemia, unspecified LEIGH,WILL [facility] [place] [facility] Plan of Treatment: Future Appointments (+ 6 months) and Future Tests (+/- 45 days) The Plan of Treatment section includes future care activities for the patient from [facility] [place] [facility] This section includes future appointments and future orders which are active, pending or scheduled. Future Appointments This section includes appointments that were scheduled to occur 6 months from the date of the Encounter, up to a maximum of 20 appointments. The data comes from all [place] treatment facilities. Appointment Date/Time Appointment Type Appointme nt Facility Name Jan 10, 2024 08:00 AM AM[place]ORY [place] [facility] [facility] Feb 01, 2024 09:00 AM [place] [facility] [place] [facility] Feb 14, 2024 02:30 PM AMBULATORY [place]RY [place] [facility] [place] [facility] Mar 22, 2024 03:30 PM AM[place]ORY [place]ICINE [place] [facility] [facility] Mar 27, 2024 02:00 PM AMBUL[place]ORY - NONE [place] [facility] [place] [facility] Apr 19, 2024 02:00 PM AMBULATORY - NONE [place] [facility] [place] [facility] Jun 12, 2024 03:00 PM AMBUL[place]ORY [place] [facility] [facility] Jun 22, 2024 03:00 PM AM[facility] [place]INE [place] [facility] [place] [facility] Jun 28, 2024 02:00 PM [facility] Jul 03, 2024 02:00 PM [facility] Active, Pending, and Scheduled Orders This section includes a listing of several types of active, pending, and scheduled orders, including clinic medications orders, diagnostic test orders, procedure orders and consult orders; where the start date of the order is 45 days before the date of the Encounter or 45 days after the date of theEncounter. The data comes from all [place] treatment facilities. Test Date/Time Test Type Test Details Facility Name Dec 31, 2023 03:28 PM Consult Order COMMUNITY CARE-NEUROLOGY Cons Bit [facility] Jan 04, 2024 03:44 PM Consult Order [facility] NON-SKILLED HOME HEALTH AIDE Cons Bit [facility]ander[facility] Jan 09, 2024 05:34 PM Consult Order [facility] SKILLED HOME CARE Cons Bit Sander's Choice [facility] Lab Results: +/- 30 days of the [...] Range Comment Jan 06, 2024 02:57 PM [facility] CBC Specimen Type: BLOOD No comment entered. Ordering Provider: SOTO LEIGH Report Released Date/Time: Dec 28, 2023 10:07 AM Reporting Lab: [address] [address] Performing Lab: [address] [address] WBC 6.55 10*3/uL 4.50-11.00 RBC 5.28 10*6/uL 4.23-5.66 HGB 14.2 g/dL 12.8-17 HCT 44.0 39.2-50.4 MCV 83.3 fL 82-99 MCHC 32.3 g/dL 30.8-35.1 PLT 217 10*3/uL 140-360 RDW-CV 15.0 12.0-16.0 MCH 26.9 pg 26.2-32.6 Jan 06, 2024 02:57 PM [facility] BASIC METABOLIC PANEL (non-fasting) Specimen Type: SERUM No comment entered. Ordering Provider: SOTO LEIGH Report Released Date/Time: Dec 28, 2023 10:07 AM Reporting Lab: [address] [address] Performing Lab: [address] [address] UREA NITROGEN 16 mg/dL 7-25 GLUCOSE 100 mg/dL 65-100 SODIUM 137 mmol/L 135-145 POTASSIUM 4.7 mmol/L 3.5-5.0 CHLORIDE 109 mmol/L 100-110 CO2 22 meq/L 20-30 CREATININE, Serum 1.41 mg/dL H 0.50-1.40 eGFR(CKD-EPI 2020) 49 mL/min L >60 Jan 06, 2024 02:57 PM [facility] LIPID PANEL, NON FASTING Specimen Type: SERUM No comment entered. Ordering Provider: SOTO LEIGH Report Released Date/Time: Dec 28, 2023 10:07 AM Reporting Lab: [address] [address] Performing Lab: [address] [address] CHOLESTEROL 206 mg/dL H TRIGLYCERIDE 124 mg/dL 0-150 LDL calculated 139 mg/dL H 0-129 CHOL/HDL 4.9 HDL CHOLESTEROL 42 mg/dL 40-60 Jan 06, 2024 02:57 PM [facility] LIVER FUNCTION Specimen Type: SERUM No comment entered. Ordering Provider: SOTO LEIGH Report Released Date/Time: Dec 28, 2023 10:07 AM Reporting Lab: [address] [address] Performing Lab: [facility] [place] [facility] [address] [facility] [address] PROTEIN,TOTAL 6.5 g/dL 6.0-8.3 ALBUMIN 3.5 g/dL 3.5-5.0 ALKALINE PHOSPHATASE 46 U/L 40-150 AST 14 U/L 5-34 ALT 21 U/L BILIRUBIN, TOTAL 0.6 mg/dL 0.2-1.2 Vital Signs: All taken on the encounter date This section contains inpatient and outpatient Vital Signs collected on the date of the Encounter. Date/Time Temperature Pulse Blood Pressure Respiratory Rate SP02 Pain Height Weight Body Mass Index Source Jan 06, 2024 02:16 PM 193 27 [place] [facility] [place] [facility] Jan 06, 2024 02:10 PM 97.3 90 120/67 20 96 0 71 [place] [facility] [facility] Social History: Smoking Status (Most current) and [...] YRS OR MORE [place] [facility] [facility] Tobacco Use History This section includes a history of the smoking, or tobacco-related health factors, that were collected on or before the date of the Encounter. The data comes from the [place] facility where the Encounter took place. Date/Time Smoking Status/Tobacco Use Comment F acility Jan 06, 2024 02:00 PM VA-TOBACCO QUIT 15 YRS OR MORE [place] [facility] [facility] Oct 29, 2022 03:30 PM VA-TOBACCO FORMER USER [place] [facility] [place] [facility] Oct 29, 2022 03:30 PM VA-TOBACCO QUIT 15 YRS OR MORE [place] [facility] [place] [facility] May 21, 2021 07:21 PM VA-TOBACCO FORMER USER [place] [facility] [place] [facility] May 21, 2021 07:21 PM VA-TOBACCO QUIT 15 YRS OR MORE [place] [facility] [facility] Radiology Reports: +/- 30 days of the [...] the Encounter. The data comes from all [place] treatment facilities. Date/Time Radiology Report Provider Source Jan 06, 2024 03:[address] [facility] W/O CONT: MARY BEAL EDWAR [id number] M Exm Date: JAN 06, 2024@15:07 Req Phys: YAZ LEIGH Loc: [facility]/NO/PACT 7 (Req'g Loc) Img Loc: [facility]/CT Service: [facility] , (Case [id number] COMPLETE) CT [place] W/O CONT (CT Detailed) CPT:53418 Reason for Study: follow up Clinical History: lung nodule Report Status: Verified Date Reported: JAN 06, 2024 Date Verified: JAN 06, 2024 [employer] E-Sig:/ES/ELISABETH RDZ JR Report: Study: Noncontrast CT [...] Primary Interpreting Staff: ELISABETH RDZ JR, Radiologist (Traffic Controller Cable) /ELISABETH PHILLIPS JR [facility] Encounter Notes: All associated encounter notes This section contains the clinical notes associated to the Encounter. Date/Time Encounter Note(s) Provider Source Jan 07, 2024 07:13 AM ADDENDUM: LOCAL TITLE: Addendum STANDARD TITLE: ADDENDUM DATE OF NOTE: JAN 07, 2024@07:13:53 ENTRY DATE: JAN 07, 2024@07:13:54 AUTHOR: YAZ LEIGH EXP COSIGNER: URGENCY: STATUS: COMPLETED please let know, labs look good. Chest ct per radiology, lung nodule no longer present, resolved. At this point no further imaging indicated. thank you /nick/ Yaz Leigh DNP, PASSENGER CAR CONDUCTOR-BC, DARLENEL Primary Care Nurse Practitioner Signed: 01/07/2024 07:14 Receipt Acknowledged By: 01/07/2024 08:39 /nick/ Anjelica Ashley MSN RN CNL Primary Care RN --- Original Document --- 01/06/24 NURSE PRACTITIONER OUTPATIENT NOTE: Chief complaint: Patient is a 83 year old . HPI: Pleasant male Asotin here with his . She is his primary caregiver. They moved recently which was good for his , easier to manage. She is looking forward to current POLICY CANCELLATION CLERK coming in, will provide her some respite. We did discuss end of life wishes confirming DNR status. Dementia, he is following in neurology. Allergies: Patient has answered NKA The following VA and Non-VA meds were reconciled with patient. The patient was educated on the use of the medications including indication and side effects. Active and Recently Outpatient Medications (excluding Supplies): Active Outpatient Medications Status 1) BENZONATATE 100MG CAP TAKE ONE CAPSULE BY MOUTH THREE ACTIVE TIMES DAILY NEEDED FOR COUGH 2) BUPROPION HCL 150MG 12HR SA TAB TAKE ONE TABLET BY ACTIVE MOUTH EVERY MORNING MOOD 3) GALANTAMINE HYDROBROMIDE 16MG SA CAP TAKE ONE CAPSULE ACTIVE BY MOUTH EVERY MORNING (TAKE IN THE MORNING, PREFERABLY WITH FOOD)FOR ALZHEIMER'S DEMENTIA 4) MIRTAZAPINE 15MG TAB TAKE ONE-HALF TABLET BY MOUTH AT ACTIVE BEDTIME FOR DEPRESSION/MOOD Active Non-VA Medications Status 1) Non-VA LOSARTAN 50MG TAB 50MG BY MOUTH ONCE DAILY ACTIVE 5 Total Medications Review of Systems: Constitutional: (-)for Fevers, chills, weakness, nights sweats On examination: 97.3 F [36.3 C] (01/06/2024 14:10)120/67 (01/06/2024 14:10)90 (01/06/2024 14:10) 20 (01/06/2024 14:10)0 (01/06/2024 14:10)BMI: 27.0193 lb [87.54 kg] (01/06/2024 14:16) Asotin is alert and oriented X2 Eyes:No scleral icterus, lids normal, Pupils equal,round and reactive to light HEENT: External without scars, lesions or masses, TM's without erythema or perforations, Oropharynx without erythema or exudates or worrisome lesions Neck: supple without masses, trachea midline, ln not palpable, no thyromegaly Cardiovasc: 2plus carotids without bruits, no JVD Heart Reguler rate and rhythm NL S1S2 no S3 or murmur Respiration: Normal respiratory effort, lungs clear ABD: Benign normal active bowel sounds no HSM no rebound or referred pain EXT: no clubbing, edema, or cyanosis All diagnostics from past month were reviewed with patient. Assessment/plan: Active problems - Computerized Problem List is the source for the followin. Dementia - following in neuro 2. HTN - Hypertension ([facility] [id number]) - well controlled 3. Hyperlipidemia ([facility] [id number]) - labs today 4. Multiple nodules of lung - ct ordered Review of medial record = 5mins Time spent with Patient including shared decision making = 20 mins Post visit documentation = 5mins Total time = 30 mins Follow up visit in 6 mos. Medication Reconciliation: Outpatient: Has the patient been [...] with a VA or non-VA provider. /nick/ Yaz Leigh DNP, PASSENGER CAR CONDUCTOR-BC, CNL Primary Care Nurse Practitioner Signed: 01/07/2024 07:13 01/07/2024 ADDENDUM STATUS: COMPLETED Spouse advised of above /nick/ Anjelica Ashley MSN RN CNL Primary Care RN Signed: 01/07/2024 08:40 YAZ LEIGH [place] [facility] [facility] Jan 06, 2024 02:12 PM PREVENTIVE MEDICINE NURSING NOTE: LOCAL TITLE: CLINICAL REMINDERS/NURSING STANDARD TITLE: PREVENTIVE MEDICINE NURSING NOTE DATE OF NOTE: JAN 06, 2024@14:12 ENTRY DATE: JAN 06, 2024@14:12:36 AUTHOR: JUAN DOMINGUEZ COSIGNER: URGENCY: STATUS: COMPLETED Advance Directive Screen AD: Patient does not have a completed advance directive on file at any facility, [place] or outside. S/he is not interested in completing one at this time. The patient received education about Advance Directives and written notification of his/her rights. Homelessness/Food Insecurity Screen: In the past 2 months, have you been living in stable housing that you own, rent, or stay in as part of a household? Yes - Living in stable housing. Are you worried or concerned that in the next 2 months you may NOT have stable housing that you own, rent, or stay in as part of a household? No - Not worried about housing near future The [place] reports the following: Within the past 12 months, you worried whether your food would run out before you got money to buy more. Never true Within the past 12 months, the food you bought just didn't last and you didn't have money to get more. Never true Falls & Incontinence Screen: Falls Screen: During the past 12 months, did the patient report any falls? 4. No falls within the past year. Incontinence Screen: During the past 12 months, has the patient has any characteristics of incontinence (ability, voiding, leakage, etc.)? No incontinence. Tobacco Use Screening: The patient is a former tobacco user. The patient quit fifteen or more years ago. Alcohol Use Screen (AUDIT-C): Alcohol Screen: SCREEN FOR ALCOHOL (AUDIT-C) An alcohol screening test (AUDIT-C) was negative (score=1). 1. How often did you have a drink containing alcohol in the past year? Consider a drink to be a 12 ounce can or bottle of regular beer, 8 ounces of malt liquor, a 5 ounce glass of table wine, or a 1.5 ounce shot of liquor (like scotch, gin, or vodka). Monthly or less 2. How many drinks containing alcohol did you have on a typical day when you were drinking in the past year? One or two drinks 3. How often did you have six or more drinks on one occasion in the past year? Never /es/ Juan Dominguez, Health Crochet Machine Operator FURNACE BRAZER,PRIMARY CARE Signed: 01/06/2024 14:16 JUAN DOMINGUEZ [place] [facility] [place] [facility] Jan 06, 2024 02:00 PM PRIMARY CARE NURSE PRACTITIONER OUTPATIENT NOTE: LOCAL TITLE: NURSE PRACTITIONER OUTPATIENT NOTE STANDARD TITLE: PRIMARY CARE NURSE PRACTITIONER OUTPATIENT NOTE DATE OF NOTE: JAN 06, 2024@14:00 ENTRY DATE: JAN 07, 2024@07:08:58 AUTHOR: YAZ LEIGH COSIGNER: URGENCY: STATUS: COMPLETED NURSE PRACTITIONER OUTPATIENT NOTE Has ADDENDA Chief complaint: Patient is a 83 year old [place]. HPI: Pleasant male Asotin here with his . She is his primary caregiver. They moved recently which was good for his , easier to manage. She is looking forward to current POLICY CANCELLATION CLERK coming in, will provide her some respite. We did discuss end of life wishes confirming DNR status. Dementia, he is following in neurology. Allergies: Patient has answered NKA The following VA and Non-VA meds were reconciled with patient. The patient was educated on the use of the medications including indication and side effects. Active and Recently Outpatient Medications (excluding Supplies): Active Outpatient Medications Status 1) BENZONATATE 100MG CAP TAKE ONE CAPSULE BY MOUTH THREE ACTIVE TIMES DAILY NEEDED FOR COUGH 2) BUPROPION HCL 150MG 12HR SA TAB TAKE ONE TABLET BY ACTIVE MOUTH EVERY MORNING MOOD 3) GALANTAMINE HYDROBROMIDE 16MG SA CAP TAKE ONE CAPSULE ACTIVE BY MOUTH EVERY MORNING (TAKE IN THE MORNING, PREFERABLY WITH FOOD)FOR ALZHEIMER'S DEMENTIA 4) MIRTAZAPINE 15MG TAB TAKE ONE-HALF TABLET BY MOUTH AT ACTIVE BEDTIME FOR DEPRESSION/MOOD Active Non-VA Medications Status 1) Non-VA LOSARTAN 50MG TAB 50MG BY MOUTH ONCE DAILY ACTIVE 5 Total Medications Review of Systems: Constitutional: (-)for Fevers, chills, weakness, nights sweats On examination: 97.3 F [36.3 C] (01/06/2024 14:10)120/67 (01/06/2024 14:10)90 (01/06/2024 14:10) 20 (01/06/2024 14:10)0 (01/06/2024 14:10)BMI: 27.0193 lb [87.54 kg] (01/06/2024 14:16) Asotin is alert and oriented X2 Eyes:No scleral icterus, lids normal, Pupils equal,round and reactive to light HEENT: External without scars, lesions or masses, TM's without erythema or perforations, Oropharynx without erythema or exudates or worrisome lesions Neck: supple without masses, trachea midline, ln not palpable, no thyromegaly Cardiovasc: 2plus carotids without bruits, no JVD Heart Reguler rate and rhythm NL S1S2 no S3 or murmur Respiration: Normal respiratory effort, lungs clear ABD: Benign normal active bowel sounds no HSM no rebound or referred pain EXT: no clubbing, edema, or cyanosis All diagnostics from past month were reviewed with patient. Assessment/plan: Active problems - Computerized Problem List is the source for the followin. Dementia - following in neuro 2. HTN - Hypertension ([facility] [id number]) - well controlled 3. Hyperlipidemia ([facility] [id number]) - labs today 4. Multiple nodules of lung - ct ordered Review of medial record = 5mins Time spent with Patient including shared decision making = 20 mins Post visit documentation = 5mins Total time = 30 mins Follow up visit in 6 mos. Medication Reconciliation: Outpatient: Has the patient been taking medications as documented in the EMLR? YES: The patient has been taking medications as documented in the EMLR. Essential Medication List for Review used to complete this medication reconciliation. INCLUDED IN THIS LIST: Alphabetical list of active outpatient prescriptions dispensed from this [place] (local) and dispensed from another [place] or [place] facility (remote) as well as [...] with a VA or non-VA provider. /nick/ AKYLA Holm DNP, WANDA Primary Care Nurse Practitioner Signed: 01/07/2024 07:13 01/07/2024 ADDENDUM STATUS: COMPLETED please let know, labs look good. Chest ct per radiology, lung nodule no longer present, resolved. At this point no further imaging indicated. thank you /KAYLA Rodríguez DNP, WANDA Primary Care Nurse Practitioner Signed: 01/07/2024 07:14 Receipt Acknowledged By: 01/07/2024 08:39 /radha CAZARES RN CNL Primary Care RN 01/07/2024 ADDENDUM STATUS: COMPLETED Spouse advised of above /radha CAZARES RN CNL Primary Care RN Signed: 01/07/2024 08:40 YAZ LEIGH [place] [facility] [facility] Jan 06, 2024 02:00 PM LIFE-SUSTAINING TREATMENT PLAN: LOCAL TITLE: LIFE-SUSTAINING TREATMENT STANDARD TITLE: LIFE-SUSTAINING TREATMENT PLAN DATE OF NOTE: JAN 06, 2024@14:00 ENTRY DATE: JAN 07, 2024@07:15:16 AUTHOR: YAZ LEIGH EXP COSIGNER: URGENCY: STATUS: COMPLETED LIFE-SUSTAINING TREATMENT (LST) DECISION-MAKING CAPACITY TO MAKE DECISIONS ABOUT LIFE_SUSTAINING TREATMENTS Patient does not have capacity to make decisions about LSTs ;LST plan written based on discussion with surrogate. HEALTH CARE SURROGATE'S NAME AND CONTACT INFORMATION Next of kin: Spouse Name and Contact Information: Tiki PATIENT'S (OR SURROGATE'S) UNDERSTANDING OF PATIENT'S HEALTH progressive 'S VALUES AND GOALS OF CARE - Goals as reported by the patient (or surrogate): comfort LIFE-SUSTAINING TREATMENT PLAN * In the event of cardiopulmonary arrest: DNAR/DNR: Do not attempt CPR. Other Life-Sustaining Treatments: No other life-sustaining treatments were discussed INFORMED CONSENT Patient's surrogate gave oral informed consent for life-sustaining treatment plan. Surrogate's name and contact information: Tiki STATE-AUTHORIZED PORTABLE ORDERS (ROGERIO) - Patient already has ROGERIO reflecting LST preferences Time spent discussing and documenting this care planning activity. Up to 30 minutes /es/ Yaz Leigh DNP, PASSENGER CAR CONDUCTOR-BC, CNL Primary Care Nurse Practitioner Signed: 01/07/2024 07:17 YAZ LEIGH [place] [facility]
--- OUTSIDE RECORDS SUMMARY | 2024-05-17 16:16 | XMS_ITS | Encounter Summary ---
Author Name [facility] [place] [facility] [place] [place] Address [address] [place] [id number] Care Team Providers Care Skidder Runner Name Role Phone YAZ WALTERS [facility] Insurance Providers: All historical and [...] BASIC INDIV IDUAL May 31, 2008 [id number] LIAN,THE [place] PATIENT CAREMARK-F EP BCBS PRESCRIPT ION FEP CAREM ARK May 31, 2010 [id number] ILAN,THE [place] PATIENT MEDICARE (WNR) MEDICARE (M) PART A Jan 29, 2005 PART A [id number] LIAN,THE [place] PATIENT MEDICARE (WNR) MEDICARE (M) PART A Jan 29, 2005 PART A [id number] LIAN,THE [place] PATIENT Selected Encounter This section includes the information on record at [place] for the Encounter. 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 This section includes future appointments and future orders which are active, pending or scheduled. Future Appointments This section includes appointments that were scheduled to occur 6 months from the date of the Encounter, up to a maximum of 20 appointments. The data comes from all [place] treatment facilities. Appointment Date/Time Appointment Type Appointme nt Facility Name Mar 27, 2024 02:00 PM [facility] Apr 19, 2024 02:00 PM [facility] - NONE [facility] [place] [facility] Jun 12, 2024 03:00 PM AMBULATORY - PS[facility]CHIATRY [facility] [place] [facility] Jun 22, 2024 03:00 PM AMBULATORY - [facility] Jun 28, 2024 02:00 PM [facility] [place] [facility] Jul 03, 2024 02:00 PM AM[facility]ULAT[facility] - [facility] Lab Results: +/- 30 days of the encounter This section includes the Chemistry and Hematology Lab Results on record with [place] for the patient. Radiology Reports and Pathology Reports are provided separately, in subsequent sections. Lab Results This section contains the Chemistry/Hematology Results that were resulted 30 days before or 30 daysafter the date of the Encounter. Date/Time Source Result Type Result - Unit Interpretation Reference Range Comment Mar 22, 2024 04:15 PM [facility] CREATININE (eGFR 2020) Specimen Type: SERUM No comment entered. Ordering Provider: SOTO WALTERS Report Released Date/Time: Mar 22, 2024 04:00 PM Reporting Lab: [address] [id number] Performing Lab: [address] [address] CREATININE, Serum 1.49 mg/dL H 0.50-1.40 eGFR(CKD-EPI 2020) 46 mL/min L >60 Mar 22, 2024 04:15 PM [facility] LIVER FUNCTION Specimen Type: SERUM No comment entered. Ordering Provider: SOTO WALTERS Report Released Date/Time: Mar 22, 2024 04:00 PM Reporting Lab: [address] [id number] Performing Lab: [address] [address] PROTEIN,TOTAL 6.9 g/dL 6.0-8.3 ALBUMIN 4.0 g/dL 3.5-5.0 ALKALINE PHOSPHATASE 49 U/L 40-150 AST 16 U/L 5-34 ALT 25 U/L BILIRUBIN, TOTAL 0.8 mg/dL 0.2-1.2 Mar 22, 2024 04:15 PM [facility] PT & INR (COUMADIN) Specimen Type: PLASMA No comment entered. Ordering Provider: SOTO WALTERS Report Released Date/Time: Mar 22, 2024 04:00 PM Reporting Lab: [address] [address] Performing Lab: [address] [address] INR 1.2 PROTIME 13.0 s 10.0-13.1 Mar 22, 2024 04:15 PM [facility] CBC Specimen Type: BLOOD No comment entered. Ordering Provider: SOTO WALTERS Report Released Date/Time: Mar 22, 2024 04:00 PM Reporting Lab: [place] [id number] Performing Lab: [address] [address] WBC 7.17 10*3/uL 4.50-11.00 RBC 5.39 10*6/uL 4.23-5.66 HGB 14.5 g/dL 12.8-17 HCT 44.1 39.2-50.4 MCV 81.8 fL L 82-99 MCHC 32.9 g/dL 30.8-35.1 PLT 223 10*3/uL 140-360 RDW-CV 14.4 12.0-16.0 MCH 26.9 pg 26.2-32.6 Radiology Reports: +/- 30 days of the [...] the Encounter. The data comes from all [place] treatment facilities. Date/Time Radiology Report Provider Source Mar 27, 2024 02:07 PM DUPLEX SCAN:EXTREMITY VEINS, COMPLETE BILATERAL: MARY BEAL [id number] [phone] M Ex Date: MAR 27, 2024@14:07 Req Phys: YAZ WALTERS Loc: CWM/NO/PACT 7 (Req'g Loc) Img Loc: ULTRASOUND Service: [place] [address] (Case [id number] COMPLETE) DUPLEX SCAN:EXTREMITY VEINS, COMP(US Detailed) CPT:90682 Reason for Study: recent dx of PE Clinical History: Seeking bilat lower extremity Report Status: Verified Date Reported: MAR 28, 2024 Date Verified: MAR 28, 2024 Roller Stainer E-Sig: Report: DUPLEX SCAN:EXTREMITY VEINS, COMPLETE BILATERAL HISTORY: recent dx of PE COMPARISON: None TECHNIQUE: Ultrasound of the bilateral lower extremity veins was performed at the local [place] facility. Multiple transverse and longitudinal grayscale, color Doppler and spectral Doppler images were obtained. Vessel patency was determined using a combination of compressibility, waveform analysis and augmentation where technically feasible. 46 images were received by the [place] National Telerad[employer] Program (NTP) for interpretation. FINDINGS: [...] LISTED ABOVE. READING PHYSICIAN: Maynor Ghotra M.D. -[id number] 03/28/2024 0:07 MDT [facility] National Teleradiology Program [phone] (For Medical Practitioner Use Only) Attention Patients / Veterans: If you have questions or concerns about these test results, please contact your ordering provider or primary care team. Primary Diagnostic Code: NO ALERT REQUIRED Primary Interpreting Staff: RADIOLOGY,OUTSIDE SERVICE, Staff Physician / RADIOLOGY,OUTSIDE SERVICE IN [facility] Encounter Notes: All associated encounter notes This section contains the clinical notes associated to the Encounter. Date/Time Encounter Note(s) Provider Source Mar 24, 2024 10:10 AM PHARMACY MEDICATION MGT NOTE: LOCAL TITLE: PHARMACY ANTICOAGULATION NOTE STANDARD TITLE: PHARMACY MEDICATION MGT NOTE DATE OF NOTE: MAR 24, 2024@10:10 ENTRY DATE: MAR 24, 2024@10:10:36 AUTHOR: EFRAIN MANNIGNER: URGENCY: STATUS: COMPLETED ANTICOAGULATION DOAC MONITORING NOTE SUBJECTIVE: Patient identified through the DOAC population Management Tool based on the following criteria: [ X ] Dosing Issue [ ] Critical Drug Interaction [ ] Cancer Treatment [ ] Active NSAID [ ] Labs Overdue [ ] Prosthetic Valve Replacement [ ] Notable Lab Value [ ] Overdue for Refill [ ] Other: Comments: In absence of VTE, apixaban doses > 10 mg/day are not recommended OBJECTIVE: Indication for anticoagulation: [ ] Atrial fibrilation [ ] Atrial flutter [ X ] VTE (DVT or PE) [ ] Post-op DVT prophylaxis [ ] Other: Most recent lab values include the following: HGB: HGB Collection DT Specimen Test Name Result Units Ref Range 03/22/2024 16:15 BLOOD HGB 14.5 g/dL 12.8 - 17 PLT: WBC Collection DT Specimen Test Name Result Units Ref Range 03/22/2024 16:15 BLOOD WBC 7.17 K/cmm 4.50 - 11.00 Liver Function Tests Collection DT Spec AST ALT ALK CH[place] ALBUMIN T BILI T. PROT 03/22/2024 16:15 SERUM 16 25 49 4.0 0.8 6.9 01/06/2024 14:57 SERUM 14 21 46 3.5 0.6 6.5 HEIGHT: 71 in [180.3 cm] (03/22/2024 15:39) WEIGHT: 180 lb [81.65 kg] (03/22/2024 15:39) BMI: BMI: 25.2 CREATININE-EGFR 03/22/24 16:15 1.49 H 01/06/24 14:57 1.41 H 06/28/23 14:21 1.45 H CRCL IBW: CrCl(est): 39.3 mL/min (Creat:1.49 03/22/24) CRCL ACT: 42.71 mL/min CRCL ADJ: 39.3 mL/min (03/22/24) ASSESSMENT: See anticoag consult note from 03/23/24. [place] is being treated for recent VTE. Dose is appropriate. PLAN: [ X ] No action required, dismiss flag [ ] Will intervene: [ ] Patient education via phone/letter [ ] Schedule phone/[id number] follow up [ ] Lab ordered [ ] Discontinue interacting medication [ ] Discontinue DOAC [ ] Change to alternative DOAC [ ] Change DOAC dose [ ] Notify PCP [ ] Consult cardiology/hematology [ ] Other: Time spent: 5 min /nick/ Efrain Mann, PharmD Clinical Therapy Site Coordinator Signed: 03/24/2024 10:12 EFRAIN MANN [facility] ([id number])
--- OUTSIDE RECORDS SUMMARY | 2024-05-17 16:16 | XMS_ITS ---
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 Name Role Phone ABDULLAHI LEIGH Primary Care [facility] Insurance Providers: All historical and current [...] BASIC INDIV IDUAL May 31, 2008 [id number] LIAN,THE [place] PATIENT CAREMARK-F EP BCBS PRESCRIPT ION FEP CAREM ARK May 31, 2010 [id number] LIAN,THE [place] PATIENT MEDICARE (WNR) MEDICARE (M) PART A Jan 29, 2005 PART A [id number] [phone] LAIN,THE [place] PATIENT MEDICARE (WNR) MEDICARE (M) PART A Jan 29, 2005 PART A [id number] LIAN,THE [place] PATIENT Selected Encounter This section includes the information on record at [place] for the Encounter. 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 Date/Time Primary/Secondary Diagnosis Diagnosis Name Provider Source Mar 23, 2024 01:39 PM PRIMARY [facility] (current) use of anticoagulants ASHELY WEAVER [place] [facility] [place] [facility] Mar 23, 2024 01:39 PM SECONDARY Sing subsegmental throm pulm emblsm w/o acute cor pulmonale [facility] Plan of Treatment: Future Appointments (+ 6 months) and Future Tests (+/- 45 days) The Plan of Treatment section includes future care activities for the patient from all [place] treatmentfaunc healthities. This section includes future appointments and future orders which are active, pending or scheduled. Future Appointments This section includes appointments that were scheduled to occur 6 months from the date of the Encounter, up to a maximum of 20 appointments. The data comes from all [place] treatment facilities. Appointment Date/Time Appointment Type Appointme nt Facility Name Mar 27, 2024 02:00 PM AMBULATORY - NONE [place] [facility] [place] [facility] Apr 19, 2024 02:00 PM AMBULATORY - NONE [facility] [place] [facility] Jun 12, 2024 03:00 PM AMBULATORY - PSYCHIATRY [facility] [place] [facility] Jun 22, 2024 03:00 PM AMBULATORY - MEDICINE [facility] [place] [facility] Jun 28, 2024 02:00 PM AMBULATORY - NONE [facility] [place] [facility] Jul 03, 2024 02:00 PM AMBULATORY - MEDICINE [place] [facility] [place] [facility] Lab Results: +/- 30 days of the encounter This section includes the Chemistry and Hematology Lab Results on record with [place] for the patient. Radiology Reports and Pathology Reports are provided separately, in subsequent sections. Lab Results This section contains the Chemistry/Hematology Results that were resulted 30 days before or 30 daysafter the date of the Encounter. Date/Time Source Result Type Result - Unit Interpretation Reference Range Comment Mar 22, 2024 04:15 PM [facility] CREATININE (eGFR 2020) Specimen Type: SERUM No comment entered. Ordering Provider: SOTO LEIGH Report Released Date/Time: Mar 22, 2024 04:00 PM Reporting Lab: [address] [address] Performing Lab: [address] [address] CREATININE, Serum 1.49 mg/dL H 0.50-1.40 eGFR(CKD-EPI 2020) 46 mL/min L >60 Mar 22, 2024 04:15 PM [facility] LIVER FUNCTION Specimen Type: SERUM No comment entered. Ordering Provider: SOTO LEIGH Report Released Date/Time: Mar 22, 2024 04:00 PM Reporting Lab: [address] [address] Performing Lab: [address] [address] PROTEIN,TOTAL 6.9 g/dL 6.0-8.3 ALBUMIN 4.0 g/dL 3.5-5.0 ALKALINE PHOSPHATASE 49 U/L 40-150 AST 16 U/L 5-34 ALT 25 U/L BILIRUBIN, TOTAL 0.8 mg/dL 0.2-1.2 Mar 22, 2024 04:15 PM [facility] PT & INR (COUMADIN) Specimen Type: PLASMA No comment entered. Ordering Provider: SOTO LEIGH Report Released Date/Time: Mar 22, 2024 04:00 PM Reporting Lab: [address] [address] Performing Lab: [address] [address] INR 1.2 PROTIME 13.0 s 10.0-13.1 Mar 22, 2024 04:15 PM [facility] CBC Specimen Type: BLOOD No comment entered. Ordering Provider: SOTO LEIGH Report Released Date/Time: Mar 22, 2024 04:00 PM Reporting Lab: [place] [facility] [place] [facility] [address] [address] Performing Lab: [place] [facility] [place] [facility] [address] [address] WBC 7.17 10*3/uL 4.50-11.00 RBC 5.39 10*6/uL 4.23-5.66 HGB 14.5 g/dL 12.8-17 HCT 44.1 39.2-50.4 MCV 81.8 fL L 82-99 MCHC 32.9 g/dL 30.8-35.1 PLT 223 10*3/uL 140-360 RDW-CV 14.4 12.0-16.0 MCH 26.9 pg 26.2-32.6 Social History: Smoking Status (Most current) and Tobacco Use (All prior to encounter date) This section includes the most current, and the historical, smoking and tobacco- related health factors from the [place] facility where the Encounter took place. Current Smoking Status This section includes the most current smoking, or tobacco-related health factor, from the [place] facility where the Encounter took place. Date/Time Current Smoking Status Comment Facil ity Jan 06, 2024 02:00 PM VA-TOBACCO FORMER USER [place] [facility] [place] [facility] Tobacco Use History This section includes a history of the smoking, or tobacco-related health factors, that were collected on or before the date of the Encounter. The data comes from the [place] facility where the Encounter took place. Date/Time Smoking Status/Tobacco Use Comment F acility Jan 06, 2024 02:00 PM VA-TOBACCO QUIT 15 YRS OR MORE [facility] [place] [facility] Oct 29, 2022 03:30 PM VA-TOBACCO FORMER USER [place] [facility] [place] [facility] Oct 29, 2022 03:30 PM VA-TOBACCO QUIT 15 YRS OR MORE [facility] [place] [facility] May 21, 2021 07:21 PM VA-TOBACCO FORMER USER [facility] [place] [facility] May 21, 2021 07:21 PM VA-TOBACCO QUIT 15 YRS OR MORE [facility] Radiology Reports: +/- 30 days of the [...] the Encounter. The data comes from all [place] treatment facilities. Date/Time Radiology Report Provider Source Mar 27, 2024 02:07 PM DUPLEX SCAN:EXTREMITY VEINS, COMPLETE BILATERAL: MARY BEAL [id number] [id number] M Exm Date: MAR 27, 2024@14:07 Req Phys: ABDULLAHI LEIGH Loc: CWM/NO/PACT 7 (Req'g Loc) Img Loc: ULTRASOUND Service: [place] [address] (Case [id number] COMPLETE) DUPLEX SCAN:EXTREMITY VEINS, COMP(US Detailed) CPT:73137 Reason for Study: recent dx of PE Clinical History: Seeking bilat lower extremity Report Status: Verified Date Reported: MAR 28, 2024 Date Verified: MAR 28, 2024 Adult School Counselor E-Sig: Report: DUPLEX SCAN:EXTREMITY VEINS, COMPLETE BILATERAL HISTORY: recent dx of PE COMPARISON: None TECHNIQUE: Ultrasound of the bilateral lower extremity veins was performed at the local [place] facility. Multiple transverse and longitudinal grayscale, color Doppler and spectral Doppler images were obtained. Vessel patency was determined using a combination of compressibility, waveform analysis and augmentation where technically feasible. 46 images were received by the [place] National Teleradiology Program (NTP) for interpretation. FINDINGS: [...] LISTED ABOVE. READING PHYSICIAN: Maynor Ghotra M.D. -[id number] 03/28/2024 0:07 MDT [facility] National Teleradiology Program [phone] (For Medical Practitioner Use Only) Attention Patients / Veterans: If you have questions or concerns about these test results, please contact your ordering provider or primary care team. Primary Diagnostic Code: NO ALERT REQUIRED Primary Interpreting Staff: RADIOLOGY,OUTSIDE SERVICE, Staff Physician / RADIOLOGY,OUTSIDE SERVICE [facility] Encounter Notes: All associated encounter notes This section contains the clinical notes associated to the Encounter. Date/Time Encounter Note(s) Provider Source Mar 23, 2024 02:59 PM ADDENDUM: LOCAL TITLE: Addendum STANDARD TITLE: ADDENDUM DATE OF NOTE: MAR 23, 2024@14:59:25 ENTRY DATE: MAR 23, 2024@14:59:26 AUTHOR: ASHELY WEAVER EXP COSIGNER: URGENCY: STATUS: COMPLETED Requesting PCP for an order for apixaban 10mg q12h X 7 days, followed by apixaban 5mg Q12H. Pt requesting WINDOW PICKUP for medication tomorrow in [facility]. /nick/ ASHELY WEAVER PHARMD, BCPS CLINICAL PHARMACIST PRACTITIONER Signed: 03/23/2024 15:00 Receipt Acknowledged By: 03/23/2024 15:11 /es/ Abdullahi Leigh DNP, CERTIFIED TOWER CLIMBER-, CN Primary Care Nurse Practitioner --- Original Document --- 03/23/24 CONSULT REPORT/ANTICOAGULATION CLINIC: Initial Note: Anticoagulation DOAC Agent Progress Note Reason for visit: Initial Education for Apixaban/Eliquis Indication: DVT treatment, Other: PE (03/17/24) Start Date: tbd Expected Duration: 3 months Referring Provider: Reese Patient Contact: Patient has given permission to leave anticoagulation message on answering machine or with person listed. Subjective: Called pt for initial apixaban education. Spoke to Jada (communication authorization on file). States that pt was diagnosed with multiple PEs while in [place] for a wedding. Decided to hold on meedication initiation due to fear of nose bleeds (which pt has had in the past but non in last few months). States they spoke to PCP and willing to start. Agreeable to initiate apixaban 10 mg Q12H x 7 days, then reduce to 5 mg Q12H. Per Jada, pt will be using a pillbox. Denies OTC NSAID use or upcoming procedures. EtOH consumption classifed as 1-2 beers/day most days of the week. Jada counseled. Declines anticoagulation bracelet/necklace at the moment but requests apixaban handout. 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 Labs: CBC (last 90 days): CBC Collection DT Specimen Test Name Result Units Ref Range 03/22/2024 16:15 BLOOD WBC 7.17 K/cmm 4.50 - 11.00 01/06/2024 14:57 BLOOD WBC 6.55 K/cmm 4.50 - 11.00 03/22/2024 16:15 BLOOD RBC 5.39 M/cmm 4.23 - 5.66 01/06/2024 14:57 BLOOD RBC 5.28 M/cmm 4.23 - 5.66 03/22/2024 16:15 BLOOD HGB 14.5 g/dL 12.8 - 17 01/06/2024 14:57 BLOOD HGB 14.2 g/dL 12.8 - 17 03/22/2024 16:15 BLOOD HCT 44.1 % 39.2 - 50.4 01/06/2024 14:57 BLOOD HCT 44.0 % 39.2 - 50.4 03/22/2024 16:15 BLOOD MCV 81.8 L fl 82 - 99 01/06/2024 14:57 BLOOD MCV 83.3 fl 82 - 99 03/22/2024 16:15 BLOOD MCHC 32.9 g/dL 30.8 - 35.1 01/06/2024 14:57 BLOOD MCHC 32.3 g/dL 30.8 - 35.1 03/22/2024 16:15 BLOOD PLT 223 K/cmm 140 - 360 01/06/2024 14:57 BLOOD PLT 217 K/cmm 140 - 360 03/22/2024 16:15 BLOOD RDW-CV 14.4 % 12.0 - 16.0 01/06/2024 14:57 BLOOD RDW-CV 15.0 % 12.0 - 16.0 SrCr (last 6 weeks): CREATININE-EGFR 03/22/24 16:15 1.49 H CRCL IBW: CrCl(est): 39.3 mL/min (Creat:1.49 03/22/24) CRCL ACT: 42.71 mL/min CRCL ADJ: 39.3 mL/min (03/22/24) LFTs: 03/22/24 WNL Vitals: Weight (BMI): 180 lb [81.65 kg] (03/22/2024 15:39) BMI: 25.2 Height: 71 in [180.3 cm] (03/22/2024 15:39) Active Outpatient Medications (including Supplies): BUPROPION HCL 150MG 12HR SA TAB TAKE ONE TABLET BY MOUTH ACTIVE EVERY MORNING MOOD GALANTAMINE HYDROBROMIDE 16MG SA CAP TAKE ONE CAPSULE BY ACTIVE MOUTH EVERY MORNING (TAKE IN THE MORNING, PREFERABLY WITH FOOD)FOR ALZHEIMER'S DEMENTIA OMEPRAZOLE 20MG EC CAP TAKE ONE CAPSULE BY MOUTH EVERY ACTIVE MORNING 30 MINUTES BEFORE BREAKFAST Non-VA LOSARTAN 50MG TAB 50MG BY MOUTH ONCE DAILY ACTIVE Interacting Meds: Bupropion (pt counsled) Apixaban: The patient was provided with the following education: --Purpose of Apixaban --Signs and symptoms of stroke and thrombosis and what to do should they occur --Medication Identification --Dosing recommendations -Apixaban may be taken with or without food -Apixaban may be crushed --Storage recommendations -Store medication in a dry area at room temperature --Recommendations for missed doses or overdosage --Importance of medication compliance and avoiding lapses in therapy to minimize the risk of stroke --Monitor for signs/symptoms of bleeding, including: -[place] or brown urine -Red or black tarry stools -Coughing up blood -Vomiting blood or vomit that looks like coffee grounds -Reoccurring nosebleeds -Unusual bleeding from the gums -Bleeding from a cut that does not stop -Headaches, dizziness or weakness --Contact this clinic or provider if patient experiences and serious or intolerable adverse effects --Review risks associated with falling --Which medications to avoid due to drug interactions --Importance of notifying all providers of any medication patient is taking or changes that may occur --What to do if patient wants to discontinue therapy --Contact this clinic or provider if scheduled for a procedure --Contact number for the [facility] provided Assessment/Plan: Pt appropriate for treatment on apixaban. 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 to kindly mail apixaban handout Time Spent: 15 minutes Next Appt: Mar 4 weeks Next PCP Appt: 06/22/24 EDUCATION Provided with verbal instructions: Yes Provided with written instructions: Yes Barriers to learning: No Readiness to learn: Yes Specific dose directions reviewed: Yes Opportunity for questions/discussion: Yes Reports understanding of instructions: Yes Further learning needs: No PBM PharmD Pharmacotherapy Rem V12: PHARMACIST INTERVENTIONS: ANTICOAGULATION THERAPY DIRECT ORAL ANTICOAGULANT (DOAC) MANAGEMENT Medication monitoring, no dosage change required, continue to monitor and assess Medication reconciliation (changes to active VA and non-VA medication lists to reconcile differences) No changes to medication lists made (medication review completed, no discrepancies identified) /nick/ ASHELY WEAVER PHARMD, [facility] CLINICAL PHARMACIST PRACTITIONER Signed: 03/23/2024 14:58 Receipt Acknowledged By: 03/23/2024 15:09 /nick/ VALERIE DOCKERY Clinical Public Health Physician ASHELY WEAVER [place] [facility] [place] [facility] Mar 23, 2024 01:39 PM PHARMACY MEDICATIO N MGT CONSULT: LOCAL TITLE: CONSULT REPORT/ANTICOAGULATION CLINIC STANDARD TITLE: PHARMACY MEDICATION MGT CONSULT DATE OF NOTE: MAR 23, 2024@13:39 ENTRY DATE: MAR 23, 2024@13:39:38 AUTHOR: ASHELY WEAVER EXP COSIGNER: URGENCY: STATUS: COMPLETED CONSULT REPORT/ANTICOAGULATION CLINIC Has ADDENDA Initial Note: Anticoagulation DOAC Agent Progress Note Reason for visit: Initial Education for Apixaban/Eliquis Indication: DVT treatment, Other: PE (03/17/24) Start Date: tbd Expected Duration: 3 months Referring Provider: Reese Patient Contact: Patient has given permission to leave anticoagulation message on answering machine or with person listed. Subjective: Called pt for initial apixaban education. Spoke to Jada (communication authorization on file). States that pt was diagnosed with multiple PEs while in [place] for a wedding. Decided to hold on meedication initiation due to fear of nose bleeds (which pt has had in the past but non in last few months). States they spoke to PCP and willing to start. Agreeable to initiate apixaban 10 mg Q12H x 7 days, then reduce to 5 mg Q12H. Per Jada, pt will be using a pillbox. Denies OTC NSAID use or upcoming procedures. EtOH consumption classifed as 1-2 beers/day most days of the week. Jada counseled. Declines anticoagulation bracelet/necklace at the moment but requests apixaban handout. 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 Labs: CBC (last 90 days): CBC Collection DT Specimen Test Name Result Units Ref Range 03/22/2024 16:15 BLOOD WBC 7.17 K/cmm 4.50 - 11.00 01/06/2024 14:57 BLOOD WBC 6.55 K/cmm 4.50 - 11.00 03/22/2024 16:15 BLOOD RBC 5.39 M/cmm 4.23 - 5.66 01/06/2024 14:57 BLOOD RBC 5.28 M/cmm 4.23 - 5.66 03/22/2024 16:15 BLOOD HGB 14.5 g/dL 12.8 - 17 01/06/2024 14:57 BLOOD HGB 14.2 g/dL 12.8 - 17 03/22/2024 16:15 BLOOD HCT 44.1 % 39.2 - 50.4 01/06/2024 14:57 BLOOD HCT 44.0 % 39.2 - 50.4 03/22/2024 16:15 BLOOD MCV 81.8 L fl 82 - 99 01/06/2024 14:57 BLOOD MCV 83.3 fl 82 - 99 03/22/2024 16:15 BLOOD MCHC 32.9 g/dL 30.8 - 35.1 01/06/2024 14:57 BLOOD MCHC 32.3 g/dL 30.8 - 35.1 03/22/2024 16:15 BLOOD PLT 223 K/cmm 140 - 360 01/06/2024 14:57 BLOOD PLT 217 K/cmm 140 - 360 03/22/2024 16:15 BLOOD RDW-CV 14.4 % 12.0 - 16.0 01/06/2024 14:57 BLOOD RDW-CV 15.0 % 12.0 - 16.0 SrCr (last 6 weeks): CREATININE-EGFR 03/22/24 16:15 1.49 H CRCL IBW: CrCl(est): 39.3 mL/min (Creat:1.49 03/22/24) CRCL ACT: 42.71 mL/min CRCL ADJ: 39.3 mL/min (03/22/24) LFTs: 03/22/24 WNL Vitals: Weight (BMI): 180 lb [81.65 kg] (03/22/2024 15:39) BMI: 25.2 Height: 71 in [180.3 cm] (03/22/2024 15:39) Active Outpatient Medications (including Supplies): BUPROPION HCL 150MG 12HR SA TAB TAKE ONE TABLET BY MOUTH ACTIVE EVERY MORNING MOOD GALANTAMINE HYDROBROMIDE 16MG SA CAP TAKE ONE CAPSULE BY ACTIVE MOUTH EVERY MORNING (TAKE IN THE MORNING, PREFERABLY WITH FOOD)FOR ALZHEIMER'S DEMENTIA OMEPRAZOLE 20MG EC CAP TAKE ONE CAPSULE BY MOUTH EVERY ACTIVE MORNING 30 MINUTES BEFORE BREAKFAST Non-VA LOSARTAN 50MG TAB 50MG BY MOUTH ONCE DAILY ACTIVE Interacting Meds: Bupropion (pt counsled) Apixaban: The patient was provided with the following education: --Purpose of Apixaban --Signs and symptoms of stroke and thrombosis and what to do should they occur --Medication Identification --Dosing recommendations -Apixaban may be taken with or without food -Apixaban may be crushed --Storage recommendations -Store medication in a dry area at room temperature --Recommendations for missed doses or overdosage --Importance of medication compliance and avoiding lapses in therapy to minimize the risk of stroke --Monitor for signs/symptoms of bleeding, including: -[place] or brown urine -Red or black tarry stools -Coughing up blood -Vomiting blood or vomit that looks like coffee grounds -Reoccurring nosebleeds -Unusual bleeding from the gums -Bleeding from a cut that does not stop -Headaches, dizziness or weakness --Contact this clinic or provider if patient experiences and serious or intolerable adverse effects --Review risks associated with falling --Which medications to avoid due to drug interactions --Importance of notifying all providers of any medication patient is taking or changes that may occur --What to do if patient wants to discontinue therapy --Contact this clinic or provider if scheduled for a procedure --Contact number for the [facility] provided Assessment/Plan: Pt appropriate for treatment on apixaban. 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 to kindly mail apixaban handout Time Spent: 15 minutes Next Appt: Mar 4 weeks Next PCP Appt: 06/22/24 EDUCATION Provided with verbal instructions: Yes Provided with written instructions: Yes Barriers to learning: No Readiness to learn: Yes Specific dose directions reviewed: Yes Opportunity for questions/discussion: Yes Reports understanding of instructions: Yes Further learning needs: No PBM PharmD Pharmacotherapy Rem V12: PHARMACIST INTERVENTIONS: ANTICOAGULATION THERAPY DIRECT ORAL ANTICOAGULANT (DOAC) MANAGEMENT Medication monitoring, no dosage change required, continue to monitor and assess Medication reconciliation (changes to active VA and non-VA medication lists to reconcile differences) No changes to medication lists made (medication review completed, no discrepancies identified) /nick/ ASHELY WEAVER PHARMD, [facility] CLINICAL PHARMACIST PRACTITIONER Signed: 03/23/2024 14:58 Receipt Acknowledged By: 03/23/2024 15:09 /nick/ VALERIE DOCKERY Clinical Public Health Physician 03/23/2024 ADDENDUM STATUS: COMPLETED Requesting PCP for an order for apixaban 10mg q12h X 7 days, followed by apixaban 5mg Q12H. Pt requesting WINDOW PICKUP for medication tomorrow in [facility]. /radha WEAVER PHARMD, BCPS CLINICAL PHARMACIST PRACTITIONER Signed: 03/23/2024 15:00 Receipt Acknowledged By: * AWAITING SIGNATURE * ABDULLAHI LEIGH ADITIYA [facility]
--- OUTSIDE RECORDS SUMMARY | 2024-05-17 16:16 | XMS_ITS | Encounter Summary ---
Author Name [facility] Organization [facility] Address [address] [place] [address] Care Team Providers Care Speech Lang Path Name Role Phone YAZ WALTERS Primary Care Provider [facility] Insurance Providers: All historical and [...] BASIC INDIV IDUAL May 31, 2008 [id number] LIAN,THE [place] PATIENT CAREMARK-F EP BCBS PRESCRIPT ION FEP CAREM ARK May 31, 2010 [id number] LIAN,THE [place] PATIENT MEDICARE (WNR) MEDICARE (M) PART A Jan 29, 2005 PART A [id number] LIAN,THE [place] PATIENT MEDICARE (WNR) MEDICARE (M) PART A Jan 29, 2005 PART A [id number] LIAN,THE [place] PATIENT Selected Encounter This section includes the information on record at [place] for the Encounter. Date/Time Encounter Type Encounter Description Reason Provider Source Feb 14, 2024 02:30 PM OFFICE O/P EST MOD 30 MIN [facility] - IND ICD-10-CM F03.B18 Unsp dementia, moderate, with other behavioral disturb JACI CRUZ E Encounter Template Text not used by [place] Assessments - Encounter Diagnoses This section includes the primary and secondary diagnoses documented for the Encounter. Date/Time Primary/Secondary Diagnosis Diagnosis Name Provider Source Feb 26, 2024 11:46 AM PRIMARY Unsp dementia, moderate, with other behavioral disturb JACI CRUZ [facility] Feb 26, 2024 11:46 AM SECONDARY Major depressive disorder, single episode, moderate JACI CRUZ [facility] Plan of Treatment: Future Appointments (+ 6 months) and Future Tests (+/- 45 days) The Plan of Treatment section includes future care activities for the patient from all [place]. This section includes future appointments and future orders which are active, pending or scheduled. Future Appointments This section includes appointments that were scheduled to occur 6 months from the date of the Encounter, up to a maximum of 20 appointments. The data comes from all [place] treatment facilities. Appointment Date/Time Appointment Type Appointme nt Facility Name Mar 22, 2024 03:30 PM AMBULATORY - MEDICINE [facility] Mar 27, 2024 02:00 PM AMBULATORY - NONE [facility] Apr 19, 2024 02:00 PM AMBULATORY - NONE [facility] Jun 12, 2024 03:00 PM AMBULATORY - PSYCHIATRY [facility] Jun 22, 2024 03:00 PM AMBULATORY - MEDICINE [facility] Jun 28, 2024 02:00 PM AMBULATORY - NONE [facility] Jul 03, 2024 02:00 PM AMBULATORY - MEDICINE [facility] Active, Pending, and Scheduled Orders This section includes a listing of several types of active, pending, and scheduled orders, including clinic medications orders, diagnostic test orders, procedure orders and consult orders; where the start date of the order is 45 days before the date of the Encounter or 45 days after the date of theEncounter. The data comes from all [place] treatment facilities. Test Date/Time Test Type Test Details Facility Name Dec 31, 2023 03:28 PM Consult Order COMMUNITY [facility]-NEUROLOGY [facility] [employer] [employer] Jan 04, 2024 03:44 PM Consult Order COMMUNITY [facility] NON-SKILLED HOME HEALTH AIDE [facility] [employer] [facility] Jan 09, 2024 05:34 PM Consult Order [facility] SKILLED HOME CARE [facility] [employer] [facility] Social History: Smoking Status (Most current) and Tobacco Use (All prior to encounter date) This section includes the most current, and the historical, smoking and tobacco- related health factors from the [place] facility where the Encounter took place. Current Smoking Status This section includes the most current smoking, or tobacco-related health factor, from the [place] facility where the Encounter took place. Date/Time Current Smoking Status Comment Facil ity Jan 06, 2024 02:00 PM VA-TOBACCO FORMER USER [facility] Tobacco Use History This section includes a history of the smoking, or tobacco-related health factors, that were collected on or before the date of the Encounter. The data comes from the [place] facility where the Encounter took place. Date/Time Smoking Status/Tobacco Use Comment F acility Jan 06, 2024 02:00 PM VA-TOBACCO QUIT 15 YRS OR MORE [facility] Oct 29, 2022 03:30 PM VA-TOBACCO FORMER USER [facility] Oct 29, 2022 03:30 PM VA-TOBACCO QUIT 15 YRS OR MORE [facility] May 21, 2021 07:21 PM VA-TOBACCO FORMER USER [facility] May 21, 2021 07:21 PM VA-TOBACCO QUIT 15 YRS OR MORE [facility] Encounter Notes: All associated encounter notes This section contains the clinical notes associated to the Encounter. Date/Time Encounter Note(s) Provider Source Feb 15, 2024 09:41 AM MENTAL HEALTH TREATMENT PLAN NOTE: LOCAL TITLE: MH TREATMENT PLAN STANDARD TITLE: MENTAL HEALTH TREATMENT PLAN NOTE DATE OF NOTE: FEB 15, 2024@09:41:26 ENTRY DATE: FEB 15, 2024@09:41:37 AUTHOR: ALIZA CRUZ EXP COSIGNER: URGENCY: STATUS: COMPLETED MH TREATMENT PLAN - Jan, @ 09:41AM Visit Date: Jan, @ 14:30 - CWM/NO/TAB/NANCY 1 MHTC not assigned TEAM MEMBERS: ALIZA CRUZ: PSYCHIATRIST MENTAL HEALTH DIAGNOSES AND RELEVANT MEDICAL CONDITIONS: Cognitive disorder ([facility] [id number]) Depressive disorder SIGNIFICANT PSYCHOSOCIAL AND CONTEXTUAL FACTORS: Living Circumstance TREATMENT PLAN: Problem: Depression Goal: Reduction in sx of depression Objective: PHQ9<6 Projected Target Date: 05/28/2022 Intervention: Psychopharm, therapy Providers: ALIZA CRUZ Time Frame: One time every 2 months for 5 months Treating Specialty: Mental Health Clinic Renewal Date: 01/26/2023 Entered Treatment: 01/26/2022 @ 04:40PM Anticipated Discharge: None Actual Discharge: None /nick/ ALIZA CRUZ PSYCHIATRIST Signed: 02/15/2024 09:41 ALIZA CRUZ [facility] Feb 14, 2024 02:36 PM PSYCHIATRY NOTE: LOCAL TITLE: PSYCHIATRY NOTE STANDARD TITLE: PSYCHIATRY NOTE DATE OF NOTE: FEB 14, 2024@14:36 ENTRY DATE: FEB 14, 2024@14:36:19 AUTHOR: ALIZA CRUZ EXP COSIGNER: URGENCY: STATUS: COMPLETED PSYCHIATRY FOLLOW UP VISIT MARY BEAL is a 83yo MARITAL STATUS - WHITE MALE 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 She reports no major clinical changes. Memory loss continues to progress, vet has no insight into his impairments. He is up late in the night and sleeps late into the day--she would like to try stopping the mirtazapine to see if this helps with morning grogginess. His mood has been stable, with no clear change before of after starting mirtazapine. They have an aide 6 hours a week--they go for a walk 2x/week, and watch TV together. says she is managing at home currently. Their new neighbors are very supportive which helps. No falls out of bed--side rail helps. Showering is still a struggle. Doing ok with dressing and eating. CURRENT MEDICATIONS Active Outpatient Medications (including Supplies): BENZONATATE 100MG CAP TAKE ONE CAPSULE BY MOUTH THREE ACTIVE TIMES DAILY NEEDED FOR COUGH BUPROPION HCL 150MG 12HR SA TAB TAKE [...] R41.9 10/24/2021 TR[place]ON PAULINO HTN - Hypertension ([facility] [id number]) I 06/25/2021 YAZ WALTERS Hyperlipidemia ([facility] [id number]) E78.5 06/25/2021 YAZ WALTERS Sleep Apnea ([facility] [id number]) G47.30 06/25/2021 YAZ WALTERS Basal cell carcinoma of skin C44.91 06/25/2021 YAZ WALTERS Multiple nodules of lung R69. 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 vascular vs. mixed), no prior psychiatric hospitalizations, no suicidality. 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 Has had difficulty with [...] to cognitive decline. PLAN -community consult to neurology--pending -stop mirtazapine -cont bupropion SR 150mg qam for mood and energy -PCP--galantamine for dementia. While vet is waiting for new neurologist, will continue galantamine SR 16mg daily at night. REFILLS/COVERAGE ok for refills of regular meds [...] this [facility] ([facility] and dispensed from another [place] or [facility] facility (remote) as well as [...] and updated. /nick/ ALIZA CRUZ PSYCHIATRIST Signed: 02/15/2024 09:43 [facility]IZ[facility] CRUZ [facility]
--- OUTSIDE RECORDS SUMMARY | 2024-05-17 16:16 | XMS_ITS ---
Author Name [facility] [place] [facility] [place] [facility] [place] Address [address] [place] [address] Care Team Providers Care Wedding Designer Name Role Phone ABDULLAHI LEIGH Primary Care Provider [facility] Insurance Providers: All historical and current [...] BASIC INDIV IDUAL May 31, 2008 [id number] LIAN,THE [place] PATIENT CAREMARK-F EP BCBS PRESCRIPT ION FEP CAREM ARK May 31, 2010 [id number] [phone] LIAN,THE [place] PATIENT MEDICARE (WNR) MEDICARE (M) PART A Jan 29, 2005 PART A [id number] [phone] LIAN,THE [place] PATIENT MEDICARE (WNR) MEDICARE (M) PART A Jan 29, 2005 PART A [id number] LIAN,THE [place] PATIENT Selected Encounter This section includes the information on record at [place] for the Encounter. Date/Time Encounter Type Encounter Description Reason Provider Source Mar 22, 2024 03:30 PM OFFICE O/P EST MOD 30 MIN PRIMARY CARE/MEDICINE ICD-10-CM I26.93 Sing subsegmental throm pulm emblsm w/o acute cor pulmonale LEIGH,WILL [facility] J [facility] Encounter Template Text not used by [place] Assessments - Encounter Diagnoses This section includes the primary and secondary diagnoses documented for the Encounter. Date/Time Primary/Secondary Diagnosis Diagnosis Name Provider Source Apr 07, 2024 02:23 PM PRIMARY Sing subsegmental throm pulm emblsm w/o acute cor pulmonale LEIGH,WILL TOM J [place] [facility] [place] Apr 07, 2024 02:23 PM SECONDARY Esophagitis, unspecified without bleeding LEIGH,WILL [facility] [place] [facility] Apr 07, 2024 02:23 PM SECONDARY Essential (primary) hypertension LEIGH,WILL [facility] [place] [facility] Apr 07, 2024 02:23 PM SECONDARY Unsp dementia, moderate, with other behavioral disturb [facility] [place] [facility] Plan of Treatment: Future Appointments (+ 6 months) and Future Tests (+/- 45 days) The Plan of Treatment section includes future care activities for the patient from all [place] [facility] This section includes future appointments and future orders which are active, pending or scheduled. Future Appointments This section includes appointments that were scheduled to occur 6 months from the date of the Encounter, up to a maximum of 20 appointments. The data comes from all [place] treatment facilities. Appointment Date/Time Appointment Type Appointme nt Facility Name Mar 27, 2024 02:00 PM AMBULATORY - NONE [place] [facility] [place] [facility] Apr 19, 2024 02:00 PM AMBULATORY - NONE [place] [facility] [place] [facility] Jun 12, 2024 03:00 PM AMBULATORY - PSYCHIATRY [place] [facility] [place] [facility] Jun 22, 2024 03:00 PM AMBULATORY - MEDICINE [place] [facility] [place] [facility] Jun 28, 2024 02:00 PM AMBULATORY - NONE [place] [facility] [place] [facility] Jul 03, 2024 02:00 PM AMBULATORY - MEDICINE [facility] Lab Results: +/- 30 days of the encounter This section includes the Chemistry and Hematology Lab Results on record with [place] for the patient. Radiology Reports and Pathology [...] Mar 22, 2024 04:00 PM Reporting Lab: [address] [address] Performing Lab: [address] [address] CREATININE, Serum 1.49 mg/dL H 0.50-1.40 eGFR(CKD-EPI 2020) 46 mL/min L >60 Mar 22, 2024 04:15 PM [facility] LIVER FUNCTION Specimen Type: SERUM No comment entered. Ordering Provider: SOTO LEIGH Report Released Date/Time: Mar 22, 2024 04:00 PM Reporting Lab: [address] [address] Performing Lab: [address] [address] PROTEIN,TOTAL 6.9 g/dL 6.0-8.3 ALBUMIN 4.0 g/dL 3.5-5.0 ALKALINE PHOSPHATASE 49 U/L 40-150 AST 16 U/L 5-34 ALT 25 U/L BILIRUBIN, TOTAL 0.8 mg/dL 0.2-1.2 Mar 22, 2024 04:15 PM [facility] CBC Specimen Type: BLOOD No comment entered. Ordering Provider: SOTO LEIGH Report Released Date/Time: Mar 22, 2024 04:00 PM Reporting Lab: [address] [address] Performing Lab: [facility] [address] [facility] [address] WBC 7.17 10*3/uL 4.50-11.00 RBC 5.39 10*6/uL 4.23-5.66 HGB 14.5 g/dL 12.8-17 HCT 44.1 39.2-50.4 MCV 81.8 fL L 82-99 MCHC 32.9 g/dL 30.8-35.1 PLT 223 10*3/uL 140-360 RDW-CV 14.4 12.0-16.0 MCH 26.9 pg 26.2-32.6 Mar 22, 2024 04:15 PM [facility] PT & INR (COUMADIN) Specimen Type: PLASMA No comment entered. Ordering Provider: SOTO LEIGH Report Released Date/Time: Mar 22, 2024 04:00 PM Reporting Lab: [address] [address] Performing Lab: [address] [address] INR 1.2 PROTIME 13.0 s 10.0-13.1 Vital Signs: All taken on the encounter date This section contains inpatient and outpatient Vital Signs collected on the date of the Encounter. Date/Time Temperature Pulse Blood Pressure Respiratory Rate SP02 Pain Height Weight Body Mass Index Source Mar 22, 2024 03:39 PM 97.1 77 138/78 20 95 0 71 180 25 [facility] Social History: Smoking Status (Most current) and Tobacco Use (All prior to encounter date) This section includes the most current, and the historical, smoking and tobacco- related health factors from the [place] facility where the Encounter took place. Current Smoking Status This section includes the most current smoking, or tobacco-related health factor, from the [place] facility where the Encounter took place. Date/Time Current Smoking Status Comment Facil ity Jan 06, 2024 02:00 PM VA-TOBACCO QUIT 15 YRS OR MORE [facility] Tobacco Use History This section includes a history of the smoking, or tobacco-related health factors, that were collected on or before the date of the Encounter. The data comes from the [place] facility where the Encounter took place. Date/Time Smoking Status/Tobacco Use Comment F acility Jan 06, 2024 02:00 PM VA-TOBACCO QUIT [facility] YRS OR MORE [facility] Oct 29, 2022 03:30 PM VA-TOBACCO [facility]ER [facility] Oct 29, 2022 03:30 PM VA-TOBACCO QUIT 15 YRS OR [facility] May 21, 2021 07:21 PM [facility]-TOBACCO [facility] May 21, 2021 07:21 PM VA-TOBACCO QUIT 15 YRS OR MORE [facility] Radiology Reports: +/- 30 days of [...] the Encounter. The data comes from all [place] treatment facilities. 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 Multiple transverse and longitudinal grayscale, color Doppler and spectral Doppler images were obtained. Vessel patency was determined using a combination of compressibility, waveform analysis and augmentation where technically feasible. 46 images were received by the [place] National Teleradiology Program (NTP) for interpretation. FINDINGS: [...] LISTED ABOVE. READING PHYSICIAN: Maynor Ghotra M.D. -[id number] 03/28/2024 0:07 MDT [facility] National Teleradiology Program [phone] (For Medical Practitioner Use Only) Attention Patients / Veterans: If you have questions or concerns about these test results, please contact your ordering provider or primary care team. Primary Diagnostic Code: NO ALERT REQUIRED Primary Interpreting Staff: RADIOLOGY,OUTSIDE SERVICE, Staff Physician / RADIOLOGY,OUTSIDE SERVICE [facility] Encounter Notes: All associated encounter notes This section contains the clinical notes associated to the Encounter. Date/Time Encounter Note(s) Provider Source Apr 18, 2024 02:04 PM PRIMARY CARE NURSE PRACTITIONER OUTPATIENT NOTE: LOCAL TITLE: NURSE PRACTITIONER OUTPATIENT NOTE STANDARD TITLE: PRIMARY CARE NURSE PRACTITIONER OUTPATIENT NOTE DATE OF NOTE: APR 18, 2024@14:04 ENTRY DATE: APR 18, 2024@14:04:17 AUTHOR: ABDULLAHI LEIGH EXP COSIGNER: URGENCY: STATUS: COMPLETED Paper work for [facility], complete. is aware and will come get it. /nick/ Abdullahi Leigh DNP, YOUTH WORKER-BC, CNL Primary Care Nurse Practitioner Signed: 04/18/2024 14:10 ABDULLAHI LEIGH [facility] Mar 28, 2024 07:52 AM ADDENDUM: LOCAL TITLE: Addendum STANDARD TITLE: ADDENDUM DATE OF NOTE: MAR 28, 2024@07:52:03 ENTRY DATE: MAR 28, 2024@07:52:04 AUTHOR: ABDULLAHI LEIGH EXP COSIGNER: URGENCY: STATUS: COMPLETED please let know, u/s of lower extremities looks ok. Continue with medication as discussed. thank you. /nick/ Abdullahi Leigh DNP, YOUTH WORKER-BC, CNL Primary Care Nurse Practitioner Signed: 03/28/2024 07:52 Receipt Acknowledged By: 03/28/2024 09:41 /es/ ISABELLE MATTHEWS REGISTERED NURSE for ISABELLE BLAKE ====== --- Original Document --- 03/22/24 NURSE PRACTITIONER OUTPATIENT NOTE: Chief complaint: Patient is a 84 year old . HPI: Pleasant male here with his . He has dementia, she is the caregiver. They were in [place] for their daughter's wedding during which he became nauseous, vomited, diarrhea and had chest pain. He was seen in ER and was dx with a PE and esophagitis on 03/09/2024. They recommended eliquis and omeprazole, neither of which were started as of today. reports she is concerned because he has had bloody noses in the past and she worries about excessive bleeding. We discussed this and the risk without medication including AL and stroke. She notes he has not had a bloody nose in some time. After discussion, is in agreement with initiating A/C for a 3 month course. We will also get an ultrasound of legs as this was not done while in the ER. He will also start PPI after discussion of bleeding risk with untreated esophagitis. Allergies: Patient has answered NKA The following VA and Non-VA meds were reconciled with patient. The patient was educated on the use of the medications including indication and side effects. Active and Recently Outpatient Medications (excluding Supplies): Active Outpatient Medications Status = 1) BUPROPION HCL 150MG 12HR SA TAB TAKE ONE TABLET BY ACTIVE MOUTH EVERY MORNING MOOD 2) GALANTAMINE HYDROBROMIDE 16MG SA CAP TAKE ONE CAPSULE ACTIVE BY MOUTH EVERY MORNING (TAKE IN THE MORNING, PREFERABLY WITH FOOD)FOR ALZHEIMER'S DEMENTIA 3) OMEPRAZOLE 20MG EC CAP TAKE ONE CAPSULE BY MOUTH ACTIVE EVERY MORNING 30 MINUTES BEFORE BREAKFAST Inactive Outpatient Medications Status = 1) BENZONATATE 100MG CAP TAKE ONE CAPSULE BY MOUTH THREE TIMES DAILY NEEDED FOR COUGH Active Non-VA Medications Status = 1) Non-VA LOSARTAN 50MG TAB 50MG BY MOUTH ONCE DAILY ACTIVE 5 Total Medications Review of Systems: Constitutional: (-)for Fevers, chills, weakness, nights sweats On examination: 97.1 F [36.2 C] (03/22/2024 15:39)138/78 (03/22/2024 15:39)77 (03/22/2024 15:39)20 (03/22/2024 15:39)0 (03/22/2024 15:39)BMI: 25.2180 lb [81.65 kg] (03/22/2024 15:39) [place] is alert and oriented X3 Cardiovasc: 2plus carotids without bruits, no JVD [...] the source for the followin. Dementia - is caregiver 2. HTN - Hypertension ([facility] [id number]) - well controlled 3. PE - see above 4. esophagitis - see above Review of medial record = 5mins Time spent with Patient including shared decision making = 25 mins Post visit documentation = 5mins Total time = 35 mins Follow up visit in 3 mos. Medication Reconciliation: Outpatient: Has the patient been taking medications as documented in the EMLR? YES: The patient has been taking medications as documented in the EMLR. Essential Medication List for Review used to complete this medication reconciliation. INCLUDED IN THIS LIST: Alphabetical list of active outpatient prescriptions dispensed from this [place] (local) and dispensed from another VA or [...] or non-VA provider. /nick/ Abdullahi Leigh DNP, YOUTH WORKER-BC, CNL Primary Care Nurse Practitioner Signed: 03/23/2024 07:10 03/28/2024 ADDENDUM STATUS: COMPLETED Rn called and updated about above no questions. /es/ ISABELLE MATTHEWS REGISTERED NURSE Signed: 03/28/2024 08:58 ABDULLAHI LEIGH [place] [facility] [place] [facility] Mar 22, 2024 03:30 PM PRIMARY CARE NURSE PRACTITIONER OUTPATIENT NOTE: LOCAL TITLE: NURSE PRACTITIONER OUTPATIENT NOTE STANDARD TITLE: PRIMARY CARE NURSE PRACTITIONER OUTPATIENT NOTE DATE OF NOTE: MAR 22, 2024@15:30 ENTRY DATE: MAR 23, 2024@06:56:06 AUTHOR: ABDULLAHI LEIGH EXP COSIGNER: URGENCY: STATUS: COMPLETED NURSE PRACTITIONER OUTPATIENT NOTE Has ADDENDA Chief complaint: Patient is a 84 year old . HPI: Pleasant male here with his . He has dementia, she is the caregiver. They were in [place] for their daughter's wedding during which he became nauseous, vomited, diarrhea and had chest pain. He was seen in ER and was dx with a PE and esophagitis on 03/09/2024. They recommended eliquis and omeprazole, neither of which were started as of today. reports she is concerned because he has had bloody noses in the past and she worries about excessive bleeding. We discussed this and the risk without medication including AL and stroke. She notes he has not had a bloody nose in some time. After discussion, is in agreement with initiating A/C for a 3 month course. We will also get an ultrasound of legs as this was not done while in the ER. He will also start PPI after discussion of bleeding risk with untreated esophagitis. Allergies: Patient has answered NKA The following VA and Non-VA meds were reconciled with patient. The patient was educated on the use of the medications including indication and side effects. Active and Recently Outpatient Medications (excluding Supplies): Active Outpatient Medications Status = 1) BUPROPION HCL 150MG 12HR SA TAB TAKE ONE TABLET BY ACTIVE MOUTH EVERY MORNING MOOD 2) GALANTAMINE HYDROBROMIDE 16MG SA CAP TAKE ONE CAPSULE ACTIVE BY MOUTH EVERY MORNING (TAKE IN THE MORNING, PREFERABLY WITH FOOD)FOR ALZHEIMER'S DEMENTIA 3) OMEPRAZOLE 20MG EC CAP TAKE ONE CAPSULE BY MOUTH ACTIVE EVERY MORNING 30 MINUTES BEFORE BREAKFAST Inactive Outpatient Medications Status = 1) BENZONATATE 100MG CAP TAKE ONE CAPSULE BY MOUTH THREE TIMES DAILY NEEDED FOR COUGH Active Non-VA Medications Status = 1) Non-VA LOSARTAN 50MG TAB 50MG BY MOUTH ONCE DAILY ACTIVE 5 Total Medications Review of Systems: Constitutional: (-)for Fevers, chills, weakness, nights sweats On examination: 97.1 F [36.2 C] (03/22/2024 15:39)138/78 (03/22/2024 15:39)77 (03/22/2024 15:39)20 (03/22/2024:39)0 (03/22/2024:39)BMI: 25.2180 lb [81.65 kg] (03/22/2024:39) is alert and oriented X3 Cardiovasc: 2plus carotids without bruits, no JVD [...] the source for the followin. Dementia - is caregiver 2. HTN - Hypertension ([facility] [id number]) - well controlled 3. PE - see above 4. esophagitis - see above Review of medial record = 5mins Time spent with Patient including shared decision making = 25 mins Post visit documentation = 5mins Total time = 35 mins Follow up visit in 3 mos. Medication Reconciliation: Outpatient: Has the patient [...] with a VA or non-VA provider. /nick/ KAYLA Holm DNP, WANDA Primary Care Nurse Practitioner Signed: 03/23/2024 07:10 03/28/2024 ADDENDUM STATUS: COMPLETED please let know, u/s of lower extremities looks ok. Continue with medication as discussed. thank you. /KAYLA Rodríguez DNP, WANDA Primary Care Nurse Practitioner Signed: 03/28/2024 07:52 Receipt Acknowledged By: * AWAITING SIGNATURE * ISABELLE BLAKE 03/28/2024 ADDENDUM STATUS: COMPLETED Rn called and updated about above no questions. /nick/ ISABELLE MATTHEWS REGISTERED NURSE Signed: 03/28/2024 08:58 A[facility]ULLAHI LEIGH [facility]
--- OUTSIDE RECORDS SUMMARY | 2024-05-17 16:16 | XMS_ITS | Encounter Summary ---
Author Name [facility] [place] Organization [facility] [place] Address [address] [place] [id number] Care Team Providers Care Profiling Machine Set Up Operator Tool Name Role Phone ABDULLAHI LEIGH Primary Care Provider [facility] Insurance Providers: All historical and current Section [...] BASIC INDIV IDUAL May 31, 2008 [id number] LIAN,THE [place] PATIENT CAREMARK-F EP BCBS PRESCRIPT ION FEP CAREM ARK May 31, 2010 [id number] LIAN,THE [place] PATIENT MEDICARE (WNR) MEDICARE (M) PART A Jan 29, 2005 PART A [id number] LIAN,THE [place] PATIENT MEDICARE (WNR) MEDICARE (M) PART A Jan 29, 2005 PART A [id number] [phone] LIAN,THE [place] PATIENT Selected Encounter This section includes the information on record at [place] for the Encounter. Date/Time Encounter Type Encounter Description Reason Pro vider Source Mar 20, 2024 02:17 PM Outpatient Encounter TELEPHONE PRIMARY CARE IHE Encounter Template Text not used by [place] Plan of Treatment: Future Appointments (+ 6 months) and Future Tests (+/- 45 days) The Plan of Treatment section includes future care activities for the patient from all [place] treatmentfacilities. This section includes future appointments and future orders which are active, pending or scheduled. Future Appointments This section includes appointments that were scheduled to occur 6 months from the date of the Encounter, up to a maximum of 20 appointments. The data comes from all [place] treatment facilities. Appointment Date/Time Appointment Type Appointme nt Facility Name Mar 22, 2024 03:30 PM AMBULATORY - MEDICINE [place] [facility] Mar 27, 2024 02:00 PM AMBULATORY - NONE [place] [facility] Apr 19, 2024 02:00 PM AMBULATORY - NONE [place] [facility] Jun 12, 2024 03:00 PM AMBULATORY - PSYCHIATRY [place] [facility] Jun 22, 2024 03:00 PM AMBULATORY - MEDICINE [place] [facility] Jun 28, 2024 02:00 PM AMBULATORY - NONE [place] [facility] Jul 03, 2024 02:00 PM AMBULATORY - MEDICINE [place] [facility] Lab Results: +/- 30 days of the encounter This section includes the Chemistry and Hematology Lab Results on record with [place] for the patient. Radiology Reports and Pathology Reports are provided separately, in subsequent sections. Lab Results This section contains the Chemistry/Hematology Results that were resulted 30 days before or 30 daysafter the date of the Encounter. Date/Time Source Result Type Result - Unit Interpretation Reference Range Comment Mar 22, 2024 04:15 PM [place] [facility] CREATININE (eGFR 2020) Specimen Type: SERUM No comment entered. Ordering Provider: SOTO LEIGH Report Released Date/Time: Mar 22, 2024 04:00 PM Reporting Lab: [facility] [address] Performing Lab: [facility] [address] [address] CREATININE, Serum 1.49 mg/dL H 0.50-1.40 eGFR(CKD-EPI 2020) 46 mL/min L >60 Mar 22, 2024 04:15 PM [facility] LIVER FUNCTION Specimen Type: SERUM No comment entered. Ordering Provider: SOTO LEIGH Report Released Date/Time: Mar 22, 2024 04:00 PM Reporting Lab: [address] [address] Performing Lab: [place] [id number] PROTEIN,TOTAL 6.9 g/dL 6.0-8.3 ALBUMIN 4.0 g/dL 3.5-5.0 ALKALINE PHOSPHATASE 49 U/L 40-150 AST 16 U/L 5-34 ALT 25 U/L BILIRUBIN, TOTAL 0.8 mg/dL 0.2-1.2 Mar 22, 2024 04:15 PM [facility] CBC Specimen Type: BLOOD No comment entered. Ordering Provider: SOTO LEIGH Report Released Date/Time: Mar 22, 2024 04:00 PM Reporting Lab: [address] [address] Performing Lab: [address] [address] WBC 7.17 10*3/uL 4.50-11.00 RBC 5.39 10*6/uL 4.23-5.66 HGB 14.5 g/dL 12.8-17 HCT 44.1 39.2-50.4 MCV 81.8 fL L 82-99 MCHC 32.9 g/dL 30.8-35.1 PLT 223 10*3/uL 140-360 RDW-CV 14.4 12.0-16.0 MCH 26.9 pg 26.2-32.6 Mar 22, 2024 04:15 PM [facility] PT & INR (COUMADIN) Specimen Type: PLASMA No comment entered. Ordering Provider: SOTO LEIGH Report Released Date/Time: Mar 22, 2024 04:00 PM Reporting Lab: [facility] [address] [address] Performing Lab: [facility] [address] [address] INR 1.2 PROTIME 13.0 s 10.0-13.1 Social History: Smoking Status (Most current) and Tobacco Use (All prior to encounter date) This section includes the most current, and the historical, smoking and tobacco- related health factors from the [place] facility where the Encounter took place. Current Smoking Status This section includes the most current smoking, or tobacco-related health factor, from the [place] facility where the Encounter took place. Date/Time Current Smoking Status Comment Facil ity Jan 06, 2024 02:00 PM [place]-TOBACCO QUIT 15 YRS OR MORE [facility] Tobacco Use History This section includes a history of the smoking, or tobacco-related health factors, that were collected on or before the date of the Encounter. The data comes from the [place] facility where the Encounter took place. Date/Time Smoking Status/Tobacco Use Comment F acility Jan 06, 2024 02:00 PM [place]-TOBACCO QUIT 15 YRS OR MORE [place] [facility] Oct 29, 2022 03:30 PM VA-TOBACCO FORMER USER [place] [facility] Oct 29, 2022 03:30 PM VA-TOBACCO QUIT 15 YRS OR MORE [place] [facility] May 21, 2021 07:21 PM [facility] May 21, 2021 07:21 PM VA-TOBACCO QUIT 15 YRS OR MORE [facility] Radiology Reports: +/- 30 days [...] the Encounter. The data comes from all [place] treatment facilities. Date/Time Radiology Report Provider Source Mar 27, 2024 02:07 PM DUPLEX SCAN:EXTREMITY VEINS, COMPLETE BILATERAL: MARY BEAL [id number] M Ex Date: MAR 27, 2024@14:07 Req Phys: ABDULLAHI LEIGH Loc: CWM/NO/PACT 7 (Req'g Loc) Img Loc: ULTRASOUND Service: Unknown [place] [address] (Case [id number] COMPLETE) DUPLEX SCAN:EXTREMITY VEINS, COMP(US Detailed) CPT:33811 Reason for Study: recent dx of PE Clinical History: Seeking bilat lower extremity Report Status: Verified Date Reported: MAR 28, 2024 Date Verified: MAR 28, 2024 Puncher And Fastener E-Sig: Report: DUPLEX SCAN:EXTREMITY VEINS, COMPLETE BILATERAL HISTORY: recent dx of PE COMPARISON: None TECHNIQUE: Ultrasound of the bilateral lower extremity veins was performed at the local [place] facility. Multiple transverse and longitudinal grayscale, color Doppler and spectral Doppler images were obtained. Vessel patency was determined using a combination of compressibility, waveform analysis and augmentation where technically feasible. 46 images were received by the [place] National Teleradiology Program (NTP) for interpretation. FINDINGS: [...] LISTED ABOVE. READING PHYSICIAN: Maynor Ghotra M.D. -[id number] 03/28/2024 0:07 MDT [facility] National Teleradiology Program [phone] (For Medical Practitioner Use Only) Attention Patients / Veterans: If you have questions or concerns about these test results, please contact your ordering provider or primary care team. Primary Diagnostic Code: NO ALERT REQUIRED Primary Interpreting Staff: RADIOLOGY,OUTSIDE SERVICE, Staff Physician / RADIOLOGY,OUTSIDE SERVICE [facility] Encounter Notes: All associated encounter notes This section contains the clinical notes associated to the Encounter. Date/Time Encounter Note(s) Provider Source Mar 20, 2024 02:17 PM PRIMARY CARE TELEP ABDULLAHI ENCOUNTER NOTE: LOCAL TITLE: TELEPHONE NOTE/PRIMARY CARE STANDARD TITLE: PRIMARY CARE TELEPHONE ENCOUNTER NOTE DATE OF NOTE: MAR 20, 2024@14:17 ENTRY DATE: MAR 20, 2024@14:17:16 AUTHOR: ISABELLE BLAKE COSIGNER: URGENCY: STATUS: COMPLETED TELEPHONE NOTE/PRIMARY CARE Has ADDENDA F: Condition Update D/A: Contacted via by Jim's Tiki ([phone]) who reports Jim was seen at ED while they were on vacation in [place] 03/10/24. She states Jim was advised to F/U with PCP on discharge. She contacts team to request PCP visit. R: AMSA will contact Tiki to schedule. Taken from [facility]: [facility] ED DOS: 03/09/24 HPI: The patient is an 84-year-old man who presents emergency department by EMS and he is joined with his family members. The patient is visiting from [place] for a wedding. They flew in yesterday. This morning the patient had nonbloody vomiting and diarrhea. Later in the afternoon he started complaining of chest pain. The patient has no history of CAD. He has a history of hypertension Alzheimer's dementia. And route he is given full dose aspirin and transported the hospital. Patient denies any current nausea headaches back pain or abdominal pain. MDM: The patient was seen and examined in bed #5 on arrival. Differential diagnosis includes ACS, cardiac dysrhythmia, anemia, Boerhaave's, PE, GERD, versus other. EKG chest x-ray labs have been ordered. He was already given full dose aspirin by EMS. Patient stating very minimal chest pain perhaps 1 out of 10 6 SMA. EKG shows sinus rhythm with first-degree AV block. There are some artifact present however no obvious ST segment elevation to suggest STEMI. Labs are starting to return. His white cell count is 15,000. His H&H is normal. The chemistry panel shows a creatinine 1.6, otherwise unremarkable. His troponin is negative. D-dimer is pending. Portable chest x-ray under my review shows no acute process. Patient will need observation and 3-hour troponin rule out since he came within a few hours of the onset of his symptoms. He was given IV Protonix to see if there is any GERD component to his chest process today given his morning of vomiting. If his D-dimer is elevated he will need a CTA. The patient returned over to Dr. Ansari at 7pm shift change [address] with contrast IMPRESSION: 1. Subsegmental filling defects in the right lower lobe and segmental filling defect in left upper lobe suspicious for pulmonary emboli. Evaluation is degraded by respiratory motion artifact. This finding discussed with Dr. Ansari at 2039 hours on 03/09/2024. 2. Inflammatory stranding surrounding the lower esophagus suggestive of esophagitis. 3. Extensive coronary artery calcification compatible with coronary artery disease No follow up note after shift change After visit summary: Recommend:-For possible subsegmental PE: apixaban (eliquis) 10mg twice daily for 7 days (14 doses) after which do eliquis 5mg twice daily. Usually minimum 2-3 months, will need PCP follow up and ultrasound evaluation of legs outpatient to see if any clots in legs at that time after period treatment.- For esophagitis: Gentle diet, avoid acidic or spicy food, alcohol, other stomach and esophagus irritants as able. Taking a daily famotidine (pepcid) or omeprazole (prilosec) along with as needed tums, maalox for any reflux like symptoms can help as well.-Close PCP follow up when home. /radha Blake MSN RN CNL Primary Care RN Signed: 03/20/2024 14:27 Receipt Acknowledged By: 03/20/2024 15:09 /nick/ Abdullahi Leigh DNP, DIESEL TRAILER MECHANIC-BC, CNL Primary Care Nurse Practitioner 03/21/2024 08:39 /nick/ PEPITO [place] [employer] FURNACE OPERATOR 03/21/2024 ADDENDUM STATUS: COMPLETED spoke to and scheduled appointment. /nick/ PEPITO [place] ADVANCED OXYGEN FURNACE OPERATOR Signed: 03/21/2024 08:40 ISABELLE BLAKE [facility]
--- OUTSIDE RECORDS SUMMARY | 2024-05-17 16:17 | XMS_ITS | Encounter Summary ---
Author Name [facility] [place] Organization [place] Address [address] [place] [id number] Care Team Providers Care Machine Cage Maker Name Role Phone YAZ LEIGH Primary Care Provider [facility] Insurance Providers: All historical and current [...] BASIC INDIV IDUAL May 31, 2008 [id number] LIAN,THE [place] PATIENT CAREMARK-F EP BCBS PRESCRIPT ION FEP CAREM ARK May 31, 2010 [id number] LIAN,THE [place] PATIENT MEDICARE (WNR) MEDICARE (M) PART A Jan 29, 2005 PART A [id number] LIAN,THE [place] PATIENT MEDICARE (WNR) MEDICARE (M) PART A Jan 29, 2005 PART A [id number] LIAN,THE [place] PATIENT Selected Encounter This section includes the information on record at [place] for the Encounter. Date/Time Encounter Type Encounter Description Reason Provider Source Apr 24, 2024 09:08 AM Outpatient Encounter PRIMARY CARE/MEDICINE LUCÍA BLAKE Adán Encounter Template Text not used by [place] Plan of Treatment: Future Appointments (+ 6 months) and Future Tests (+/- 45 days) The Plan of Treatment section includes future care activities for the patient from all [place] treatmentfatri[facility]. This section includes future appointments and future orders which are active, pending or scheduled. Future Appointments This section includes appointments that were scheduled to occur 6 months from the date of the Encounter, up to a maximum of 20 appointments. The data comes from all [place] treatment facilities. Appointment Date/Time Appointment Type Appointme nt Facility Name Jun 12, 2024 03:00 PM [facility] [place] [facility] Jun 22, 2024 03:00 PM [facility]UL[facility] - MEDICINE [facility] [place] [facility] Jun 28, 2024 02:00 PM [facility]BULATORY - NONE [place] [facility] Jul 03, 2024 02:00 PM [facility]BULATORY - MEDICINE [facility] Social History: Smoking Status (Most current) and Tobacco Use (All prior to encounter date) This section includes the most current, and the historical, smoking and tobacco- related health factors from the [place] facility where the Encounter took place. Current Smoking Status This section includes the most current smoking, or tobacco-related health factor, from the [place] facility where the Encounter took place. Date/Time Current Smoking Status Comment Facil ity Jan 06, 2024 02:00 PM [place]-TOBACCO QUIT 15 YRS OR MORE [facility] Tobacco Use History This section includes a history of the smoking, or tobacco-related health factors, that were collected on or before the date of the Encounter. The data comes from the [place] facility where the Encounter took place. Date/Time Smoking Status/Tobacco Use Comment F acility Jan 06, 2024 02:00 PM [place]-TOBACCO QUIT 15 YRS OR MORE [place] [facility] [place] [facility] Oct 29, 2022 03:30 PM VA-TOBACCO FORMER USER [place] [facility] Oct 29, 2022 03:30 PM VA-TOBACCO QUIT 15 YRS OR MORE [facility] May 21, 2021 07:21 PM [place]-TOBACCO FORMER USER [facility] May 21, 2021 07:21 PM [place]-TOBACCO QUIT 15 YRS OR MORE [facility] Radiology Reports: +/- 30 days of [...] the Encounter. The data comes from all [place] treatment facilities. Date/Time Radiology Report Provider Source Mar 27, 2024 02:07 PM DUPLEX SCAN:EXTREMITY VEINS, COMPLETE BILATERAL: MARY BEAL [id number] -[id number] M Exm Date: MAR 27, 2024@14:07 Req Phys: YAZ LEIGH Loc: CWM/NO/PACT 7 (Req'g Loc) Img Loc: ULTRASOUND Service: [place] [address] (Case 68 COMPLETE) DUPLEX SCAN:EXTREMITY VEINS, COMP(US Detailed) CPT:55270 Reason for Study: recent dx of PE Clinical History: Seeking bilat lower extremity Report Status: Verified Date Reported: MAR 28, 2024 Date Verified: MAR 28, 2024 Galvanizer E-Sig: Report: DUPLEX SCAN:EXTREMITY VEINS, COMPLETE BILATERAL HISTORY: recent dx of PE COMPARISON: None TECHNIQUE: Ultrasound of the bilateral lower extremity veins was performed at the local [place] facility. Multiple transverse and longitudinal grayscale, color Doppler and spectral Doppler images were obtained. Vessel patency was determined using a combination of compressibility, waveform analysis and augmentation where technically feasible. 46 images were received by the [place] National Teleradiology Program (NTP) for interpretation. FINDINGS: [...] LISTED ABOVE. READING PHYSICIAN: Maynor Ghotra M.D. -[id number] 03/28/2024 0:07 MDT [facility] National Teleradiology Program [phone] (For Medical Practitioner Use Only) Attention Patients / Veterans: If you have questions or concerns about these test results, please contact your ordering provider or primary care team. Primary Diagnostic Code: NO ALERT REQUIRED Primary Interpreting Staff: RADIOLOGY,OUTSIDE SERVICE, Staff Physician / RADIOLOGY,OUTSIDE SERVICE [facility] Encounter Notes: All associated encounter notes This section contains the clinical notes associated to the Encounter. Date/Time Encounter Note(s) Provider Source Apr 24, 2024 09:09 AM ADDENDUM: LOCAL TITLE: Addendum STANDARD TITLE: ADDENDUM DATE OF NOTE: APR 24, 2024@09:09:11 ENTRY DATE: APR 24, 2024@09:09:11 AUTHOR: ISABELLE BLAKE EXP COSIGNER: URGENCY: STATUS: COMPLETED Alert to PCP for above SM Request. Vet has been getting this med called in by PCP to, last done 04/06/23 (See CC note for details) : TRANSFER RX TO: [facility] [employer] @ [place]: RE: PATIENT'S STATES THAT PATIENT WOULD NOW LIKE TO USE [email or web address] FOR MEDICATION PURCHASE. PLEASE TRANSFER RX TO [facility] [place]. LOSARTAN POTASSIUM TAB 50MG TAKE ONE TABLET BY MOUTH ONCE DAILY FOR BLOOD PRESSURE/HEART Quantity: 90 Refills: 3 /es/ Isabelle Blake MSN RN CNL Primary Care RN Signed: 04/24/2024 09:10 Receipt Acknowledged By: 04/24/2024 12:40 /es/ Yaz Leigh DNP, FRAME STYLIST-BC, CNL Primary Care Nurse Practitioner ====== --- Original Document --- 04/24/24 PRIMARY CARE SECURE MESSAGING: ------Original Message ------- Sent: 04/23/2024 11:14 PM ET From: MARY BEAL To: Earnestine LEIGH_PRIMARY CARE_[facility] Subject: Medication:Renew medication Billy's prescription for Losartan has no refills. Please send a new prescription to [facility], [address] [place] [address]. Losartan 50mg tab, 90 day supply with refills. Thank you Jada Lian [phone] ------Original Message ------- Sent: 04/24/2024 09:08 AM ET From: ISABELLE BLAKE To: MARY BEAL Subject: Medication:Renew medication Good morning Jada, I will alert Dr. Leigh to your request. Respectfully, Isabelle Blake RN /es/ Isabelle Blake MSN RN CNL Primary Care RN Signed: 04/24/2024 09:08 04/24/2024 ADDENDUM STATUS: UNSIGNED You may not VIEW this UNSIGNED Addendum. ISABELLE BLAKE [facility] [place] [facility] Apr 24, 2024 09:08 AM PRIMARY CARE SECUR E MESSAGING: LOCAL TITLE: PRIMARY CARE SECURE MESSAGING STANDARD TITLE: PRIMARY CARE SECURE MESSAGING DATE OF NOTE: APR 24, 2024@09:08 ENTRY DATE: APR 24, 2024@09:08:59 AUTHOR: ISABELLE BLAKE EXP COSIGNER: URGENCY: STATUS: COMPLETED PRIMARY CARE SECURE MESSAGING Has ADDENDA ------Original Message ------- Sent: 04/23/2024 11:14 PM ET From: MARY BEAL To: Earnestine LEIGH_PRIMARY CARE_[facility] Subject: Medication:Renew medication Billy's prescription for Losartan has no refills. Please send a new prescription to [facility], [address] [place], [place] [address]Jen [place]. Losartan 50mg tab, 90 day supply with refills. Thank you Jada Beal [phone] ------Original Message ------- Sent: 04/24/2024 09:08 AM ET From: ISABELLE BLAKE To: LIAN MARY NELLAFADY Subject: Medication:Renew medication Good morning Jada, I will alert Dr. Leigh to your request. Respectfully, Isabelle Blake RN /nick/ Isabelle Blake MSN RN CNL Primary Care RN Signed: 04/24/2024 09:08 04/24/2024 ADDENDUM STATUS: COMPLETED Alert to PCP for above SM Request. Vet has been getting this med called in by PCP to, last done 04/06/23 (See CC note for details) : TRANSFER RX TO: [facility] [employer] @ [facility]: RE: PATIENT'S STATES THAT PATIENT WOULD NOW LIKE TO USE [email or web address] FOR MEDICATION PURCHASE. PLEASE TRANSFER RX TO [facility] [employer] @ [facility]. LOSARTAN POTASSIUM TAB 50MG TAKE ONE TABLET BY MOUTH ONCE DAILY FOR BLOOD PRESSURE/HEART Quantity: 90 Refills: 3 /nick/ Isabelle CAZARES RN CNL Primary Care RN Signed: 04/24/2024 09:10 Receipt Acknowledged By: 04/24/2024 12:40 /nick/ KAYLA Holm DNP, WANDA Primary Care Nurse Practitioner 04/24/2024 ADDENDUM STATUS: COMPLETED rx called in. /nick/ KAYLA Holm DNP, WANDA Primary Care Nurse Practitioner Signed: 04/24/2024 12:41 ISABELLE BLAKE [facility]
--- OUTSIDE RECORDS SUMMARY | 2024-05-17 16:17 | XMS_ITS | Encounter Summary ---
Author Name [place] Address [address] [place] [address] Care Team Providers Care Solution Professional Name Role Phone YAZ LEIGH Primary Care Provider Unavailjason [facility] Insurance Providers: All historical and [...] BASIC INDIV IDUAL May 31, 2008 [id number] LIAN,THE [place] PATIENT CAREMARK-F EP BCBS PRESCRIPT ION FEP CAREM ARK May 31, 2010 [id number] [phone] LIAN,THE [place] PATIENT MEDICARE (WNR) MEDICARE (M) PART A Jan 29, 2005 PART A [id number] LIAN,THE [place] PATIENT MEDICARE (WNR) MEDICARE (M) PART A Jan 29, 2005 PART A [id number] LIAN,THE [place] PATIENT Selected Encounter This section includes the information on record at [place] for the Encounter. Date/Time Encounter Type Encounter Description Reason Pro vider Source Apr 17, 2024 03:24 PM Outpatient Encounter PRIMARY CARE/MEDICINE IHE Encounter Template Text not used by [place] Plan of Treatment: Future Appointments (+ 6 months) and Future Tests (+/- 45 days) The Plan of Treatment section includes future care activities for the patient from all [place] treatmentfacilities. This section includes future appointments and future orders which are active, pending or scheduled. Future Appointments This section includes appointments that were scheduled to occur 6 months from the date of the Encounter, up to a maximum of 20 appointments. The data comes from all [place] treatment facilities. Appointment Date/Time Appointment Type Appointme nt Facility Name Apr 19, 2024 02:00 PM [facility] Jun 12, 2024 03:00 PM AMBULATORY - PSYCHIATRY [facility] W[facility]N [facility] Jun 22, 2024 03:00 PM AMBULATORY - MEDICINE [facility] NTRL TRN [facility] Jun 28, 2024 02:00 PM [facility] Jul 03, 2024 02:00 PM [facility] Lab Results: +/- 30 days of the encounter This section includes the Chemistry and Hematology Lab Results on record with [place] for the patient. Radiology Reports and Pathology Reports are provided separately, in subsequent sections. Lab Results This section contains the Chemistry/Hematology Results that were resulted 30 days before or 30 daysafter the date of the Encounter. Date/Time Source Result Type Result - Unit Interpretation Reference Range Comment Mar 22, 2024 04:15 PM [facility] CREATININE (eGFR 2020) Specimen Type: SERUM No comment entered. Ordering Provider: SOTO LEIGH Report Released Date/Time: Mar 22, 2024 04:00 PM Reporting Lab: [facility] [address] [facility] [address] Performing Lab: [address] [address] CREATININE, Serum 1.49 mg/dL H 0.50-1.40 eGFR(CKD-EPI 2020) 46 mL/min L >60 Mar 22, 2024 04:15 PM [facility] LIVER FUNCTION Specimen Type: SERUM No comment entered. Ordering Provider: SOTO LEIGH Report Released Date/Time: Mar 22, 2024 04:00 PM Reporting Lab: [facility] [address] [facility] [address] Performing Lab: [address] [address] PROTEIN,TOTAL 6.9 g/dL 6.0-8.3 ALBUMIN 4.0 g/dL 3.5-5.0 ALKALINE PHOSPHATASE 49 U/L 40-150 AST 16 U/L 5-34 ALT 25 U/L BILIRUBIN, TOTAL 0.8 mg/dL 0.2-1.2 Mar 22, 2024 04:15 PM [facility] PT & INR (COUMADIN) Specimen Type: PLASMA No comment entered. Ordering Provider: SOTO LEIGH Report Released Date/Time: Mar 22, 2024 04:00 PM Reporting Lab: [facility] [address] [facility] [address] Performing Lab: [address] [address] INR 1.2 PROTIME 13.0 s 10.0-13.1 Mar 22, 2024 04:15 PM [facility] CBC Specimen Type: BLOOD No comment entered. Ordering Provider: SOTO LEIGH Report Released Date/Time: Mar 22, 2024 04:00 PM Reporting Lab: [facility] [address] [facility] [address] Performing Lab: [address] [address] WBC 7.17 10*3/uL 4.50-11.00 RBC 5.39 10*6/uL [...] and tobacco- related health factors from the [place] facility where the Encounter took place. Current Smoking Status This section includes the most current smoking, or tobacco-related health factor, from the [place] facility where the Encounter took place. Date/Time Current Smoking Status Comment Facil ity Jan 06, 2024 02:00 PM [facility] Tobacco Use History This section includes a history of the smoking, or tobacco-related health factors, that were collected on or before the date of the Encounter. The data comes from the [place] facility where the Encounter took place. Date/Time Smoking Status/Tobacco Use Comment F acility Jan 06, 2024 02:00 PM [place]-TOBACCO QUIT 15 YRS OR MORE [place] [facility] Oct 29, 2022 03:30 PM VA-TOBACCO FORMER USER [place] [facility] Oct 29, 2022 03:30 PM VA-TOBACCO QUIT 15 YRS OR MORE [place] [facility] [facility] May 21, 2021 07:21 PM VA-TOBACCO FORMER USER [place] [facility] May 21, 2021 07:21 PM VA-TOBACCO QUIT 15 YRS OR MORE [facility] WSN [facility] Radiology Reports: +/- 30 days of the [...] the Encounter. The data comes from all [place] treatment facilities. Date/Time Radiology Report Provider Source Mar 27, 2024 02:07 PM DUPLEX SCAN:EXTREMITY VEINS, COMPLETE BILATERAL: MARY BEAL DARRION [id number] -1940 M Ex Date: MAR 27, 2024@14:07 Req Phys: YAZ LEIGH Loc: CWM/NO/PACT 7 (Req'g Loc) Img Loc: ULTRASOUND Service: Unknown [facility] [place], [place] [id number] (Case 68 COMPLETE) DUPLEX SCAN:EXTREMITY VEINS, COMP(US Detailed) CPT:64374 Reason for Study: recent dx of PE Clinical History: Seeking bilat lower extremity Report Status: Verified Date Reported: MAR 28, 2024 Date Verified: MAR 28, 2024 [employer] Inspector E-Sig: Report: DUPLEX SCAN:EXTREMITY VEINS, COMPLETE BILATERAL HISTORY: recent dx of PE COMPARISON: None TECHNIQUE: Ultrasound of the bilateral lower extremity veins was performed at the local [place] facility. Multiple transverse and longitudinal grayscale, color Doppler and spectral Doppler images were obtained. Vessel patency was determined using a combination of compressibility, waveform analysis and augmentation where technically feasible. 46 images were received by the [place] National Teleradiology Program ([place]P) for interpretation. FINDINGS: [...] LISTED ABOVE. READING PHYSICIAN: Maynor Ghotra M.D. -[phone] 03/28/2024 0:07 MDT [facility] National Teleradiology Program [phone] (For Medical Practitioner Use Only) Attention Patients / Veterans: If you have questions or concerns about these test results, please contact your ordering provider or primary care team. Primary Diagnostic Code: NO ALERT REQUIRED Primary Interpreting Staff: RADIOLOGY,OUTSIDE SERVICE, Staff Physician / RADIOLOGY,OUTSIDE SERVICE [facility] Encounter Notes: All associated encounter notes This section contains the clinical notes associated to the Encounter. Date/Time Encounter Note(s) Provider Source Apr 17, 2024 03:24 PM ADMINISTRATIVE NOTE: LOCAL TITLE: FAX/MAIL RECEIVED STANDARD TITLE: ADMINISTRATIVE NOTE DATE OF NOTE: APR 17, 2024@15:24 ENTRY DATE: APR 17, 2024@15:25:08 AUTHOR: DANNIE CAMACHO EXP COSIGNER: URGENCY: STATUS: COMPLETED FAX/MAIL RECEIVED Has ADDENDA Document Received On: Mar Document Type:[facility] PCP Orders for Signature/ [facility] INFO UPDATE REQUEST Date of Service: Mar Facility and or Provider: Contact Information: PCP of Record: YAZ LEIGH Next visit with PCP: 04/19/2024 14:00 CWM/NO/VVC/NUTR/PRO 06/12/2024 15:00 CWM/NO/MHC/CRUZ 1 06/22/2024 15:00 CWM/NO/PACT 7 07/03/2024 14:00 CWM/NO/PACT 7 Primary Care May keep copies of this document for up to 14 days and send the original for scanning. /nick/ DANNIE CAMACHO AMSA Signed: 04/17/2024 15:30 Receipt Acknowledged By: 04/18/2024 08:19 /nick/ Yaz Leigh DNP, BEVERAGE DISTILLER-BC, CNL Primary Care Nurse Practitioner 04/17/2024 15:46 /es/ Anjelica Ashley MSN RN CNL Primary Care RN 04/17/2024 ADDENDUM STATUS: COMPLETED PLACED IN PACT 7 FOLDER. /radha CAMACHO AMSA Signed: 04/17/2024 15:31 DANNIE CAMACHO [facility]
--- OUTSIDE RECORDS SUMMARY | 2024-05-17 16:17 | XMS_ITS ---
[place] MEDICAL N[place]ITION [place] IN [place] [facility] [facility] Encounter Summary Created on: May 17, 2024 MARY BEAL : 1940 Sex: Male Author Name [facility] [place] Address [address] [place] [id number] Care Team Providers Care Title Camera Operator Name Role Phone YAZ LEIGH Primary Care Provider Unavailjason ble Insurance Providers: All historical and current Section [...] BASIC INDIV IDUAL May 31, 2008 [id number] LIAN,THE [place] PATIENT CAREMARK-F EP BCBS PRESCRIPT ION FEP CAREM ARK May 31, 2010 [id number] LIAN,THE [place] PATIENT MEDICARE (WNR) MEDICARE (M) PART A Jan 29, 2005 PART A [id number] [phone] LIAN,THE [place] PATIENT MEDICARE (WNR) MEDICARE (M) PART A Jan 29, 2005 PART A [id number] LIAN,THE [place] PATIENT Selected Encounter This section includes the information on record at [place] for the Encounter. Date/Time Encounter Type Encounter Description Reason Provider Source Apr 19, 2024 02:00 PM MEDICAL NUTRITION INDIV IN TELEPHONE/ANCILLAR Y ICD-10-CM R63.4 Abnormal weight loss ESTEBANRONY NARAYANJason Jason Adán Encounter Template Text not used by [place] Assessments - Encounter Diagnoses This section includes the primary and secondary diagnoses documented for the Encounter. Date/Time Primary/Secondary Diagnosis Diagnosis Name Provider Source Apr 19, 2024 02:00 PM PRIMARY Abnormal weight loss ESTEBANROBE CRYSTAL Jason [place] [facility] Apr 19, 2024 02:00 PM SECONDARY Body mass index [BMI] 24.0-24.9, adult ESTEBANROBE Murphy [place] [facility] Apr 19, 2024 02:00 PM SECONDARY Dietary counseling and surveillance ROBE ORELLANA CHONANAIS Murphy [place] [facility] [facility] Apr 19, 2024 02:00 PM SECONDARY Dysphagia, pharyngeal phase ROBE ORELLANA CRYSTAL Jason [facility] [place] [facility] Apr 19, 2024 02:00 PM SECONDARY Unsp dementia, moderate, with other behavioral disturb ROBE ORELLANAANAIS Jason [facility] Plan of Treatment: Future Appointments (+ 6 months) and Future Tests (+/- 45 days) The Plan of Treatment section includes future care activities for the patient [facility] [place] [facility] This section includes [...] 12, 2024 03:00 PM AMBULATORY - PSYCHIATRY [place]L [place] [facility] Jun 22, 2024 03:00 PM AMBULATORY - MEDICINE [place] C NTRL [place] [facility] Jun 28, 2024 02:00 PM AMBULATORY - NONE [place]TRL [place] [facility] Jul 03, 2024 02:00 PM AMBULATORY - MEDICINE [facility] NTRL [place] [facility] Lab Results: +/- 30 days of the [...] Range Comment Mar 22, 2024 04:15 PM [facility] CREATININE (eGFR 2020) Specimen Type: SERUM No comment entered. Ordering Provider: SOTO LEIGH Report Released Date/Time: Mar 22, 2024 04:00 PM Reporting Lab: [address] [address] Performing Lab: [address] [address] CREATININE, Serum 1.49 mg/dL H 0.50-1.40 eGFR(CKD-EPI 2020) 46 mL/min L >60 Mar 22, 2024 04:15 PM [facility] LIVER FUNCTION Specimen Type: SERUM No comment entered. Ordering Provider: SOTO LEIGH Report Released Date/Time: Mar 22, 2024 04:00 PM Reporting Lab: [address] [address] Performing Lab: [address] [address] PROTEIN,TOTAL 6.9 g/dL 6.0-8.3 ALBUMIN 4.0 g/dL 3.5-5.0 ALKALINE PHOSPHATASE 49 U/L 40-150 AST 16 U/L 5-34 ALT 25 U/L BILIRUBIN, TOTAL 0.8 mg/dL 0.2-1.2 Mar 22, 2024 04:15 PM [facility] CBC Specimen Type: BLOOD No comment entered. Ordering Provider: SOTO LEIGH Report Released Date/Time: Mar 22, 2024 04:00 PM Reporting Lab: [address] [address] Performing Lab: [address] [address] WBC 7.17 10*3/uL 4.50-11.00 RBC 5.39 10*6/uL 4.23-5.66 HGB 14.5 g/dL 12.8-17 HCT 44.1 39.2-50.4 MCV 81.8 fL L 82-99 MCHC 32.9 g/dL 30.8-35.1 PLT 223 10*3/uL 140-360 RDW-CV 14.4 12.0-16.0 MCH 26.9 pg 26.2-32.6 Mar 22, 2024 04:15 PM [facility] PT & INR (COUMADIN) Specimen Type: PLASMA No comment entered. Ordering Provider: SOTO LEIGH Report Released Date/Time: Mar 22, 2024 04:00 PM Reporting Lab: [address] [address] Performing Lab: [address] [address] INR 1.2 PROTIME 13.0 s 10.0-13.1 Vital Signs: All taken on the encounter date This section contains inpatient and outpatient Vital Signs collected on the date of the Encounter. Date/Time Temperature Pulse Blood Pressure Respiratory Rate SP02 Pain Height Weight Body Mass Index Source Apr 19, 2024 02:45 PM 177 25 [facility] Social History: Smoking Status (Most current) [...] 06, 2024 02:00 PM VA-TOBACCO FORMER USER [facility] Tobacco Use History This section includes a history of the smoking, or tobacco-related health factors, that were collected on or before the date of the Encounter. The data comes from the [place] facility where the Encounter took place. Date/Time Smoking Status/Tobacco Use Comment F acility Jan 06, 2024 02:00 PM [place] QU[place] [facility] YRS OR MORE [facility] Oct 29, 2022 03:30 PM VA-TOBACCO FOR[facility]ER [facility] Oct 29, 2022 03:30 PM VA-TOBACCO QUIT 15 YRS OR MORE [facility] May 21, 2021 07:21 PM VA-TOBACCO FORMER USER [facility] May 21, 2021 07:21 PM VA-TOBACCO QUIT 15 YRS OR MORE [facility] Radiology Reports: +/- 30 days of [...] DUPLEX SCAN:EXTREMITY VEINS, COMPLETE BILATERAL: MARY BEAL [id number] -1940 M Exm Date: MAR 27, 2024@14:07 Req Phys: YAZ LEIGH Loc: CWM/NO/PACT 7 (Req'g Loc) Img Loc: ULTRASOUND Service: [place] [address] (Case 68 COMPLETE) DUPLEX SCAN:EXTREMITY VEINS, COMP(US Detailed) CPT:98990 Reason for Study: recent dx of PE Clinical History: Seeking bilat lower extremity Report Status: Verified Date Reported: MAR 28, 2024 Date Verified: MAR 28, 2024 Relationship Manager E-Sig: Report: DUPLEX SCAN:EXTREMITY VEINS, COMPLETE [...] LISTED ABOVE. READING PHYSICIAN: Maynor Ghotra M.D. -[phone] 03/28/2024 0:07 MDT [facility] National Teleradiology Program [phone] (For Medical Practitioner Use Only) Attention Patients / Veterans: If you have questions or concerns about these test results, please contact your ordering provider or primary care team. Primary Diagnostic Code: NO ALERT REQUIRED Primary Interpreting Staff: RADIOLOGY,OUTSIDE SERVICE, Staff Physician / RADIOLOGY,OUTSIDE SERVICE [facility] Encounter Notes: All associated encounter notes This section contains the clinical notes associated to the Encounter. Date/Time Encounter Note(s) Provider Source Apr 19, 2024 02:00 PM NUTRITION DIETETICS CONSULT: LOCAL TITLE: CONSULT REPORT/NUTRITION AND CONCERT MANAGER STANDARD TITLE: NUTRITION DIETETICS CONSULT DATE OF NOTE: APR 19, 2024@14:00 ENTRY DATE: APR 19, 2024@15:59:28 AUTHOR: NOEL ORELLANA COSIGNER: URGENCY: STATUS: COMPLETED NUTRITION ASSESSMENT Reason for Nutrition referral: Unplanned weight lossh/o dementia, is the contact. Losing interestin meals, weight loss noted. She is providing him supplements, please evaluate to see ifthese can be provided from [place] - thank you Primary Diagnosis: Abnormal Weight Loss (R63.4) Secondary Diagnosis: Dietary Surveillance and Counseling (Z71.3) Additional Secondary Diagnosis: Unspecified dementia, moderate, with other behavioral disturbance (ICD-10-CM F03.B18) Dysphagia, pharyngeal phase (ICD-10-CM R13.13) Body mass index [BMI] 24.0-24.9, adult (ICD-10-CM Z68.24) Date of Nutrition Referral: 03/23/24 Referred to Nutrition Clinic By: Arnie Leigh DNP Date of Nutrition Visit: Mar Visit #: 1 Time Spent with Patient: 39 minutes Patient identified using the following two forms of ID: Date of , Patient Full Name This visit was conducted by telephone Jada also participated in visit with patient NUTRITION ASSESSMENT: Client History Medication List Reviewed Food/Drug Interactions: Losartan/Grapefruit and KCl salt substitute Nutritional/Herbal Supplements: no Food Allergies:no Problem List Reviewed: yes Anthropometric Measurements: ==== Ht:71 in [180.3 cm] (03/22/2024 15:39) Wt:177 lb [80.29 kg] (04/19/2024 14:45) Weight History: 180 = 03/22/24 193 = 01/06/24 184.6 = 06/28/23 180 = 10/29/22 BMI: 24.7 IBW:172 +/-10% Biochemical Data/Medical Tests: ======= Labs: Not discussed BP: 138/78 (03/22/2024 15:39) Nutrition Focused Physical Findings: Appetite: OK, per patient Poor per -he puts foods back in refrigerator sometimes and tells her I'm not hungry . Does eat a lot of ice-cream Other issues/concerns: 1. Hx Swallowing Problem(PER MEDICAL RECORD) Note: HX of swallowing problem in past and seen by Speech Language Pathologist 12/11/21 who recommended slow rate of eating, small bites & sips, chew well, nectar thickened liquids, and take pills in applesauce or pudding. Patient declined use of nectar thickened beverages in past and today per patient and . Patient reports no difficulty swallowing when asked today and did not interject or add any information. 2. Some looser stools reported by . Note:Advised to review with PCP COMPARATIVE STANDARDS: ESTIMATED DAILY ENERGY REQUIREMENTS: 2010 calories Based on: 25 kcals/kg Actual Body Weight ESTIMATED DAILY PROTEIN REQUIREMENTS: 80g protein Based on 1 grams protein/kg Actual Body Weight ESTIMATED DAILY FLUID REQUIREMENTS: 2413 ml Based on 30 ml/kg Actual Body Weight Nutrition-Focused Physical Exam ======= Significant physical signs of nutrient deficits observed Interpretation of Weight Loss: [X]Severe [ ]>5% weight loss in 1 month [X]>7.5% weight loss in 3 months Note: Weight of 193 lbs 01/07/24 is an outlier, compared to other weights 180-184 range Malnutrition Screening: Unable to assess all criteria at this time Nutrition-Focused Physical Exam Summary: Based on the ASPEN/AND Malnutrition Diagnosis Guide, it was determined that the [facility] DOES NOT have malnutrition. Nutrition History: Food/Nutrition Related History: Obtained from patient & she sometimes gives patient 1 ENSURE PLus if he does not eat a meal. She does not give it to him every day. Breakfast: 1-2 eggs and 1-2 toast coffee snack: ice-cream Lunch: 1/2 sandwich-peanut butter & jelly or tuna with soda or milk Sometimes soup & crackers instead snack: ice-cream Supper: Meatballs or meatloaf or chicken thigh potato-all kinds vegetable soda or coffee snack: ice-cream In the past 3 months, did you ever run out of food and you were not able to access more food or have the money to buy more food? No Physical Activity: Walk on Wednesday and Other subjective information: Patient sometimes sleeps in late and misses breakfast NUTRITION DIAGNOSIS = Nutrition Problem: NEW Involuntary weight loss related to poor oral intake, psychological causes (SPECIFY:_Dementia___) as evidenced by 8.3% weight loss, _16___# weight loss over 3 months. NOTE: WEIGHT OF 193 LBS ON 01/06/24 IS AN OUTLIER and may influence data for weigh loss INTERVENTION NUTRITION SUPPLEMENT THERAPY Commercial beverage medical food supplement therapy Food and/or Nutrient Delivery: Recommend Oral Nutritional Supplement as follows: Product: ENSURE PLUS Dosage: 1 (8oz) container daily Provides: 350 calories, 13g protein, 51g carbohydrate, 11g fat NUTRITION COUNSELING Nutrition counseling based on motivational interviewing strategy , Nutrition counseling based on goal setting strategy NUTRITION EDUCATION Content related to nutrition education, Education on nutrition's influence on health Nutrition Education provided on the following topics: Healthy Weight Gain Strategies , Oral medical nutritional supplement recommendation (formula, dosage), Food/Drug interactions reviewed Printed Nutrition educational materials provided during this encounter: took notes Education Narrative: Explored options to help improve intake given dementia, patient preferences, and hx of dysphagia. Discussed having patient consume ENSURE PLUS daily, not just when he misses a meal. Reviewed process to obtain refills. Reviewed some adjustments at meals to increase calories. Discussed soluble fiber sources- oatmeal and applesauce to see if that helps bowels. Advised to review looser stools with PCP. Barriers to Education: Dementia Comprehension: Poor Motivation: Poor COORDINATION OF NUTRITION CARE Follow-up with: PCP MONITORING Patient goals: 1. Offer ENSURE PLUS daily, not just when he misses a meal 2. Add pudding for dessert wt lunch 3. Try sandwich & milk for lunch instead of soup & crackers 4. Swap soda at meals for milk 5. Add gravy to meat & potato 6. Try 1 swedish yogurt instead of ice-cream in morning 7. Try soluble fiber-applesauce and oatmeal FOLLOW-UP PLAN 1. Follow-up visit: May 2. Monitor progress toward achievement of Nutrition Intervention Goals 3. Assess comprehension and motivation based on dietary changes made 4. Monitor progress toward achievement of Clinical Outcome Goals: Weight, Labs, Swallowing CLINICAL OUTCOME GOALS: Indicator: Weight Criteria: Unintentional weight loss Goal: Stable weight by follow-up Progress: TBD at follow-up Indicator: Swallowing Problem Criteria: History of Dysphagia Goal: No choking or aspiration of diet by follow-up Progress: TBD at follow-up [employer] [facility], ASPIRATION, PURPOSE, VALUES, AND SHARED GOALS Shared Goal(s): see patient goals above (Focus area honoring [facility] MAP & Team priorities) /nick/ NOEL ORELLANA RD,LDN STAFF DIETITIAN Signed: 04/19/2024 17:16 NOEL ORELLANA CNTRL [facility]
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
--- OUTSIDE RECORDS SUMMARY | 2024-05-17 16:17 | XMS_ITS | Encounter Summary ---
Author Name [place] Address [address] [place] [id number] Care Team Providers Care Machine Bobbin Winder Name Role Phone YAZ LEIGH Primary Care Provider [facility] [place] Insurance Providers: All historical and current Section [...] BASIC INDIV IDUAL May 31, 2008 [id number] LIAN,THE [place] PATIENT CAREMARK-F EP BCBS PRESCRIPT ION FEP CAREM ARK May 31, 2010 [id number] [phone] LIAN,THE [place] PATIENT MEDICARE (WNR) MEDICARE (M) PART A Jan 29, 2005 PART A [id number] LIAN,THE [place] PATIENT MEDICARE (WNR) MEDICARE (M) PART A Jan 29, 2005 PART A [id number] [phone] LIAN,THE [place] PATIENT Selected Encounter This section includes the information on record at [place] for the Encounter. Date/Time Encounter Type Encounter Description Reason Provider Source May 17, 2024 12:30 PM Outpatient Encounter PRIMARY CARE/MEDICINE LUCÍA BLAKE Adán Encounter Template Text not used by [place] Plan of Treatment: Future Appointments (+ 6 months) and Future Tests (+/- 45 days) The Plan of Treatment section includes future care activities for the patient [facility] [place] [facility] This section includes future appointments and [...] 2024 03:00 PM AMBULATORY - [facility] [facility] Jun 22, 2024 03:00 PM [facility]AT[facility] - [facility]ICINE [facility] Jun 28, 2024 02:00 PM [facility] Jul 03, 2024 02:00 PM [facility] Social History: Smoking Status (Most current) [...] 06, 2024 02:00 PM VA-TOBACCO FOR[facility] USER [facility] Tobacco Use History This section includes a history of the smoking, or tobacco-related health factors, that were collected on or before the date of the Encounter. The data comes from the [place] facility where the Encounter took place. Date/Time Smoking Status/Tobacco Use Comment F acility Jan 06, 2024 02:00 PM [place] 15 YRS OR [facility] [place] [facility] Oct 29, 2022 03:30 PM VA-[facility]ACCO [facility] [place] [facility] Oct 29, 2022 03:30 PM VA-TOBACCO QUIT 15 YRS OR MORE [facility] [place] [facility] May 21, 2021 07:21 PM VA-TOBACCO FORMER USER [place] CNTRL [place] [facility] May 21, 2021 07:21 PM VA-TOBACCO QUIT 15 YRS OR MORE [place] [facility] Encounter Notes: All associated encounter notes This section contains the clinical notes associated to the Encounter. Date/Time Encounter Note(s) Provider Source May 17, 2024 12:39 PM ADDENDUM: LOCAL TITLE: Addendum STANDARD TITLE: ADDENDUM DATE OF NOTE: MAY 17, 2024@12:39:18 ENTRY DATE: MAY 17, 2024@12:39:19 AUTHOR: YAZ LEIGH EXP COSIGNER: URGENCY: STATUS: COMPLETED will continue apixaban through June 17. /es/ Yaz Leigh DNP, LIMOUSINE DRIVER-BC, CNL Primary Care Nurse Practitioner Signed: 05/17/2024 12:39 Receipt Acknowledged By: 05/17/2024 13:05 /es/ Isabelle Blake MSN RN CNL Primary Care RN ========= --- Original Document --- 05/17/24 PRIMARY CARE SECURE MESSAGING: ------Original Message -------- Sent: 05/17/2024 10:41 AM ET From: MARY BEAL To: Earnestine LEIGH_PRIMARY CARE_[facility] Subject: Medication:Topiramate Billy's Topiramate will run out May 22. Not sure how long he was supposed to take it, but at 60pills, taking them morning and night, he's only been on them a month. Thank you. Jada Beal ------Original Message -------- Sent: 05/17/2024 10:53 AM ET From: ISABELLE BLAKE To: MARY BEAL Subject: Medication:Topiramate Good morning Jada, I don't see any prior orders for Topiramate prescribed through [place]. Are you thinking of Apixaban? Respectfully, Isabelle Blake RN ------Original Message -------- Sent: 05/17/2024 11:01 AM ET From: MARY BEAL To: Earnestine LEIGH_PRIMARY CARE_[facility] Subject: Medication:Topiramate Yes, sorry. Going to be a long day. HappyHolidays, Enjoy! ------Original Message -------- Sent: 05/17/2024 12:30 PM ET From: ISABELLE BLAKE To: MARY BEAL Subject: Medication:Topiramate Good afternoon Jada, I will alert Dr. Leigh to your question regarding length of treatment with Apixaban. 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 Respectfully, Isabelle Blake RN /nick/ Isabelle Blake MSN RN CNL Primary Care RN Signed: 05/17/2024 12:30 Receipt Acknowledged By: 05/17/2024 12:40 /nick/ Yaz Leigh [facility], LIMOUSINE DRIVER-, CNL Primary Care Nurse Practitioner 05/17/2024 ADDENDUM STATUS: COMPLETED Jada advised via /nick/ Isabelle CAZARES RN CNL Primary Care RN Signed: 05/17/2024 13:05 YAZ LEIGH [place] [facility] May 17, 2024 12:30 PM PRIMARY CARE SECUR E MESSAGING: LOCAL TITLE: PRIMARY CARE SECURE MESSAGING STANDARD TITLE: PRIMARY CARE SECURE MESSAGING DATE OF NOTE: MAY 17, 2024@12:30 ENTRY DATE: MAY 17, 2024@12:30:59 AUTHOR: ISABELLE BLAKE EXP COSIGNER: URGENCY: STATUS: COMPLETED PRIMARY CARE SECURE MESSAGING Has ADDENDA ------Original Message -------- Sent: 05/17/2024 10:41 AM ET From: MARY BEAL [facility]: [facility] Subject: Medication:Topiramate Gaby Topiramate will run out May 22. Not sure how long he was supposed to take it, but at 60pills, taking them morning and night, he's only been on them a month. Thank you. Jada Beal ------Original Message -------- Sent: 05/17/2024 10:53 AM ET From: ISABELLE BLAKE To: MARY BEAL Subject: Medication:Topiramate Good morning Jada, I don't see any prior orders for Topiramate prescribed through [place]. Are you thinking of Apixaban? Respectfully, Isabelle Blake RN ------Original Message -------- Sent: 05/17/2024 11:01 AM ET From: MARY BEAL [facility]: [facility] Subject: Medication:Topiramate Yes, sorry. Going to be a long day. HappyHolidays, Enjoy! ------Original Message -------- Sent: 05/17/2024 12:30 PM ET From: ISABELLE BLAKE To: MARY BEAL Subject: Medication:Topiramate Good afternoon Jada, I will alert Dr. Leigh to your question regarding length of treatment with Apixaban. 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 Respectfully, Isabelle Blake RN /es/ Isabelle Blake MSN RN CNL Primary Care RN Signed: 05/17/2024 12:30 Receipt Acknowledged By: 05/17/2024 12:40 /es/ Yaz Leigh DNP, KAYLA, DARLENEL Primary Care Nurse Practitioner 05/17/2024 ADDENDUM STATUS: COMPLETED will continue apixaban through June 17. /nick/ KAYLA Holm DNP, DARLENEL Primary Care Nurse Practitioner Signed: 05/17/2024 12:39 Receipt Acknowledged By: 05/17/2024 13:05 /nick/ Isabelle CAZARES RN CNL Primary Care RN 05/17/2024 ADDENDUM STATUS: COMPLETED Jada advised via /nick/ Isabelle Blake MSN RN CNL Primary Care RN Signed: 05/17/2024 13:05 ISABELLE BLAKERL [facility]
--- OUTSIDE RECORDS SUMMARY | 2024-05-17 16:17 | XMS_ITS | Encounter Summary ---
Author Name [place] Organization [place] Address [address] [place] [address] Care Team Providers Care Reed Maker Name Role Phone YAZ WALTERS Primary Care Provider [facility] Insurance Providers: All historical and current Section [...] BASIC INDIV IDUAL May 31, 2008 [id number] [phone] LIAN,THE [place] PATIENT CAREMARK-F EP BS PRESCRIPT ION FEP CAREM ARK May 31, 2010 [id number] LIAN,THE [place] PATIENT MEDICARE (WNR) MEDICARE ([place]) PART A Jan 29, 2005 PART A [id number] LIAN,THE [place] PATIENT MEDICARE (WNR) MEDICARE (M) PART A Jan 29, 2005 PART A [id number] LIAN,THE [place] PATIENT Selected Encounter This section includes the information on record at [place] for the Encounter. Date/Time Encounter Type Encounter Description Reason Pro vider Source IHE Encounter Template Text not used by [place]
[2024-05-17 17:50] LABS: Folate 6.2 ng/mL (> or = 4.0); Vitamin B12 567 pg/mL (200-900)
[2024-05-17 17:51] LABS: Anion Gap 8 (12-20); Blood Urea Nitrogen 13 mg/dL (9-16); Calcium 9.2 mg/dL (8.4-10.2); Carbon Dioxide 28 mmol/L (22-29); Chloride 107 mmol/L (96-108); Estimated Glomerular Filt Rate 51; Glucose Random 105 mg/dL (60-115); Potassium 4.4 mmol/L (3.3-5.1); Sodium 139 mmol/L (135-145)
[2024-05-17 18:10] LABS: TSH reflex Free T4 3.01 uIU/mL (0.32-4.0)
== END 2024-05-17 16:09 | disposition home or self-care (01) ==
LOC: HO.LAB 16:08
PROVIDERS: PCP Nurse Practitioner Family; Visit Provider Psychiatry & Neurology Neurology
DX: G30.9 Alzheimer's disease, unspecified (principal)
CPT/HCPCS: 36415; 80048; 82607; 82746; 84443

== ENCOUNTER 2025-03-16 06:43 | Outpatient (REF) | payer BC, SELFPAY ==
[2025-03-16 06:47] LABS: MANUAL DIFF FLAG NO
--- OUTSIDE RECORDS SUMMARY | 2025-03-16 06:47 | XMS_ITS | Clinical Summary ---
Author Organization [facility] Address [address] [place] [address] Phone Care Team Providers Care Track Laminating Machine Tender Name Role Phone Abdullahi Leigh NP Primary Care Provide r Allergies No known active allergies Medications FOLIC ACID/MULTIVIT-M IN/LUTEIN (CENTRUM SILVER ORAL) as directed Active triamcinolone acetonide 0.1 % cream Apply topically 2 (two) times a day. 30 g 1 0 Active Additional Information Patient not taking.Reported on 01/14/2023 desonide (DESOWEN) 0.05 % cream 1 Active citalopram (CELEXA) 20 MG tabletIndicatio ns:Depression TAKE ONE TABLET BY MOUTH EVERY OTHER DAY AND ALTERNATE WITH 1/2 TABLET BY MOUTH EVERY OTHER DAY 90 tablet 1 1 Active galantamine (RAZADYNE ER) 8 MG 24 hr capsule TAKE ONE CAPSULE BY MOUTH EVERY DAY WITH BREAKFAST 90 capsule 2 Active losartan (COZAAR) 50 MG tabletIndicatio ns:HTN (hypertension) TAKE ONE TABLET BY MOUTH EVERY DAY 90 tablet 2 Active scopolamine (TRANSDERM-SCOP ) 1 mg over [address] 1 patch onto the skin every third day. 3 patch 1 2 Active Additional Information Patient not taking.Reported on 01/14/2023 melatonin 5 mg Tab Take by mouth nightly at bedtime. Active benzonatate (TESSALON) 100 MG capsule Take 1 capsule (100 mg total) by mouth 3 (three) times a day as needed for cough. 20 capsule 3 Active Active Problems Problem Noted Date Diagnosed Date Lung nodules 01/07/2021 Cough 04/01/2020 SIERRA (dyspnea on exertion) 03/11/2020 Obstructive sleep apnea syndrome 07/08/2017 Anxiety 06/24/2017 History of basal cell cancer 06/24/2017 Male erectile disorder 06/24/2017 Memory loss 06/24/2017 Essential hypertension 05/06/2017 Hyperlipidemia 04/28/2017 Impaired fasting glucose 04/28/2017 Mild cognitive impairment 04/28/2017 Resolved Problems Problem Noted Date Diagnosed Date Resolved Date Hypertension 04/28/2017 06/24/2017 Snoring 04/28/2017 04/01/2020 Encounters Date Type Department Care Team Description 01/18/2025 9:38 AM EDT - 01/18/2025 3:10 PM EDT Emergency [facility] [address] [place] [address] Discharge Disposition: Left Without Being Seen from Last 3 Months Immunizations Immunization Administration Dates Next Due COVID-19 (Pre-03/22) Pfizer Vaccine, mRNA, PF 07/24/2020,07/03/2020 INFLUENZA, SPLIT VIRUS, TRIV ALENT W/ PRESERVATIVE IM 03/06/2016 Influenza High-Dose Quadriva lent Preservative Free IM 03/02/2020 Influenza High-Dose Trivalen t Preservative Free IM 04/06/2019,03/17/2018,05/06/2017,03/16,03/06/2016,07/21/2015 Influenza Quadrivalent Adjuv anted Preservative Free IM 03/17/2021 Pneumococcal conjugate PCV13 03/06/2016,11/23/19 15 Pneumococcal polysaccharide PPSV23 04/07/2007 Td (adult) 5 Lf Tetanus Toxo id, PF, Adsorbed 06/04/1997 Tdap 07/19/2012 Zoster live 08/04/2012 Zoster recombinant 03/02/2020,03/29/2019 Family History Medical History Relation Comments CV disease Father 2 Cancer Mother 2 Cancer Sibling 2 Relation Status Comments Father 1 Father 2 Mother 1 Mother 2 Sibling 1 Sibling 2 Social History Tobacco Use Types Packs/Day Years Used Date Smoking Tobacco: Former Cigarettes 0.5 22 1 958 - 1980 Smokeless Tobacco: Never Alcohol Use Standard Drinks/Week Comments Yes 1 (1 standard drink = 0.6 oz pur e alcohol) daily Child or Family Care Answer Date Record ed Do you have problems with on e of the following making it difficult for you to work, study, or receive health care? No 08/15/2020 Education Answer Date Recorded Are you interested in more education? Not on aby e 09/25/2022 Are you concerned about learning? Not on file 09/25/2022 No 09/25/2022 No 09/25/2022 Food Answer Date Recorded Within the past 6 months we worried whether our food would run out before we got money to buy more. Never True 08/15/2020 Within the past 6 months the food we bought just didn't last and we didn't have enough money to get more. Never True Paying for Meds Answer Date Recorded Do you have trouble paying for medicines? No 08/15/2020 Paying Utility Bills Answer Date Record ed Do you have trouble paying your heating or elect ricity bill? No 08/15/2020 Transportation Answer Date Recorded Has the lack of transportati on kept you from medical appointments or from getting medications? No 08/15/2020 Digital Access Answer Date Recorded No 10/24/2022 No 10/24/2022 Reliable internet access at home? Not on file 10/24/2022 Device with a working camera? Not on file Intimate Partner Violence Answer Date R ecorded Are you denied basic needs s uch as food, clothing, or medical care? No 01/18/2025 In the past 12 months have y ou been in a relationship with a person who hurts, threatens, or tries to control you? No 01/18/2025 Are you denied basic needs s uch as food, clothing, or medical care? No 01/18/2025 In the past 12 months have y ou been in a relationship with a person who hurts, threatens, or tries to control you? No 01/18/2025 Sex and Gender Information Value Date Recorded Sex Assigned at Male 11/14/2021 12:28 PM EDT Legal Sex Male 10:12 PM EDT Gender Identity Male 11/14/2021 12:28 PM EDT Sexual Orientation Straight 11/14/2021 12 :28 PM EDT Last Filed Vital Signs Vital Sign Reading Time Taken Comments Blood Pressure 159/77 01/18/2025 12:06 PM EDT Pulse 65 01/18/2025 12:06 PM EDT Temperature 36.4 C (97.5 F) 01/18/2025 12:06 PM EDT Respiratory Rate 14 01/18/2025 12:06 PM EDT Oxygen Saturation 93% 01/18/2025 12:06 PM EDT Inhaled Oxygen Concentration - - Weight 83.9 kg (185 lb) 01/18/2025 10:09 AM EDT Height 182.9 cm (6') 01/18/2025 10:09 AM EDT Body Mass Index 25.09 01/18/2025 10:09 AM EDT Plan of Treatment Health Maintenance Due Date Last Done Comments BLOOD PRESSURE 1940 DEPRESSION SCREENING 1952 RSV VACCINE (1 - 1-dose 75+ series) 02/15/2015 LIPID PANEL 07/01/2019 07/01/2018, 10/30, 11/24/2016, Additional history exists Adult Td,Tdap Booster 07/19/2022 07/19/2012, 998 INFLUENZA VACCINE (#1) 2024 , 03/17/2021, 03/09/2021, Additional history exists COVID-19 VACCINE ( season) 2025 03/17/2021, 07/24/2020, 07/03/2020 CREATININE LEVEL 01/18/2026 01/18/2025, 11/2022, 05/24/2022, Additional history exists POTASSIUM LEVEL 01/18/2026 01/18/2025, 05/0 11/2022, 05/24/2022, Additional history exists PNEUMOCOCCAL VACCINES (50+ years) Completed 03/06/2016, 11/22/2014, 04/07/2007 ZOSTER VACCINES Completed 03/02/2020, 03/02, 08/04/2012 HEPATITIS A VACCINES Aged Out No long er eligible based on patient's age to complete this topic HIB VACCINES Aged Out No longer eligi ble based on patient's age to complete this topic MENINGOCOCCAL VACCINES (ACWY) Aged Out No longer eligible based on patient's age to complete this topic MENINGOCOCCAL VACCINES (B) Aged Out N o longer eligible based on patient's age to complete this topic Medical Devices Not on file Procedures Procedure Name Priority Date/Time Associated Diagnosis Comments PT-INR STAT 01/18/2025 10:34 AM EDT LIPASE STAT 01/18/2025 10:34 AM EDT LFTS (HEPATIC PANEL) STAT 01/18/2025 10:34 AM EDT BASIC METABOLIC PANEL STAT 01/18/2025 10:34 AM EDT CBC AND DIFFERENTIAL STAT 01/18/2025 10:34 AM EDT ECG 12-LEAD STAT 01/18/2025 10:16 AM EDT LIPID PANEL Routine 07/01/2018 10:11 AM EST Mixed hyperlipidemia from Last 3 Months or Most Recently Relevant to Health Maintenance Results * LFTs (hepatic panel) (01/18/2025 10:34 AM EDT) ALKALINE PHOSPHATASE 68 39 - 117 U/L [facility] TOTAL BILIRUBIN 1.0 0.0 - 1.2 mg/dL [facility] DIRECT BILIRUBIN 0.2 0.0 - 0.2 mg/dL [facility] Bilirubin (Indirect) 0.8 0 - 1.5 mg/dL [facility] AST 17 0 - 37 U/L [facility] ALT 18 0 - 40 U/L [facility] TOTAL PROTEIN 7.6 6.5 - 8.0 g/dL [facility] ALBUMIN 4.2 3.9 - 4.8 g/dL [facility] GLOBULIN 3.4 1 - 4.8 g/dL [facility] A/G Ratio 1.24 1.00 - 4.80 RATIO [facility] Blood 01/18/2025 10:3 4 AM EDT 01/18/2025 11:09 AM EDT Xochilt Landa MD LAB BLOOD ORDERABLES Karis l Result Performing Organization Address [facility] Co de Phone Number [address] [address] * (ABNORMAL) PT-INR (01/18/2025 10:34 AM EDT) PT 13.7(H) 10.2 - 12.9 sec [facility] INR 1.1 0.9 - 1.1 [facility] Comment:Therapeutic range fo r oral Vitamin K antagonists: 2.0-3.5 Blood 01/18/2025 10:3 4 AM EDT 01/18/2025 11:09 AM EDT Xochilt Landa MD LAB BLOOD ORDERABLES Karis l Result Performing Organization Address [facility] Co de Phone Number [address] [address] * (ABNORMAL) CBC and differential (01/18/2025 10:34 AM EDT) WBC 11.11(H) 4.00 - 11.00 K/uL [facility] RBC 5.58 4.50 - 5.90 M/uL [facility] HGB 14.7 13.5 - 17.5 g/dL [facility] HCT 46.5 41.0 - 53.0 % [facility] PLT 233 150 - 450 K/uL [facility] MCV 83.3 80.0 - 100.0 fL [facility] MCH 26.3(L) 27.0 - 31.0 pg [facility] MCHC 31.6(L) 32.0 - 36.0 g/dL [facility] RDW 14.3 11.5 - 14.5 % [facility] MPV 11.2 8.4 - 12.0 fL [facility] NRBC 0.00 0.00 /100 WBCs [facility] ABSOLUTE NRBC 0.00 0.00 K/uL [facility] DIFF METHOD Auto [facility] NEUTS 82.4(H) 48.0 - 76.0 % [facility] LYMPHS 9.4(L) 18.0 - 41.0 % [facility] MONOS 5.7 4.0 - 11.0 % [facility] EOS 1.6 0.0 - 5.0 % [facility] BASOS 0.4 0.0 - 1.5 % [facility] Granulocytes, immature (%) 0.5 0.0 - 0.9 % [facility] ABSOLUTE NEUTS 9.17(H) 1.92 - 7.60 K/uL [facility] ABSOLUTE LYMPHS 1.04 0.72 - 4.10 K/uL [facility] ABSOLUTE MONOS 0.63 0.16 - 1.10 K/uL [facility] ABSOLUTE EOS 0.18 0.00 - 0.50 K/uL [facility] ABSOLUTE BASOS 0.04 0.00 - 0.15 K/uL [facility] Granulocytes, immature 0.05 0.00 - 0.09 K/uL [facility] Blood 01/18/2025 10:3 4 AM EDT 01/18/2025 11:09 AM EDT us Xochilt Landa MD LAB BLOOD ORDERABLES Karis l Result [facility] [address] [place] [address] * Lipase (01/18/2025 10:34 AM EDT) LIPASE 27 16 - 63 U/L [facility] Blood 01/18/2025 10:3 4 AM EDT 01/18/2025 11:09 AM EDT us Xochilt Landa MD LAB BLOOD ORDERABLES Karis l Result Performing Organization Address [facility]/ZIP Co de Phone Number [address] [address] * (ABNORMAL) Basic metabolic panel (01/18/2025 10:34 AM EDT) SODIUM 139 133 - 146 mmol/L [facility] CHLORIDE 105 96 - 108 mmol/L [facility] POTASSIUM 4.4 3.3 - 5.1 mmol/L [facility] CO2 22 21 - 35 mmol/L [facility] BUN 14 6 - 19 mg/dL [facility] CREATININE 1.30 0.5 - 1.5 mg/dL [facility] GLUCOSE 136(H) 70 - 99 mg/dL [facility] CALCIUM 9.6 8.4 - 10.3 mg/dL [facility] EGFR 54(L) >59 mL/min/1.7 3m2 [facility] Comment:Estimated glomerular filtration rate calculated using the CKD-EPI refit equation. ANION GAP 16 10 - 20 mmol/L [facility] Blood 01/18/2025 10:3 4 AM EDT 01/18/2025 11:09 AM EDT us Xochilt Landa MD LAB BLOOD ORDERABLES Karis l Result Performing Organization Address [facility] Co de Phone Number [address] [address] * ECG 12-LEAD (01/18/2025 10:16 AM EDT) Ventricular Rate EKG/MIN 72 BPM [facility] Atrial Rate 72 BPM [facility] NE Interval 264 ms [facility] QRS Duration 80 ms [facility] QT Interval 394 ms [facility] QTC Interval 431 ms [facility] P Arion 69 degrees [facility] R Wave Arion -16 degrees [facility] T Wave Arion 50 degrees [facility] 01/18/2025 10:1 6 AM EDT 01/18/2025 11:55 AM EDT Narrative [facility] - 01/18/2025 11:55 AM EDT Sinus rhythm with 1st degree A-V block with occasional Premature ventricular complexes Otherwise normal ECG When compared with ECG of 04-Oct-2022 01:32, Premature ventricular complexes are now Present Confirmed by Hemanth Lincoln ([id number]) on 01/18/2025 11:55:05 AM us Xochilt Landa MD ECG ORDERABLES Final Res ult Performing Organization Address City/[facility]/ZIP Co de Phone Number [facility] * Lipid panel (07/01/2018 10:11 AM EST) HDL 56 mg/dL [facility] Comment: Interpretation <40 mg/dL: Low HDL cholesterol (major risk factor for CHD) Greater than or equal to 60 mg/dL: High HDL cholesterol ( negative risk factor for CHD) HDL - cholesterol is affected by a number of factors, e.g. smoking, excerise, hormones, sex and age. CHOLESTEROL 191 0 - 240 mg/dL [facility] TRIGLYCERIDES 81 30 - 160 mg/dL [facility] LDL 119 50 - 129 mg/dL [facility] Comment: LDL levels in terms of risk for coronary heart disease: <100 mg/dL: Optimal 100-129 mg/dL: Near or above optimal 130-159 mg/dL: Borderline high 160-189 mg/dL: High >190 mg/dL: Very High CARDIAC RISK RATIO 3.4 3.4 - 5.0 C [facility] Blood 07/01/2018 10:1 1 AM EST 07/01/2018 10:13 AM EST us Benjamin Hadley MD LAB BLOOD ORDERABLES Final Re sult Performing Organization Address City/[facility]/ZIP Co de Phone Number [facility] [address] [place] [address] from Last 3 Months or Most Recently Relevant to Health Maintenance Insurance [facility] MEDICARE A [facility] MEDICARE A [facility] MEDICARE A [facility] MEDICARE A [facility] MEDICARE [facility] MEDICARE A [facility] MEDICARE A [facility] MEDICARE A [facility] MEDICARE A [facility] Care Teams Track Laminating Machine Tender Relationship Specialty Start Date End Date Abdullahi Leigh NP [address] [place] [address] PCP - General Family Medicine 05/23/22 Additional Source Comments The information contained in this document represents components of the legal health record. It is not the complete legal health record.[facility]
--- OUTSIDE RECORDS SUMMARY | 2025-03-16 06:47 | XMS_ITS | Encounter Summary ---
Author Organization [facility] Address [address] [place] [address] Phone Care Team Providers Care Dispatch Supervisor Name Role Phone Benjamin Hadley MD Primary Care Provider [phone] Abdullahi Leigh NP Primary Care Provide r Reason for Referral * MRI/CAT Scan - Closed Specialty Diagnoses / Procedures Referred By Contac t Referred To Contact Radiology Diagnoses Other symptoms and signs involving cognitive functions and awareness Memory impairment Procedures MRI Brain Abdullahi Leigh NP [address] [place] [address] Phone: tel: fax: Referral ID Status Reason Start Date Expiration Date Visits Re quested Visits Authorized [id number] Closed 07/28/2021 07/28/2022 1 1 Encounter Details Date Type Department Care Team (Latest Contact Info) Description 07/28/2021 Transcribe Orders [facility] Department [address] [place] [id number] Abdullahi Leigh, ROMMEL [address] [place] [address] Other symptoms and signs involving cognitive functions and awareness (Primary Dx); Memory impairment Social History Tobacco Use Types Packs/Day Years Used Date Smoking Tobacco: Former Cigarettes 0.5 22 1 958 - 1979 Smokeless Tobacco: Never Child or Family Care Answer Date Record ed Do you have problems with on e of the following making it difficult for you to work, study, or receive health care? No 08/15/2020 Education Answer Date Recorded Are you interested in help w ith more adult education (for example, completing high school, GED, job training, learning the Malay language, technical skills, or developing parenting skills)? No 08/15/2020 Are you concerned about learning? Not on file 08/15/2020 Not on file 08/15/2020 Not on file 08/15/2020 Food Answer Date Recorded Within the past [...] appointments or from getting medications? No 08/15/2020 Sex and Gender Information Value Date Recorded Sex Assigned at Male 11/14/2021 12:28 PM EDT Legal Sex Male 10:12 PM EDT Gender Identity Male 11/14/2021 12:28 PM EDT Sexual Orientation Straight 11/14/2021 12 :28 PM EDT documented as of this encounter Plan of Treatment Not on file documented as of this encounter Results * MRI BRAIN WITHOUT CONTRAST (08/12/2021 6:35 PM EDT) Anatomical Region Laterality Modality Head Magnetic Resonan ce 08/12/2021 7:02 PM EDT Impressions 08/12/2021 7:07 PM EDT 1.No acute infarct, mass lesion or hemorrhage. 2.White matter changes, likely a manifestation of chronic small vessel disease, mildly progressed from 2017. 3.Brain volume loss, mildly progressed from 2017 Narrative 08/12/2021 7:07 PM EDT MRI BRAIN WITHOUT CONTRAST TECHNIQUE: Multi-sequence, multi-planar MRI of the brain was performed without intravenous contrast. COMPARISON: Brain MRI on December 02, 2016 FINDINGS: Brain Parenchyma: No evidence of acute infarct, mass or hemorrhage. There are scattered and confluent foci of T2 hyperintensity in the white matter, likely a manifestation of chronic small vessel disease, mildly progressed from 2017. Ventricular System and Extra-Axial Spaces: The ventricles and cortical sulci are prominent, more than commonly seen in patients of this age, mildly progressed from 2017. No evidence of midline shift or hydrocephalus. Extracranial Structures: Arterial flow voids in the skull base are present. Mild paranasal sinus disease. Mastoid air cells are clear. Procedure Note Lena Dolan MD - 08/12/2021 MRI BRAIN WITHOUT CONTRAST TECHNIQUE: Multi-sequence, multi-planar MRI of the brain was performed withoutintravenous contrast. COMPARISON: Brain MRI on December 02, 2016 FINDINGS: Brain Parenchyma: No evidence of acute infarct, mass or hemorrhage. Thereare scattered and confluent foci of T2 hyperintensity in the white matter,likely a manifestation of chronic small vessel disease, mildly progressedfrom 2017. Ventricular System and Extra-Axial Spaces: The ventricles and corticalsulci are prominent, more than commonly seen in patients of this age,mildly progressed from 2017. No evidence of midline shift orhydrocephalus. Extracranial Structures: Arterial flow voids in the skull base arepresent. Mild paranasal sinus disease. Mastoid air cells are clear. IMPRESSION: 1.No acute infarct, mass lesion or hemorrhage. 2.White matter changes, likely a manifestation of chronic small vesseldisease, mildly progressed from 2017. 3.Brain volume loss, mildly progressed from 2017 Abdullahi Deon Leigh PERSONNEL ANALYST IMG MR HEAD/NECK Karis l Result documented in this encounter Visit Diagnoses Diagnosis Other symptoms and signs involving cognitive functions and awareness- Primary Memory impairment Memory loss Other symptoms and signs involving cognitive functions and awareness Memory impairment Memory loss documented in this encounter Additional Health Concerns Infection Onset Date Last Indicated Resolved Time CoV-Risk 05/23/2022 05/23/2022 06/03/2022 1:23 AM EST Influenza 05/23/2022 05/23/2022 05/30/2022 1:24 AM EST documented as of this encounter Care Teams Dispatch Supervisor Relationship Specialty Start Date End Date Benjamin Hadley MD [address] [place] [address], [address] [place] [address] [email or web address] PCP - General Family Medicine 05/09/19 05/22/22 Abdullahi Leigh NP [facility] [place] [address] PCP - General Family Medicine 05/23/22 documented as of this encounter Additional Source Comments The information contained in this document represents components of the legal health record. It is not the complete legal health record.[facility]
--- OUTSIDE RECORDS SUMMARY | 2025-03-16 06:47 | XMS_ITS | Encounter Summary ---
Author Organization [facility] Address [address] [place] [address] Phone Care Team Providers Care Inspector Eyeglass Name Role Phone Benjamin Hadley MD Primary Care Provider [phone] Abdullahi Leigh NP Primary Care Provide r Encounter Details Date Type Department Care Team (Late st Contact Info) Description 08/30/2020 Procedure Pass [facility], Ct Scan - [address] [address] Social History Tobacco Use Types Packs/Day Years Used Date Smoking Tobacco: Former Cigarettes 0.5 22 1 958 - 1980 Smokeless Tobacco: Never Child or Family Care Answer Date Record ed Do you have problems with on e of the following making it difficult for you to work, study, or receive health care? No 08/15/2020 Education Answer Date Recorded Are you interested in help w ith more adult education (for example, completing high school, GED, job training, learning the Thai language, technical skills, or developing parenting skills)? [...] on file documented as of this encounter Visit Diagnoses Not on filedocumented in this encounter Additional Health Concerns Infection Onset Date Last Indicated Resolved Time CoV-Risk 05/23/2022 05/23/2022 06/03/2022 1:23 AM EST Influenza 05/23/2022 05/23/2022 05/30/2022 1:24 AM EST documented as of this encounter Care Teams Inspector Eyeglass Relationship Specialty Start Date End Date Benjamin Hadley MD [address] [place] [address] [address] [place] [address] PCP - General Family Medicine 05/09/19 05/22/22 Abdullahi Leigh NP [address] [place] [address] PCP - General Family Medicine 05/23/22 documented as of this encounter Additional Source Comments The information contained in this document represents components of the legal health record. It is not the complete legal health record.[facility]
--- OUTSIDE RECORDS SUMMARY | 2025-03-16 06:47 | XMS_ITS | Encounter Summary ---
Author Organization [facility] Address [address] [address] Phone Care Team Providers Care Diabetes Clinical Manager Name Role Phone Benjamin Hadley MD Primary Care Provider [phone] Abdullahi Leigh NP Primary Care Provide r Encounter Details Date Type Department Care Team (Late st Contact Info) Description 01/30/2020 Transcribe Orders [address] [place] [address] [place] [address] Rash (Primary Dx) Social History Tobacco Use Types Packs/Day Years Used Date Smoking Tobacco: Former Cigarettes 0.5 20 1 960 - 1980 Smokeless Tobacco: Never Sex and Gender Information Value Date Recorded Sex Assigned at Male 11/14/2021 12:28 PM EDT Legal Sex Male 10:12 PM EDT Gender Identity Male 11/14/2021 12:28 PM EDT Sexual Orientation Straight 11/14/2021 12 :28 PM EDT documented as of this encounter Plan of Treatment Not on file documented as of this encounter Results * Lyme screen with reflex to Western blot, blood (01/30/2020 1:48 PM EDT) Lyme AB IgG Negative Negative [facility] Lyme AB IgM Negative Negative [facility] Blood 01/30/2020 1:48 PM EDT 01/30/2020 1:54 PM EDT us Robina Randall MD LAB BLOOD ORDERABLES Final Result [facility] [address] [place] [address] documented in this encounter Visit Diagnoses Diagnosis Rash- Primary Rash and other nonspecific skin eruption documented in this encounter Additional Health Concerns Infection Onset Date Last Indicated Resolved Time CoV-Risk 05/11/2020 05/12/2020 05/25/2020 1:24 AM EST CoV-Risk 05/23/2022 05/23/2022 06/03/2022 1:23 AM EST Influenza 05/23/2022 05/23/2022 05/30/2022 1:24 AM EST documented as of this encounter Care Teams Diabetes Clinical Manager Relationship Specialty Start Date End Date Benjamin Hadley MD [address] [place] [address], [facility] [address] [place] [address] [email or web address] PCP - General Family Medicine 05/09/19 05/22/22 Abdullahi Leigh NP [facility] [place] [address] PCP - General Family Medicine 05/23/22 documented as of this encounter Additional Source Comments The information contained in this document represents components of the legal health record. It is not the complete legal health record.[facility]
--- OUTSIDE RECORDS SUMMARY | 2025-03-16 06:47 | XMS_ITS | Encounter Summary ---
Author Organization [facility] Address [address] [place] [id number] Phone Care Team Providers Care Machine Adjuster Helper Name Role Phone Abdullahi Leigh NP Primary Care Provide r Encounter Details Date Type Department Care Team (Late st Contact Info) Description 10/04/2022 Procedure Pass [facility], Ct Scan - [address] [address] Social History Tobacco Use Types Packs/Day Years [...] appointments or from getting medications? No 08/15/2020 Intimate Partner Violence Answer Date R ecorded Are you denied basic needs s uch as food, clothing, or medical care? No 05/23/2022 In the past 12 months have y ou been in a relationship with a person who hurts, threatens, or tries to control you? No 05/23/2022 Are you denied basic needs s uch as food, clothing, or medical care? No 05/23/2022 In the past 12 months have y ou been in a relationship with a person who hurts, threatens, or tries to control you? No 05/23/2022 Sex and Gender Information Value Date Recorded Sex Assigned at Male 11/14/2021 12:28 PM EDT Legal Sex Male 10:12 PM EDT Gender Identity Male 11/14/2021 12:28 PM EDT Sexual Orientation Straight 11/14/2021 12 :28 PM EDT documented as of this encounter Functional Status * Calculated C-SSRS Risk Score (Lifetime/Recent) Answer Date of Assessment Author No Risk Indicated 10/04/2022 1:33 AM EDT Khushi Jorge RN * Schleicher Suicide Severity Rating Scale (Screener/Recent Self-Report) Question Answer Date of Assessment Author 1. Wish to be (Past 1 Month) No 023 1:33 AM EDT Khushi Jorge, PRISCILA 2. Non-Specific Active Suici stefan Thoughts (Past 1 Month) No 10/04/2022 1:33 AM EDT Padmini Jorge, PRISCILA 6. Suicidal Behavior (Lifetime) No 3 1:33 AM EDT Khushi Jorge, PRISCILA documented as of this encounter Plan of Treatment Not on file documented as of this encounter Visit Diagnoses Not on filedocumented in this encounter Care Teams Machine Adjuster Helper Relationship Specialty Start Date End Date Abdullahi Leigh NP [address] [place] [address] PCP - General Family Medicine 05/23/22 documented as of this encounter Additional Source Comments The information contained in this document represents components of the legal health record. It is not the complete legal health record.[facility]
--- OUTSIDE RECORDS SUMMARY | 2025-03-16 06:47 | XMS_ITS | Encounter Summary ---
Author Organization [facility] Address [address] [place] [phone] Phone Care Team Providers Care Traveling Passenger Agent Name Role Phone Benjamin Hadley MD Primary Care Provider Abdullahi Leigh NP Primary Care Provide r Encounter Details Date Type Department Care Team (Late st Contact Info) Description 01/12/2020 Procedure Pass [facility], Ct Scan - [address] [address] Social History Tobacco Use Types Packs/Day Years [...] documented as of this encounter Care Teams Traveling Passenger Agent Relationship Specialty Start Date End Date Benjamin Hadley MD [address] [place] [address] 7 [place] [address] [email or web address] PCP - General Family Medicine 05/09/19 05/22/22 Abdullahi Leigh NP [address] [place] [id number] PCP - General Family Medicine 05/23/22 documented as of this encounter Additional Source Comments The information contained in this document represents components of the legal health record. It is not the complete legal health record.[facility]
--- OUTSIDE RECORDS SUMMARY | 2025-03-16 06:47 | XMS_ITS | Encounter Summary ---
Author Organization [facility] Address [address] [place] [phone] Phone Care Team Providers Care Salvage Worker Name Role Phone Benjamin Hadley MD Primary Care Provider [phone] Abdullahi Leigh NP Primary Care Provide r Encounter Details Date Type Department Care Team (Late st Contact Info) Description 07/28/2021 Procedure Pass [facility], [address] [address] Social History Tobacco Use Types Packs/Day Years [...] high school, GED, job training, learning the Bengali language, technical skills, or developing parenting skills)? [...] documented as of this encounter Care Teams Salvage Worker Relationship Specialty Start Date End Date Benjamin Hadley MD [address] [place] [address], [facility] [address] [place] [address] PCP - General Family Medicine 05/09/19 05/22/22 Abdullahi Leigh NP [address] [place] [address] PCP - General Family Medicine 05/23/22 documented as of this encounter Additional Source Comments The information contained in this document represents components of the legal health record. It is not the complete legal health record.[facility]
[2025-03-16 07:23] LABS: Hematocrit 41.7 % (42.0-52.0); Hemoglobin 13.4 g/dl (14.0-18.0); Imm Gran Abs Auto 0.03 X10*3/uL (0.00-0.03); Imm Gran Pct Auto 0.4 % (0.0-0.4); Lymphocytes Absolute Auto 2.1 X10*3/uL (1.2-4.9); Mean Corpuscular HGB Conc 32.1 g/dl (31.0-36.0); Mean Corpuscular Hemoglobin 26.7 pg (27.0-33.0); Mean Corpuscular Volume 83.2 fL (80.0-98.0); NRBC Abs Auto 0.000 X10*3/uL (0.0-0.012); NRBC Pct Auto 0.0 /100WBC (0.0-0.2); Platelet Count 228 X10*3/uL (160-400); Red Blood Count 5.01 X10*6/uL (4.60-5.80); White Blood Count 6.9 X10*3/uL (4.8-10.8)
[2025-03-16 07:52] LABS: Alanine Aminotransferase 22 U/L (0-40); Albumin Level 4.2 g/dL (3.5-5.0); Alkaline Phosphatase 56 U/L (39-117); Anion Gap 11 (12-20); Aspartate Amino Transferase 18 U/L (5-37); Blood Urea Nitrogen 17 mg/dL (9-16); Calcium 9.1 mg/dL (8.4-10.2); Carbon Dioxide 26 mmol/L (22-29); Chloride 109 mmol/L (96-108); Estimated Glomerular Filt Rate 53; Potassium 4.2 mmol/L (3.3-5.1); Sodium 142 mmol/L (135-145); Total Protein 6.7 g/dL (6.5-8.0)
[2025-03-16 08:07] LABS: Thyroid Stimulating Hormone 3.64 uIU/mL (0.32-4.0)
== END 2025-03-16 06:44 | disposition home or self-care (01) ==
LOC: HO.HSH2N 06:43
PROVIDERS: Visit Provider Internal Medicine Interventional Cardiology
DX: Z13.89 Encounter for screening for other disorder (principal)
CPT/HCPCS: 36415; 80053; 82306; 84443; 85025; 86481

== ENCOUNTER 2025-05-09 01:37 | Emergency (ER) | payer BC, SELFPAY ==
--- NOTE | 2025-05-09 | ECG_ITS ---
Test Reason : check qtc Blood Pressure : */* mmHG Vent. Rate : 90 BPM Atrial Rate : 90 BPM P-R Int : 278 ms QRS Dur : 70 ms QT Int : 374 ms P-R-T Axes : 79 -13 7 degrees QTcB Int : 457 ms Sinus rhythm with 1st degree A-V block with Premature atrial complexes with Aberrant conduction Inferior infarct , age undetermined Cannot rule out Anterior infarct , age undetermined Abnormal ECG No previous ECGs available Referred By: Sahra Maier Electronically Signed By: ESTEFANIA VERA MD
--- NOTE | ~2025-05-09 | CT_ITS ---
EXAMINATION: CT HEAD WITHOUT CONTRAST CLINICAL INFORMATION: AMS COMPARISON: None available. TECHNIQUE: Contiguous axial imaging was performed from the skull base to vertex without intravenous administration of contrast. This CT examination was performed using dose optimization techniques as appropriate, variously including the following: *Automated exposure control *Adjustment of mA and/or kV according to patient size (this includes techniques or standardized protocols for targeted exams where dose is matched to indication/reason for exam; i.e. extremities or head) *Use of iterative reconstruction technique DLP: 714 mGy-cm FINDINGS: No acute intracranial hemorrhage, mass effect, midline shift, hydrocephalus or herniation. Amaya-white matter differentiation is normal. Bilateral multifocal patchy confluent deep periventricular white matter hypodensities involving centrum semiovale and schwartz radiata. Posterior cranial fossa contents constrain no acute hemorrhage or mass effect. Prominence of the extra-axial CSF spaces cerebral sulci and ventricles. Sellar/suprasellar region demonstrated no gross masses. Craniocervical junction is intact with normal position of the cerebellar tonsils. Calcified plaques in the V4 segments of the vertebral arteries and cavernous supracavernous segments both ICAs. Mucosal thickening, ethmoid air cells and maxillary sinuses. No air-fluid levels in the paranasal sinuses. Tympanic cavities and mastoid cells are aerated. No acute fracture in the bony calvarium.. CT/CT head/brain wo IV con IMPRESSION: No acute intradural hemorrhage. 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 Global cerebral atrophy. Electronically signed by: Dex Leone MD 05/09/2025 10:02 AM JANEL
[2025-05-09 02:05] VITALS: BP 123/76; BP 126/84; PULSE 83; PULSE 86; RESP 18; TEMP 36.5; O2SAT 95; BMI 26.5
--- NOTE | 2025-05-09 02:57 | PC.NURSE ---
Elopement band placed to left wrist. Pt given PO fluids and sandwich. Refusing PO meds.
--- NOTE | 2025-05-09 03:07 | PC.NURSE ---
Pt needing much encouragement to take PO meds, Pt sitting on edge of bed very restless and fidgety.
[2025-05-09 06:16] LABS: MANUAL DIFF FLAG NO
[2025-05-09 06:17] LABS: Hematocrit 38.9 % (42.0-52.0); Hemoglobin 13.0 g/dl (14.0-18.0); Imm Gran Abs Auto 0.04 X10*3/uL (0.00-0.03); Imm Gran Pct Auto 0.4 % (0.0-0.4); Lymphocytes Absolute Auto 1.7 X10*3/uL (1.2-4.9); Mean Corpuscular HGB Conc 33.4 g/dl (31.0-36.0); Mean Corpuscular Hemoglobin 27.7 pg (27.0-33.0); Mean Corpuscular Volume 82.9 fL (80.0-98.0); NRBC Abs Auto 0.000 X10*3/uL (0.0-0.012); NRBC Pct Auto 0.0 /100WBC (0.0-0.2); Platelet Count 220 X10*3/uL (160-400); Red Blood Count 4.69 X10*6/uL (4.60-5.80); White Blood Count 8.9 X10*3/uL (4.8-10.8)
--- NOTE | 2025-05-09 06:19 | PC.NURSE ---
Pt was restless, pacing in room. Redirectable. IM meds ordered however pt calmed down enough to take PO. Labs obtained. Pt appears to be more relaxed
[2025-05-09 06:32] LABS: Alanine Aminotransferase 17 U/L (0-40); Albumin Level 4.2 g/dL (3.5-5.0); Alkaline Phosphatase 90 U/L (39-117); Anion Gap 12 (12-20); Aspartate Amino Transferase 19 U/L (5-37); Blood Urea Nitrogen 31 mg/dL (9-16); Calcium 8.5 mg/dL (8.4-10.2); Carbon Dioxide 21 mmol/L (22-29); Chloride 101 mmol/L (96-108); Creatinine Clr Calc Pharmacy 32.4; Estimated Glomerular Filt Rate 38; Magnesium 2.0 mg/dL (1.6-2.6); Potassium 4.2 mmol/L (3.3-5.1); Sodium 130 mmol/L (135-145); Total Protein 6.7 g/dL (6.5-8.0)
[2025-05-09 06:38] LABS: IDNOW Serial# 55D5AD1C; Influenza B2 Negative (Negative)
[2025-05-09 06:39] LABS: COVID-19 Test Negative (Negative); IDNOW Serial# 58CA691E
[2025-05-09] MEDS: OLANZapine 10 MG VIAL 5 MG IM (06:45)
--- NOTE | 2025-05-09 07:18 | ED.GENADULT ---
HPI - General Adult General Chief complaint: General Medical Stated complaint: AMS combative rule out UTI, dx dementia, calm now Time Seen by Provider: 05/09/25 01:42 Source: patient, EMS, RN notes reviewed and old records reviewed Mode of arrival: EMS Limitations: altered mental status History of Present Illness ED Provider: Dr. Sahra Maier HPI narrative: 85-year-old male with a history of dementia [facility] with reported aggressive behavior towards staff and other patients tonight. It reportedly walking into other patient's rooms thinking the staff were in his home. Upon arrival to the emergency department however, patient is extremely cooperative, oriented and calm. States that he is in [facility] and is also oriented to self. He has no complaints and is unsure as to why he came to the hospital tonight. There are no reports of fever. EMS reports that his states when he gets agitated, he tends to have urinary tract infections. Patient denies pain with urination but has not been able to give a urine sample either. Related Data Home Medications ?Medication ?Instructions ?Recorded ?Confirmed acetaminophen 325 mg tablet 650 mg PO Q4H PRN fever/pain 05/09/25 05/09/25 docusate sodium 100 mg capsule 100 mg PO DAILY@119905/09/25 05/09/25 lactulose 10 gram/15 mL oral 15 ml PO DAILY PRN Constipation 05/09/25 05/09/25 solution losartan 50 mg tablet 50 mg PO DAILY@1200 05/09/25 05/09/25 melatonin 3 mg tablet 6 mg PO BEDTIME 05/09/25 05/09/25 multivitamin 1 tab PO DAILY@1200 05/09/25 05/09/25 omeprazole 20 mg capsule,delayed 20 mg PO DAILY@0630 05/09/25 05/09/25 release quetiapine 50 mg tablet 50 mg PO BEDTIME 05/09/25 05/09/25 sertraline 25 mg tablet 25 mg PO DAILY@1200 05/09/25 05/09/25 Previous Rx's ?Medication ?Instructions ?Recorded lorazepam 0.5 mg tablet (Ativan) 0.5 mg PO TID PRN agitation #10 05/11/25 tabs olanzapine 5 mg tablet 5 mg PO DAILY 4 weeks #28 tabs 05/11/25 olanzapine 5 mg tablet 5 mg PO Q6-8H PRN agitation 2 05/11/25 weeks #7 tabs sertraline 50 mg tablet 50 mg PO DAILY 4 weeks #28 tabs 05/11/25 Allergies Allergy/AdvReac Type Severity Reaction Status Date / Time No Known Allergies Allergy Verified 05/09/25 02:10 Review of Systems Review of Systems: Yes Unobtainable due to mental condition (Dementia) Physical Exam ED Exam Exam: GENERAL: Chronically ill-appearing, conversant, no acute distress. SKIN: Normal skin color for ethnicity, warm, dry, no rashes noted. HEENT: Normocephalic, atraumatic, no stridor, posterior oropharynx nonerythematous, EOMI. NECK: Soft, supple, full ROM, midline structures nontender, no step-offs, no deformities, no lymphadenopathy. CHEST: Heart regular rate and rhythm, no murmurs, symmetric chest rise and fall. PULMONARY: Clear to auscultation bilaterally, no labored breathing, no wheezes/rhales/ rhonchi. ABDOMINAL: Soft, nondistended, nontender, positive bowel sounds in all quadrants. : Deferred. MUSCULOSKELETAL: Normal tone, full range of motion, no deformities, no peripheral edema. NEURO: Alert and oriented to person, CN II through XII intact, no focal neurologic deficits. PSYCHIATRIC: Flat affect, fluid speech, appropriate demeanor. Vital Signs: Vital Signs - 24 hr 05/09/25 08:39 05/09/25 12:20 05/09/25 12:26 Temperature 97.5 F 98.2 F Pulse Rate 80 88 84 Respiratory Rate 20 16 16 Blood Pressure 148/70 H 123/68 176/73 H Pulse Oximetry 95 97 96 Oxygen Delivery Method Room Air Nasal Cannula Room Air Oxygen Flow Rate 2 05/09/25 15:29 05/09/25 19:08 05/10/25 02:37 Temperature 97.2 F 98.6 F Pulse Rate 81 86 103 H Respiratory Rate 19 20 22 H Blood Pressure 172/69 H 138/65 Pulse Oximetry 93 95 94 Oxygen Delivery Method Room Air Room Air Room Air Oxygen Flow Rate BMI result Body Mass Index 26.5 Course Reevaluation(s) Reevaluation #1: 7:50 AM 05/09/2025 (Dr. Rakesh Canales): 85-year-old presenting with agitation in the setting of [facility], blood work reveals LATONYA, has had UTI in the past, has required sedation, when I re-evaluated the patient, he is actually cooperative, stated that he is able to give me a urine sample, he is moving upper and lower extremities symmetrically, does not appear restless but able to carry on a conversation has no complaints at this time. 9:14 AM 05/09/2025 (Dr. Rakesh Canales): Urinalysis is negative, I am going to get care team involved and Alee psych, patient has been coming more restless again we will sedate him and at this point as long as he is waiting here for further consults with a obtain imaging as well 3:41 PM 05/09/2025 (Dr. Rakesh Canales): I have received a response from Carissa Vega, who apparently evaluated the patient at 02:00 when patient was sleeping due to medication then indicated that patient has been over medicated , and to not provide patient with anymore medications, I asked her to evaluate the patient as he is becoming agitated again, case discussed with Dr. Ivan for sign out 7:59 AM 05/10/2025 (Dr. Rakesh Canales): Psych provider requesting swallow eval, patient is calm at this time Medications Administered Discontinued Medications Generic Name Dose Route Start Last Admin Trade Name Freq PRN Reason Stop Dose Admin Diazepam 2.5 mg 05/09/25 09:13 05/09/25 09:35 Diazepam 10 Mg/2 Ml Cartridge IVPUSH 05/09/25 09:14 2.5 mg STAT STA Administration Docusate Sodium 100 mg 05/10/25 12:00 05/11/25 15:53 Docusate Sodium 100 Mg Capsule PO Not Given DAILY@1200 UTE Droperidol 1.25 mg 05/09/25 14:30 05/09/25 14:48 Droperidol 5 Mg/2 Ml Vial IM 05/09/25 14:31 1.25 mg ONCE ONE Administration Haloperidol Lactate 2 mg 05/09/25 08:17 05/09/25 08:24 Haloperidol Lactate 5 Mg/Ml Vial IVPUSH 05/09/25 08:18 2 mg ONCE ONE Administration Haloperidol Lactate 2 mg 05/09/25 09:13 05/09/25 09:35 Haloperidol Lactate 5 Mg/Ml Vial IVPUSH 05/09/25 09:14 2 mg ONCE ONE Administration Sodium Chloride 500 mls @ 999 mls/hr 05/09/25 07:30 05/09/25 08:47 Ns IV 05/09/25 08:00 Infused .Q31M UTE Infusion Ketamine HCl 25 mg 05/09/25 10:16 05/09/25 10:19 Ketamine Hcl/Ns 50 Mg/5 Ml Syringe IVPUSH 05/09/25 10:17 25 mg STAT STA Administration Lidocaine HCl 10 ml 05/09/25 08:17 05/09/25 08:25 Lidocaine Hcl 2 % Urojet 10 Ml Jel.Pf.Alex TOPICAL 05/09/25 08:18 10 ml ONCE ONE Administration Lorazepam 1 mg 05/09/25 07:22 05/09/25 07:27 Lorazepam 1 Mg Tablet PO 05/09/25 07:23 1 mg ONCE ONE Administration Losartan Potassium 50 mg 05/10/25 12:00 05/11/25 15:53 Losartan Potassium 50 Mg Tablet PO Not Given DAILY@1200 [facility] Protocol Melatonin 6 mg 05/09/25 02:03 05/09/25 03:07 Melatonin 3 Mg Tablet PO 05/09/25 02:04 6 mg ONCE ONE Administration Melatonin 6 mg 05/10/25 21:00 05/11/25 21:19 Melatonin 3 Mg Tablet PO 6 mg BEDTIME UTE Administration Multivitamins/Vitamin C 1 tab 05/10/25 12:00 05/11/25 15:54 Multivitamin Tablet PO Not Given DAILY@1200 [facility] Olanzapine 5 mg 05/09/25 05:58 05/09/25 05:59 Olanzapine 5 Mg Tablet PO 05/09/25 05:59 5 mg ONCE ONE Administration Olanzapine 5 mg 05/09/25 06:43 05/09/25 06:45 Olanzapine 10 Mg Vial IM 05/09/25 06:44 5 mg STAT STA Administration Olanzapine 5 mg 05/10/25 10:00 05/11/25 21:19 Olanzapine 5 Mg Tablet PO 5 mg BID UTE Administration Omeprazole 20 mg 05/11/25 06:30 05/11/25 06:34 Omeprazole 20 Mg Capsule.Dr PO Not Given DAILY@0630 [facility] Quetiapine Fumarate 50 mg 05/09/25 02:03 05/09/25 03:07 Quetiapine Fumarate 50 Mg Tablet PO 05/09/25 02:04 50 mg ONCE ONE Administration Sertraline HCl 25 mg 05/10/25 12:00 05/10/25 16:23 Sertraline Hcl 25 Mg Tablet PO Not Given DAILY@1200 [facility] Sertraline HCl 50 mg 05/11/25 12:00 05/11/25 15:54 Sertraline Hcl 50 Mg Tablet PO Not Given DAILY@1200 [facility] Medical Decision Making Medical Decision Making [facility] Narrative: Patient presents today with a chief complaint of altered mental status. Differential diagnosis for AMS is incredibly broad and includes infection, intracranial process such as hemorrhage, stroke or mass, electrolyte abnormality, hypercarbia, hypoxia, toxic encephalopathy, among many others. Initially considered just UA for workup given patient's relative calm demeanor in the emergency department however, he quickly became agitated, requiring medication restraint. IM medications were given. He also took some oral pills. Broad-based workup was initiated to further evaluate the etiology of patient's symptoms based on the above exam and history. At this point I do not feel that he needs any neuroimaging. He is ambulatory in the ER, relatively oriented for his level of dementia and has no focal neurologic deficits. 7:38 AM 05/09/2025 (Dr. Sahra Maier, D.O.) awaiting urinalysis. Slight hyponatremia of 130 with a slight LATONYA creatinine 1.72, baseline around 1.3. Patient still has been unable to give a urine sample. I am trying to sedate him to the point were able to get a sample. He had 40 cc of urine in his bladder on his last bladder scan. Since that time, he has received 500 cc of fluid and has been drinking water as well. Differential Diagnosis Differential Diagnoses: The differential diagnosis associated with the presentation includes (as above) Admission/Observation Consideration of admission/observation: Escalation of care including admission/observation considered Lab Data 05/09/25 06:10 05/10/25 10:47 Labs: Lab Results 05/09/25 05/09/25 05/09/25 Range/Units 06:09 06:10 08:41 WBC 8.9 (4.8-10.8) X10*3/uL RBC 4.69 (4.60-5.80) X10*6/uL Hgb 13.0 L (14.0-18.0) g/dl Hct 38.9 L (42.0-52.0) % MCV 82.9 (80.0-98.0) fL MCH 27.7 (27.0-33.0) pg MCHC 33.4 (31.0-36.0) g/dl RDW 14.1 (11.0-16.0) % Plt Count 220 (160-400) X10*3/uL MPV 10.2 (9.4-12.4) fL Immature Gran % (Auto) 0.4 (0.0-0.4) % Neut % (Auto) 65.1 (45-73) % Lymph % (Auto) 19.0 L (20-40) % Hamlin % (Auto) 10.6 (2-11) % Eos % (Auto) 4.2 H (0-4) % Baso % (Auto) 0.7 (0-2) % Lymph # (Auto) 1.7 (1.2-4.9) X10*3/uL Hamlin # (Auto) 0.9 (0.1-1.2) X10*3/uL Eos # (Auto) 0.4 (0.0-0.4) X10*3/uL Baso # (Auto) 0.1 (0.0-0.2) X10*3/uL Abs Immat Gran (auto) 0.04 H (0.00-0.03) X10*3/uL Absolute Neuts (auto) 5.8 (2.0-8.3) x10*3/uL Absolute Nucleated RBC 0.000 (0.0-0.012) X10*3/uL Nucleated RBC % (auto) 0.0 (0.0-0.2) /100WBC Sodium 130 L (135-145) mmol/L Potassium 4.2 (3.3-5.1) mmol/L Chloride 101 (96-108) mmol/L Carbon Dioxide 21 L (22-29) mmol/L Anion Gap 12 (12-20) BUN 31 H (9-16) mg/dL Creatinine 1.72 H (0.5-1.4) mg/dL Estim Creat Clear Calc 32.4 Estimated GFR 38 Random Glucose 102 (60-115) mg/dL Calcium 8.5 D (8.4-10.2) mg/dL Magnesium 2.0 (1.6-2.6) mg/dL Total Bilirubin 0.6 (0.0-1.0) mg/dL AST 19 (5-37) U/L ALT 17 (0-40) U/L Alkaline Phosphatase 90 (39-117) U/L Total Creatine Kinase 238 H (38-174) U/L Total Protein 6.7 (6.5-8.0) g/dL Albumin 4.2 (3.5-5.0) g/dL Urine Color Yellow Urine Appearance Clear Urine pH 5.0 (5.0-9.0) Ur Specific Waite <= 1.005 (1.005-1.025) Urine Protein Negative (Neg-Trace) mg/dL Urine Glucose (UA) Negative (Negative) mg/dL Urine Ketones Negative (Negative) mg/dL Urine Blood Negative (Negative) Urine Nitrite Negative (Negative) Ur Leukocyte Esterase Negative (Negative) Ethyl Alcohol < 10 mg/dL COVID-19 (BECCA) Negative (Negative) COVID-19 Clin Com See Note Influenza Type A (LILIA) Negative (Negative) Influenza Type B (LILIA) Negative (Negative) Influenza A & B Note See Note 05/09/25 05/10/25 Range/Units 15:41 10:47 WBC (4.8-10.8) X10*3/uL RBC (4.60-5.80) X10*6/uL Hgb (14.0-18.0) g/dl Hct (42.0-52.0) % MCV (80.0-98.0) fL MCH (27.0-33.0) pg MCHC (31.0-36.0) g/dl RDW (11.0-16.0) % Plt Count (160-400) X10*3/uL MPV (9.4-12.4) fL Immature Gran % (Auto) (0.0-0.4) % Neut % (Auto) (45-73) % Lymph % (Auto) (20-40) % Hamlin % (Auto) (2-11) % Eos % (Auto) (0-4) % Baso % (Auto) (0-2) % Lymph # (Auto) (1.2-4.9) X10*3/uL Hamlin # (Auto) (0.1-1.2) X10*3/uL Eos # (Auto) (0.0-0.4) X10*3/uL Baso # (Auto) (0.0-0.2) X10*3/uL Abs Immat Gran (auto) (0.00-0.03) X10*3/uL Absolute Neuts (auto) (2.0-8.3) x10*3/uL Absolute Nucleated RBC (0.0-0.012) X10*3/uL Nucleated RBC % (auto) (0.0-0.2) /100WBC Sodium 133 L 135 (135-145) mmol/L Potassium 4.3 4.6 (3.3-5.1) mmol/L Chloride 106 107 (96-108) mmol/L Carbon Dioxide 19 L 20 L (22-29) mmol/L Anion Gap 12 13 (12-20) BUN 23 H 25 H (9-16) mg/dL Creatinine 1.19 1.30 (0.5-1.4) mg/dL Estim Creat Clear Calc 46.8 42.8 Estimated GFR 58 52 Random Glucose 111 111 (60-115) mg/dL Calcium 8.5 8.7 (8.4-10.2) mg/dL Magnesium (1.6-2.6) mg/dL Total Bilirubin 0.8 0.9 (0.0-1.0) mg/dL AST 22 25 (5-37) U/L ALT 17 18 (0-40) U/L Alkaline Phosphatase 53 54 (39-117) U/L Total Creatine Kinase (38-174) U/L Total Protein 6.5 6.6 (6.5-8.0) g/dL Albumin 3.9 4.1 (3.5-5.0) g/dL Urine Color Urine Appearance Urine pH (5.0-9.0) Ur Specific Waite (1.005-1.025) Urine Protein (Neg-Trace) mg/dL Urine Glucose (UA) (Negative) mg/dL Urine Ketones (Negative) mg/dL Urine Blood (Negative) Urine Nitrite (Negative) Ur Leukocyte Esterase (Negative) Ethyl Alcohol mg/dL COVID-19 (BECCA) (Negative) COVID-19 Clin Com Influenza Type A (LILIA) (Negative) Influenza Type B (LILIA) (Negative) Influenza A & B Note Discharge Plan Discharge Clinical Impression: Agitation, Hyponatremia, LATONYA (acute kidney injury), 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 Increase sertraline to 50mg po daily (more therapeutic effect than low dose of 25mg). d/c seroquel. PRN olanzapine 5mg po q6h prn agitation. Monitor EKG, Qtc<500ms, K>4, Mg>2. Ativan 0.5mg po TID prn severe anxiety. [facility] on 05/11/2025. DELIRIUM PREVENTION PROTOCOL: maintain adequate hydration, regular ambulation, promote sleep/wake cycle. As much as possible given setting in the ED. I attempted to send electronic prescriptions disorder on pharmacy but our EMR notified me that this was not possible. Therefore I printed prescriptions to make it easy for your staff however I am unable to print the benzodiazepine which was a PRN for agitation Prescriptions: New olanzapine 5 mg tablet 5 mg PO DAILY 28 Days Qty: 28 0RF sertraline 50 mg tablet 50 mg PO DAILY 28 Days Qty: 28 0RF olanzapine 5 mg tablet 5 mg PO Q6-8H PRN (Reason: agitation) 14 Days Qty: 7 0RF lorazepam [Ativan] 0.5 mg tablet 0.5 mg PO TID PRN (Reason: agitation) Qty: 10 0RF No Action multivitamin Tablet 1 tab PO DAILY@1200 losartan 50 mg tablet 50 mg PO DAILY@1200 acetaminophen 325 mg Tablet 650 mg PO Q4H PRN (Reason: fever/pain) melatonin 3 mg Tablet 6 mg PO BEDTIME docusate sodium 100 mg Capsule 100 mg PO DAILY@1200 sertraline 25 mg Tablet 25 mg PO DAILY@1200 omeprazole 20 mg capsule,delayed release(DR/EC) 20 mg PO DAILY@0630 lactulose 10 gram/15 mL Solution 15 ml PO DAILY PRN (Reason: Constipation) quetiapine 50 mg Tablet 50 mg PO BEDTIME Referrals: [facility] [Outside] Varun Hubbard MD [Primary Care Provider, Detention Facility] Interventions: ED Discharge Assessment Last Done: 05/11/25 21:28 Discharge Date/Time: 05/11/25 21:29 Print Language: Serbian
--- OUTSIDE RECORDS SUMMARY | 2025-05-09 08:07 | XMS_ITS | Encounter Summary ---
Author Organization [facility] Address [address] [place] [phone] Phone Care Team Providers Care Mexican Food Maker Hand Name Role Phone Benjamin Hadley MD Primary Care Provider Abdullahi Leigh NP Primary Care Provide r Encounter Details Date Type Department Care Team (Late st Contact Info) Description 01/12/2020 Procedure Pass [facility], Ct Scan - [address] [address] Social History Tobacco Use Types Packs/Day Years [...] documented as of this encounter Care Teams Mexican Food Maker Hand Relationship Specialty Start Date End Date Benjamin Hadley MD [address] [place] [address] 7 [place] [address] [email or web address] PCP - General Family Medicine 05/09/19 05/22/22 Abdullahi Leigh NP [address] [place] [address] PCP - General Family Medicine 05/23/22 documented as of this encounter Additional Source Comments The information contained in this document represents components of the legal health record. It is not the complete legal health record.[facility]
--- OUTSIDE RECORDS SUMMARY | 2025-05-09 08:08 | XMS_ITS | Encounter Summary ---
Author Organization [facility] Address [facility] [address] [address] Phone Care Team Providers Care Green Meat Packer Name Role Phone Benjamin Hadley MD Primary Care Provider [phone] Abdullahi Leigh NP Primary Care Provide r Encounter Details Date Type Department Care Team (Late st Contact Info) Description 08/30/2020 Procedure Pass [facility], Ct Scan - [address] [address] Social History Tobacco Use Types Packs/Day Years [...] high school, GED, job training, learning the Wolof language, technical skills, or developing parenting skills)? [...] documented as of this encounter Care Teams Green Meat Packer Relationship Specialty Start Date End Date Benjamin Hadley MD [address] [place] [address] 7 [place] [address] PCP - General Family Medicine 05/09/19 05/22/22 Abdullahi Leigh NP [address] [place] [address] PCP - General Family Medicine 05/23/22 documented as of this encounter Additional Source Comments The information contained in this document represents components of the legal health record. It is not the complete legal health record.[facility]
--- OUTSIDE RECORDS SUMMARY | 2025-05-09 08:08 | XMS_ITS | Encounter Summary ---
Author Organization [facility] Address [address] [place] [phone] Phone Care Team Providers Care Electrophysiology Scientist Name Role Phone Benjamin Hadley MD Primary Care Provider [phone] Abdullahi Leigh NP Primary Care Provide r Reason for Referral * MRI/CAT Scan - Closed Specialty Diagnoses / Procedures Referred By Contac t Referred To Contact Radiology Diagnoses Other symptoms and signs involving cognitive functions and awareness Memory impairment Procedures MRI Brain Abdullahi Leigh NP [address] [place] [address] Phone: tel: fax: Referral ID Status Reason Start Date Expiration Date Visits Re quested Visits Authorized [id number] Closed 07/28/2021 07/28/2022 1 1 Encounter Details Date Type Department Care Team (Latest Contact Info) Description 07/28/2021 Transcribe Orders [facility] Department [address] [place] [address] Abdullahi Leigh, ROMMEL [address] [place] [address] Other symptoms and signs involving cognitive functions [...] high school, GED, job training, learning the Bhutanese language, technical skills, or developing parenting skills)? [...] mildly progressed from 2017 Abdullahi Deon Leigh MANAGER TRANSFUSION IMG MR HEAD/NECK Karis l Result documented [...] documented as of this encounter Care Teams Electrophysiology Scientist Relationship Specialty Start Date End Date Benjamin Hadley MD [address] [place] [address], [address] [place] [address] [email or web address] PCP - General Family Medicine 05/09/19 05/22/22 Abdullahi Leigh NP [facility] [place] [address] PCP - General Family Medicine 05/23/22 documented as of this encounter Additional Source Comments The information contained in this document represents components of the legal health record. It is not the complete legal health record.[facility]
--- OUTSIDE RECORDS SUMMARY | 2025-05-09 08:08 | XMS_ITS | Encounter Summary ---
Author Organization [facility] Address [address] [place] [phone] Phone Care Team Providers Care Slag Mixer Name Role Phone Benjamin Hadley MD Primary Care Provider [phone] Abdullahi Leigh NP Primary Care Provide r Encounter Details Date Type Department Care Team (Late st Contact Info) Description 07/28/2021 Procedure Pass [facility], [address] [address] Social History Tobacco Use Types Packs/Day Years [...] high school, GED, job training, learning the Vietnamese language, technical skills, or developing parenting skills)? [...] documented as of this encounter Care Teams Slag Mixer Relationship Specialty Start Date End Date Benjamin Hadley MD [address] [place] [address], [facility] [address] [place] [address] PCP - General Family Medicine 05/09/19 05/22/22 Abdullahi Leigh NP [address] [place] [address] PCP - General Family Medicine 05/23/22 documented as of this encounter Additional Source Comments The information contained in this document represents components of the legal health record. It is not the complete legal health record.[facility]
--- OUTSIDE RECORDS SUMMARY | 2025-05-09 08:08 | XMS_ITS | Encounter Summary ---
Author Organization [facility] Address [address] [address] Phone Care Team Providers Care Plastic Tubing Insulation Supervisor Name Role Phone Benjamin Hadley MD Primary Care Provider Abdullahi Leigh NP Primary Care Provide r Encounter Details Date Type Department Care Team (Late st Contact Info) Description 01/30/2020 Transcribe Orders [address] [place] [address] [place] [address] Rash (Primary Dx) Social History Tobacco Use [...] PM EDT) Lyme AB IgG Negative Negative [facility] Lyme AB IgM Negative Negative [facility] Blood 01/30/2020 1:48 PM EDT 01/30/2020 1:54 PM EDT us Robina Randall MD LAB BLOOD BKR ORDERABLES Fi nal Result [facility] [address] [place] [address] documented in this encounter Visit Diagnoses Diagnosis Rash- Primary Rash and other nonspecific skin eruption documented in this encounter Additional Health Concerns Infection Onset Date Last Indicated Resolved Time CoV-Risk 05/11/2020 05/12/2020 05/25/2020 1:24 AM EST CoV-Risk 05/23/2022 05/23/2022 06/03/2022 1:23 AM EST Influenza 05/23/2022 05/23/2022 05/30/2022 1:24 AM EST documented as of this encounter Care Teams Plastic Tubing Insulation Supervisor Relationship Specialty Start Date End Date Benjamin Hadley MD [address] [place] [address], [address] [place] [address] PCP - General Family Medicine 05/09/19 05/22/22 Abdullahi Leigh NP [address] [place] [address] PCP - General Family Medicine 05/23/22 documented as of this encounter Additional Source Comments The information contained in this document represents components of the legal health record. It is not the complete legal health record.[facility]
--- OUTSIDE RECORDS SUMMARY | 2025-05-09 08:08 | XMS_ITS | Encounter Summary ---
Author Organization [facility] Address [address] [place] [address] Phone Care Team Providers Care Jacquard Twine Polisher Operator Name Role Phone Abdullahi Leigh NP Primary Care Provide r Encounter Details Date Type Department Care Team (Late st Contact Info) Description 10/04/2022 Procedure Pass [facility], Ct Scan - [address] [address] Social History Tobacco Use Types Packs/Day Years [...] 1:33 AM EDT Khushi Jorge RN * [place] Suicide Severity Rating Scale (Screener/Recent Self-Report) Question [...] on filedocumented in this encounter Care Teams Jacquard Twine Polisher Operator Relationship Specialty Start Date End Date Abdullahi Leigh NP [address] [place] [address] PCP - General Family Medicine 05/23/22 documented as of this encounter Additional Source Comments The information contained in this document represents components of the legal health record. It is not the complete legal health record.[facility]
[2025-05-09] MEDS: Lidocaine HCl 2 % Urojet 10 ML JEL.PF.APP TOPICAL (08:25)
[2025-05-09 08:39] VITALS: BP 148/70; PULSE 80; RESP 20; TEMP 36.4; O2SAT 95
[2025-05-09 08:47] LABS: Appearance Urine Clear; Glucose Urine UA Negative (Negative); PH 5.0 (5.0-9.0); Specific Gravity - Urine <= 1.005 (1.005-1.025)
[2025-05-09] MEDS: diazePAM 10 MG/2 ML CARTRIDGE 2.5 MG IVPUSH (09:35)
[2025-05-09] MEDS: Ketamine HCl/NS 50 MG/5 ML SYRINGE 25 MG IVPUSH (10:19)
--- NOTE | 2025-05-09 11:19 | PC.NURSE ---
Assumed care of pt, pt continues to be slightly restless, but redirectable. Sitter remains at bedside.
[2025-05-09 12:20] VITALS: BP 123/68; PULSE 88; RESP 16; TEMP 36.8; O2SAT 97
[2025-05-09 12:26] VITALS: BP 176/73; PULSE 84; RESP 16; O2SAT 96
--- NOTE | 2025-05-09 14:45 | PC.NURSE ---
Pt becoming increasingly agitated, combative, not following directions. Provider made aware, new prn orders received.
--- NOTE | 2025-05-09 15:24 | PM.PSYCN ---
History of Present Illness Date of Service: 05/09/2025 Chief Complaint: AMS combative rule out UTI, dx dementia, calm now Requesting physician: Rakesh Canales Discussed with referring provider: Yes Sources of Information: patient interviewed, chart reviewed and crisis/core team assessment reviewed HPI Narrative: Mr. Rossi is an 85 year-old male with hx of dementia who was sent from [facility] due to increase agitation. Pertinent labs include CBC with normocytic anemia, CMP Na 130, BUN 31, Cr 1.72, creatinine clearance 32.4 CK 238 UA not suggestive of UTI. Bal negative. While in the ED, pt has been agitated requiring number of IM/IV medications: seroquel 50mg po at 3am, Olanzapine 5mg po at 6am, OLanzapine 5mg IM at 6:45am, ativan 1mg po at 7:27am, Haldol 2mg IV at 8:24am, haldol 2mg IV at 9:30, valium 2mg IV at 9:34, ketamine 25mg IV at 10:25, droperidol 1.25mg IM at 14:48. Pt seen at around 2 pm, opened his eyes briefly, he didn't know where he was. He tells this automobile service writer month is July. Conversation was limited as pt was somnolent. Pt apparently after was agitated and received droperidol. Pt was seen again at 4pm, pt was asleep. Collateral information was gathered from his daughter who reports pt has been oriented only to self for several month now. Daughter reports he has not had significant periods of agitation or combative behaviors until recently. She reports he used to be on seroquel but this was discontinued as behaviorally patient was doing well. Diagnostics Vital Signs (24Hr): Vital Signs - 24 hr 05/09/25 02:05 05/09/25 08:39 05/09/25 12:20 Temperature 97.7 F 97.5 F 98.2 F Pulse Rate 83 80 88 Respiratory Rate 18 20 16 Blood Pressure 123/76 148/70 H 123/68 Pulse Oximetry 95 95 97 Oxygen Delivery Method Room Air Room Air Nasal Cannula Oxygen Flow Rate 2 05/09/25 12:26 Temperature Pulse Rate 84 Respiratory Rate 16 Blood Pressure 176/73 H Pulse Oximetry 96 Oxygen Delivery Method Room Air Oxygen Flow Rate BMI result Body Mass Index 26.5 Labs 05/09/25 06:10 05/09/25 06:09 Labs: Laboratory Results - last 48 hr 05/09/25 05/09/25 05/09/25 06:09 06:10 08:41 WBC 8.9 RBC 4.69 Hgb 13.0 L Hct 38.9 L MCV 82.9 MCH 27.7 MCHC 33.4 RDW 14.1 Plt Count 220 MPV 10.2 Immature Gran % (Auto) 0.4 Neut % (Auto) 65.1 Lymph % (Auto) 19.0 L [place] % (Auto) 10.6 Eos % (Auto) 4.2 H Baso % (Auto) 0.7 Lymph # (Auto) 1.7 [place] # (Auto) 0.9 Eos # (Auto) 0.4 Baso # (Auto) 0.1 Abs Immat Gran (auto) 0.04 H Absolute Neuts (auto) 5.8 Absolute Nucleated RBC 0.000 Nucleated RBC % (auto) 0.0 Sodium 130 L Potassium 4.2 Chloride 101 Carbon Dioxide 21 L Anion Gap 12 BUN 31 H Creatinine 1.72 H Estim Creat Clear Calc 32.4 Estimated GFR 38 Random Glucose 102 Calcium 8.5 D Magnesium 2.0 Total Bilirubin 0.6 AST 19 ALT 17 Alkaline Phosphatase 90 Total Creatine Kinase 238 H Total Protein 6.7 Albumin 4.2 Urine Color Yellow Urine Appearance Clear Urine pH 5.0 Ur Specific [place] <= 1.005 Urine Protein Negative Urine Glucose (UA) Negative Urine Ketones Negative Urine Blood Negative Urine Nitrite Negative Ur Leukocyte Esterase Negative Ethyl Alcohol < 10 COVID-19 (BECCA) Negative COVID-19 Clin Com See Note Influenza Type A (LILIA) Negative Influenza Type B (LILIA) Negative Influenza A & B Note See Note Imaging Radiology Impressions: ITS Impressions Head CT 05/09/25 09:45 IMPRESSION: No acute intradural hemorrhage. 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 Global cerebral atrophy. Electronically signed by: Dex Leone MD 05/09/2025 10:02 AM JANEL Mental Status Exam Mental Status Exam Narrative: Limited due to sedation. Oriented only to self. Medications Allergies Allergies Allergy/AdvReac Type Severity Reaction Status Date / Time No Known Allergies Allergy Verified 05/09/25 02:10 Assessment & Plan Assessment & Plan (1) Alzheimer's dementia, late onset, with behavioral disturbance: Status: Acute Code(s): G30.1 - Alzheimer's disease with late onset; F02.818 - Dementia in other diseases classified elsewhere, unspecified severity, with other behavioral disturbance Plan Mr. Rossi is an 85 year-old male with hx of AD who was sent via EMS from [facility] due to increase agitation and combative behaviors. Medical work up has been grossly unremarkable: cbc without leukocytosis, normocytic anemia; CMP with hyponatremia, BUN 31, Cr 1.72, creatinine clearance 32.4 CK mildly elevated 238. UA without signs of UTI. BAL neg. Head CT no acute pathology. Pt seen in between IM/IV/PO medications, assessment is limited. However, pt at baseline is oriented only to self and his dementia is advanced. Question of whether this may be sign of agitation in terminal dementia is very possible in which case, goals of care and hospice should be considered more than admission to [facility]. PLAN 1. The cumulative effects of multiple antipsychotics and benzodiazepines that he received will be more clear in the next few hours, until then recommend avoiding further medications unless pt's safety and other people's safety is seriously compromised. If need to medicate: can use Olanzapine 5mg IM with diazepam 2-5mg IM q6h prn. AVOID giving doses of antipsychotics and benzodiazepines within less than 2hrs. Monitor EKG, Qtc<500ms, K>4, Mg>2. 2. repeated CMP showed improved renal function with IV hydration. 3. will reassess patient on 05/10/25 morning to get a better idea as to what scheduled antipsychotic and dose can be given to manage combative behaviors of dementia. Total time managing care of this patient today ____ minutes.
[2025-05-09 15:29] VITALS: PULSE 81; RESP 19; O2SAT 93
[2025-05-09 16:01] LABS: Alanine Aminotransferase 17 U/L (0-40); Albumin Level 3.9 g/dL (3.5-5.0); Alkaline Phosphatase 53 U/L (39-117); Anion Gap 12 (12-20); Aspartate Amino Transferase 22 U/L (5-37); Blood Urea Nitrogen 23 mg/dL (9-16); Calcium 8.5 mg/dL (8.4-10.2); Carbon Dioxide 19 mmol/L (22-29); Chloride 106 mmol/L (96-108); Creatinine Clr Calc Pharmacy 46.8; Estimated Glomerular Filt Rate 58; Potassium 4.3 mmol/L (3.3-5.1); Sodium 133 mmol/L (135-145); Total Protein 6.5 g/dL (6.5-8.0)
--- NOTE | 2025-05-09 16:23 | PHA.MEDREC ---
Pharmacy Consult ? Medication Reconciliation Pharmacy has completed the medication reconciliation. list from [facility] obtained
--- NOTE | 2025-05-09 18:14 | PC.NURSE ---
Bladder scan performed by tech secondary to pts sm frequent urine output. Bladder scan >940, provider made aware, new orders for catheritization
[2025-05-09 19:08] VITALS: BP 172/69; PULSE 86; RESP 20; TEMP 36.2; O2SAT 95
--- NOTE | 2025-05-09 19:40 | MHC.EDTECH ---
1000mL of clear urine emptied from melendez cath
--- NOTE | 2025-05-10 | ECG_ITS ---
Test Reason : QTC CHECK Blood Pressure : */* mmHG Vent. Rate : 85 BPM Atrial Rate : 85 BPM P-R Int : 272 ms QRS Dur : 76 ms QT Int : 358 ms P-R-T Axes : -12 -10 19 degrees QTcB Int : 426 ms Sinus rhythm with 1st degree A-V block with frequent Premature ventricular complexes Otherwise normal ECG When compared with ECG of 09-May-2025 10:29, ST no longer depressed in Anterior leads Referred By: Carissa Vega Electronically Signed By: ESTEFANIA VERA MD
[2025-05-10 02:37] VITALS: BP 138/65; PULSE 103; RESP 22; TEMP 37; O2SAT 94
--- NOTE | 2025-05-10 02:45 | PC.NURSE ---
Pt found to have episode of diarrhea. Pt cleaned and bed linens changed. Pt alert and oriented to self and place. He is a bit restless but redirected at this time. on tele. VSS. Sitter at bedside.
--- NOTE | 2025-05-10 05:48 | PC.NURSE ---
Pt ambulated with two staff assist to bathroom, Pt had a small loose BM.
--- NOTE | 2025-05-10 07:22 | PC.NURSE ---
Patient ambulated with 2 assist to the bathroom. Patient having loose stools. Patient ambulated back to room. Patient resting. No signs of distress. charge gang weigher at the bedside.
--- NOTE | 2025-05-10 07:51 | PC.NURSE ---
melendez cath remains in place. patient observer at bedside assisting with feeding this morning, states patient had minimal episode of choking while eating sausage. patient in no distress currently. psychiatry met with patient. awaiting orders/dispo.
[2025-05-10 08:36] VITALS: BP 146/66; PULSE 103; RESP 18; TEMP 36.6; O2SAT 94
--- NOTE | 2025-05-10 09:56 | P.CNPS_ITS ---
History of Present Illness Date of Service: 05/10/2025 Chief Complaint: AMS combative rule out UTI, dx dementia, calm now Reason for Consult: f/u agitation Requesting physician: Rakesh Canales Discussed with referring provider: Yes Sources of Information: patient interviewed, chart reviewed and crisis/core team assessment reviewed HPI Narrative: Mr. Rossi is an 85 year-old male with advanced dementia. INterim Hx: pt presents as calmer and less combative. Pt not oriented to place, month year nor situation. However, able to follow a simple questions about how he is doing and whether he is hungry or not. SOme expressive aphasia noted. His attention is fairly intact. Noted difficulty swallowing when eating- requested ED attending to order swallowing eval. Spoke with pt's who is HCP and provided update. Also spoke with Mare from [facility] for further collateral information and update. Review of Systems Review of Systems Yes Unobtainable due to mental condition (Dementia) Diagnostics Vital Signs (24Hr): Vital Signs - 24 hr 05/09/25 12:20 05/09/25 12:26 05/09/25 15:29 Temperature 98.2 F Pulse Rate 88 84 81 Respiratory Rate 16 16 19 Blood Pressure 123/68 176/73 H Pulse Oximetry 97 96 93 Oxygen Delivery Method Nasal Cannula Room Air Room Air Oxygen Flow Rate 2 05/09/25 19:08 05/10/25 02:37 05/10/25 08:36 Temperature 97.2 F 98.6 F 97.9 F Pulse Rate 86 103 H 103 H Respiratory Rate 20 22 H 18 Blood Pressure 172/69 H 138/65 146/66 H Pulse Oximetry 95 94 94 Oxygen Delivery Method Room Air Room Air Room Air Oxygen Flow Rate BMI result Body Mass Index 26.5 Labs 05/09/25 06:10 05/10/25 10:47 Labs: Laboratory Results - last 48 hr 05/09/25 05/09/25 05/09/25 06:09 06:10 08:41 WBC 8.9 RBC 4.69 Hgb 13.0 L Hct 38.9 L MCV 82.9 MCH 27.7 MCHC 33.4 RDW 14.1 Plt Count 220 MPV 10.2 Immature Gran % (Auto) 0.4 Neut % (Auto) 65.1 Lymph % (Auto) 19.0 L [place] % (Auto) 10.6 Eos % (Auto) 4.2 H Baso % (Auto) 0.7 Lymph # (Auto) 1.7 [place] # (Auto) 0.9 Eos # (Auto) 0.4 Baso # (Auto) 0.1 Abs Immat Gran (auto) 0.04 H Absolute Neuts (auto) 5.8 Absolute Nucleated RBC 0.000 Nucleated RBC % (auto) 0.0 Sodium 130 L Potassium 4.2 Chloride 101 Carbon Dioxide 21 L Anion Gap 12 BUN 31 H Creatinine 1.72 H Estim Creat Clear Calc 32.4 Estimated GFR 38 Random Glucose 102 Calcium 8.5 D Magnesium 2.0 Total Bilirubin 0.6 AST 19 ALT 17 Alkaline Phosphatase 90 Total Creatine Kinase 238 H Total Protein 6.7 Albumin 4.2 Urine Color Yellow Urine Appearance Clear Urine pH 5.0 Ur Specific [place] <= 1.005 Urine Protein Negative Urine Glucose (UA) Negative Urine Ketones Negative Urine Blood Negative Urine Nitrite Negative Ur Leukocyte Esterase Negative Ethyl Alcohol < 10 COVID-19 (BECCA) Negative COVID-19 Clin Com See Note Influenza Type A (LILIA) Negative Influenza Type B (LILIA) Negative Influenza A & B Note See Note 05/09/25 15:41 WBC RBC Hgb Hct MCV MCH MCHC RDW Plt Count MPV Immature Gran % (Auto) Neut % (Auto) Lymph % (Auto) [place] % (Auto) Eos % (Auto) Baso % (Auto) Lymph # (Auto) [place] # (Auto) Eos # (Auto) Baso # (Auto) Abs Immat Gran (auto) Absolute Neuts (auto) Absolute Nucleated RBC Nucleated RBC % (auto) Sodium 133 L Potassium 4.3 Chloride 106 Carbon Dioxide 19 L Anion Gap 12 BUN 23 H Creatinine 1.19 Estim Creat Clear Calc 46.8 Estimated GFR 58 Random Glucose 111 Calcium 8.5 Magnesium Total Bilirubin 0.8 AST 22 ALT 17 Alkaline Phosphatase 53 Total Creatine Kinase Total Protein 6.5 Albumin 3.9 Urine Color Urine Appearance Urine pH Ur Specific [place] Urine Protein Urine Glucose (UA) Urine Ketones Urine Blood Urine Nitrite Ur Leukocyte Esterase Ethyl Alcohol COVID-19 (BECCA) COVID-19 Clin Com Influenza Type A (LILIA) Influenza Type B (LILIA) Influenza A & B Note Imaging Radiology Impressions: ITS Impressions Head CT 05/09/25 09:45 IMPRESSION: No acute intradural hemorrhage. 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 Global cerebral atrophy. Electronically signed by: Dex Leone MD 05/09/2025 10:02 AM EST Mental Status Exam Mental Status Exam Narrative: Appearance: wearing hospital gown, sitting comfortable. in NAD behavior: cooperative Psychomotor: no agitation or retaradation noted. mild bilat action tremors. Speech: expressive aphasia Mood: good Affect: congruent No overt signs of psychosis nor paranoid Insight/judgment: impaired x 2. Memory/cog: severe impairments, oriented only to self. Medications Allergies Allergies Allergy/AdvReac Type Severity Reaction Status Date / Time No Known Allergies Allergy Verified 05/09/25 02:10 Assessment & Plan Assessment & Plan (1) Alzheimer's dementia, late onset, with behavioral disturbance: Status: Acute Code(s): G30.1 - Alzheimer's disease with late onset; F02.818 - Dementia in other diseases classified elsewhere, unspecified severity, with other behavioral disturbance Plan Mr. Rossi is an 85 year-old male with hx of AD who was sent via EMS from [facility] due to increase agitation and combative behaviors. Medical work up has been grossly unremarkable: cbc without leukocytosis, normocytic anemia; CMP with hyponatremia, BUN 31, Cr 1.72, creatinine clearance 32.4 CK mildly elevated 238. UA without signs of UTI. BAL neg. Head CT no acute pathology. Pt seen in between IM/IV/PO medications, assessment is limited. However, pt at baseline is oriented only to self and his dementia is advanced. Question of whether this may be sign of agitation in terminal dementia is very possible in which case, goals of care and hospice should be considered more than admission to [facility]. PLAN 05/09/2025 * The cumulative effects of multiple antipsychotics and benzodiazepines that he received will be more clear in the next few hours, until then recommend avoiding further medications unless pt's safety and other people's safety is seriously compromised. If need to medicate: can use Olanzapine 5mg IM with diazepam 2-5mg IM q6h prn. AVOID giving doses of antipsychotics and benzodiazepines within less than 2hrs. Monitor EKG, Qtc<500ms, K>4, Mg>2. * repeated CMP showed improved renal function with IV hydration. 05/10/2025 * pt calmer, not combative. noted dysphagia when eating. requested ED attending to order swallowing eval. * schedule olanzapine 5mg po BID. Increase sertraline to 50mg po daily (more therapeutic effect than low dose of 25mg). d/c seroquel. PRN olanzapine 5mg po q6h prn agitation. Monitor EKG, Qtc<500ms, K>4, Mg>2. Ativan 0.5mg po TID prn severe anxiety. * [facility] 05/[facility]/2025. * DELIRIUM PREVENTION PROTOCOL: maintain adequate hydration, regular ambulation, promote sleep/wake cycle. As much as possible given setting in the ED. Total time managing care of this patient today ____ minutes.
[2025-05-10 11:05] LABS: Alanine Aminotransferase 18 U/L (0-40); Albumin Level 4.1 g/dL (3.5-5.0); Alkaline Phosphatase 54 U/L (39-117); Anion Gap 13 (12-20); Aspartate Amino Transferase 25 U/L (5-37); Blood Urea Nitrogen 25 mg/dL (9-16); Calcium 8.7 mg/dL (8.4-10.2); Carbon Dioxide 20 mmol/L (22-29); Chloride 107 mmol/L (96-108); Creatinine Clr Calc Pharmacy 42.8; Estimated Glomerular Filt Rate 52; Potassium 4.6 mmol/L (3.3-5.1); Sodium 135 mmol/L (135-145); Total Protein 6.6 g/dL (6.5-8.0)
--- NOTE | 2025-05-10 11:36 | PC.NURSE ---
continues to be a two person assist, commode now in room for patient convenience d/t incontinent episode while ambulating to the bathroom. awaiting swallow eval - per paperwork patient usually ambulates independently, takes meds crushed, and eats a regular diet with thin liquids.
--- NOTE | 2025-05-10 13:27 | PC.NURSE ---
continuously pulling on melendez catheter. multiple attempts to redirect patient and educate on the need to not pull on it. continued to pull on the catheter. removed at this time to prevent injury/falls. intermittently agitated with staff. continues to await swallow eval.
--- NOTE | 2025-05-10 15:24 | MHC.CARE ---
Today 05/10/25 patient was re-seen by hospital psychiatry team VICE PRESIDENT OF OPERATIONS Carissa Vega and recommendation [facility].
[2025-05-10 16:27] VITALS: BP 133/46; PULSE 72; RESP 18; TEMP 36.5; O2SAT 96
--- NOTE | 2025-05-10 16:55 | PC.NURSE ---
patient had continued to choke while 1:1 feed by PCT w/ regular diet and thin liquids as per paperwork from snf. NPO diet pending swallow eval ordered, continue to await swallow eval.
--- NOTE | 2025-05-10 19:35 | PC.NURSE ---
this rn assumed care of pt, pt resting in stretcher, no acute distress noted. sitter at bedside
[2025-05-11] VITALS: BP 130/47; PULSE 89; RESP 18; O2SAT 96
[2025-05-11 08:00] VITALS: BP 136/71; PULSE 68; RESP 16; TEMP 36.4; O2SAT 96
--- NOTE | 2025-05-11 12:45 | PC.NURSE ---
Pt pending Speech Consult for swallow eval.
--- NOTE | 2025-05-11 12:48 | PM.PSYCN ---
History of Present Illness Date of Service: 05/11/2025 Chief Complaint: AMS combative rule out UTI, dx dementia, calm now Reason for Consult: f/u Requesting physician: Rakesh Canales Discussed with referring provider: Yes Sources of Information: patient interviewed, chart reviewed and crisis/core team assessment reviewed HPI Narrative: Interim hx: pt slept through the night. He has been much calmer.No need for IM. He had speech swallowing eval: recommendation chopped/advanced (NDD3) and honey thick liquids, medications chrushed in puree. He will need repeat speech eval once back at SNF. Diagnostics Vital Signs (24Hr): Vital Signs - 24 hr 05/10/25 16:27 05/11/25 00:00 05/11/25 08:00 Temperature 97.7 F 97.6 F Pulse Rate 72 89 68 Respiratory Rate 18 18 16 Blood Pressure 133/46 L 130/47 L 136/71 Pulse Oximetry 96 96 96 Oxygen Delivery Method Room Air Room Air BMI result Body Mass Index 26.5 Labs 05/09/25 06:10 05/10/25 10:47 Labs: Laboratory Results - last 48 hr 05/09/25 05/10/25 15:41 10:47 Sodium 133 L 135 Potassium 4.3 4.6 Chloride 106 107 Carbon Dioxide 19 L 20 L Anion Gap 12 13 BUN 23 H 25 H Creatinine 1.19 1.30 Estim Creat Clear Calc 46.8 42.8 Estimated GFR 58 52 Random Glucose 111 111 Calcium 8.5 8.7 Total Bilirubin 0.8 0.9 AST 22 25 ALT 17 18 Alkaline Phosphatase 53 54 Total Protein 6.5 6.6 Albumin 3.9 4.1 Imaging Radiology Impressions: ITS Impressions Head CT 05/09/25 09:45 IMPRESSION: No acute intradural hemorrhage. 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 Global cerebral atrophy. Electronically signed by: Dex Leone MD 05/09/2025 10:[address] [facility] Mental Status Exam Mental Status Exam Narrative: Appearance: wearing hospital gown, sitting comfortable. in NAD behavior: cooperative Psychomotor: no agitation or retaradation noted. mild bilat action tremors. Speech: expressive aphasia Mood: good Affect: congruent No overt signs of psychosis nor paranoid Insight/judgment: impaired x 2. Memory/cog: severe impairments, oriented only to self. Medications Medications Current Medications Acetaminophen (Acetaminophen 325 Mg Tablet) 650 mg PO Q4H PRN PRN Reason: fever/pain Docusate Sodium (Docusate Sodium 100 Mg Capsule) 100 mg PO DAILY@1200 [facility] Last Admin: 05/10/25 13:28 Dose: Not Given Lactulose (Lactulose 20 Gm/30 Ml Solution) 10 gm PO DAILY PRN PRN Reason: Constipation Lorazepam (Lorazepam 0.5 Mg Tablet) 0.5 mg PO TID PRN PRN Reason: anxious mood Losartan Potassium (Losartan Potassium 50 Mg Tablet) 50 mg PO DAILY@1200 [facility]; Protocol Last Admin: 05/10/25 16:24 Dose: Not Given Melatonin (Melatonin 3 Mg Tablet) 6 mg PO BEDTIME [facility] Last Admin: 05/10/25 21:29 Dose: Not Given Multivitamins/Vitamin C (Multivitamin Tablet) 1 tab PO DAILY@1200 [facility] Last Admin: 05/10/25 16:23 Dose: Not Given Olanzapine (Olanzapine 5 Mg Tablet) 5 mg PO BID [facility] Last Admin: 05/11/25 10:03 Dose: Not Given Olanzapine (Olanzapine 5 Mg Tablet) 5 mg PO Q6H PRN PRN Reason: agitation Omeprazole (Omeprazole 20 Mg Capsule.Dr) 20 mg PO DAILY@0630 [facility] Last Admin: 05/11/25 06:34 Dose: Not Given Sertraline HCl (Sertraline Hcl 50 Mg Tablet) 50 mg PO DAILY@1200 [facility] Allergies Allergies Allergy/AdvReac Type Severity Reaction Status Date / Time No Known Allergies Allergy Verified 05/09/25 02:10 Assessment & Plan Assessment & Plan (1) Alzheimer's dementia, late onset, with behavioral disturbance: Status: Acute Code(s): G30.1 - Alzheimer's disease with late onset; F02.818 - Dementia in other diseases classified elsewhere, unspecified severity, with other behavioral disturbance Plan Mr. Rossi is an 85 year-old male with hx of AD who was sent via EMS from [facility] due to increase agitation and combative behaviors. Medical work up has been grossly unremarkable: cbc without leukocytosis, normocytic anemia; CMP with hyponatremia, BUN 31, Cr 1.72, creatinine clearance 32.4 CK mildly elevated 238. UA without signs of UTI. BAL neg. Head CT no acute pathology. Pt seen in between IM/IV/PO medications, assessment is limited. However, pt at baseline is oriented only to self and his dementia is advanced. Question of whether this may be sign of agitation in terminal dementia is very possible in which case, goals of care and hospice should be considered more than admission to [facility]. PLAN 05/09/2025 The cumulative effects of multiple antipsychotics and benzodiazepines that he received will be more clear in the next few hours, until then recommend avoiding further medications unless pt's safety and other people's safety is seriously compromised. If need to medicate: can use Olanzapine 5mg IM with diazepam 2-5mg IM q6h prn. AVOID giving doses of antipsychotics and benzodiazepines within less than 2hrs. Monitor EKG, Qtc<500ms, K>4, Mg>2. repeated CMP showed improved renal function with IV hydration. 05/10/2025 pt calmer, not combative. noted dysphagia when eating. requested ED attending to order swallowing eval. schedule olanzapine 5mg po BID. Increase sertraline to 50mg po daily (more therapeutic effect than low dose of 25mg). d/c seroquel. PRN olanzapine 5mg po q6h prn agitation. Monitor EKG, Qtc<500ms, K>4, Mg>2. Ativan 0.5mg po TID prn severe anxiety. [facility] 05/11/2025. DELIRIUM PREVENTION PROTOCOL: maintain adequate hydration, regular ambulation, promote sleep/wake cycle. As much as possible given setting in the ED. 05/11/2025 pt stable to return to [facility]. continue olanzapine 5mg po BID. recommendation chopped/advanced (NDD3) and honey thick liquids, medications chrushed in puree. He will need repeat speech eval once back at SNF. Total time managing care of this patient today ____ minutes.
[2025-05-11 16:42] VITALS: BP 129/60; PULSE 82; RESP 14; TEMP 36.7; O2SAT 95
--- NOTE | 2025-05-11 18:06 | MHC.SL.SWA ---
Speech Pathologist Impression: Risk of Aspiration Oralpharyngeal Dysphagia Risk of Aspiration Due to: Neurological Condition Reduced Cognition Dysphasia Diet Status: Start on NDD3/HTL Liquid Consistency and Strategies for Safe Swallow: Liquid Intake Recommendation: Honey Thick Liquid Intake Strategies: Small Sips No Straws Double Swallow Solid Food Consistency: Dietary Recommendations: Chopped/Advanced (NDD3) Additional Modifications to Solid Foods: Patient presents with mild oropharyngeal dysphagia, in the setting of dementia and increased aggressive behavior/alteration of mentation. Patient has top and bottom dentures, which were placed for PO intake. Nursing staff report choking episodes on regualr texture foods, such as sausages. When seen for clinical swallow eval w/ SOFTWARE SUPPORT REPRESENTATIVE, observed coughing after trials of thin liquid, consistent throat clearing after each sip of nectar thick liquid, slow and disorganized chewing pattern. Per LTC facility ([facility]), patient is on a REGULAR texture diet with THIN liquids, does not need any assistance at meals, and is pretty independent at baseline. Recommend downgrade from baseline, START diet of CHOPPED/ADVANCED (NDD3) and HONEY THICK liquids, pills CRUSHED in PUREE. Patient will need 1:1 assistance at meal time with cues for aspiration precautions/strategies for clearance: upright 90 degree position during PO intake, small bites, check oral cavity for residue, alternate with sips of liquid to promote clearance, cue for dry swallow as needed, avoid the use of straws. Oral Medication Intake: Crushed with Puree Please contact the pharmacy regarding appropriate crushable or liquid drug formulations that are available whenever modified delivery is recommended. Compensatory Strategies and Precautions to be Taken for Safe Swallow: Sitting Upright (90 deg) Double Swallow No Straw Small Bites and Sips Alternate Liquids/Solids Rate of Ingestion Change Oral Check Supervision While Eating and Drinking for Safe Swallow: Total Assistance (1:1) Swallowing Recommended Treatments: Compens. Strategy Educat. Recommendation for Speech: Inpatient Speech Therapy Speech Therapy through Rehab Facility Comment: SOFTWARE SUPPORT REPRESENTATIVE will continue to follow daily during inpatient stay, patient will need repeat-swallow eval once d/c back to LTC (he is not at reported baseline-coughing on liquids/choking reported on regular solids such as sausages) Frequency/Duration: M-F while inpatient Date Range for Service Req: Timeline to reassess: PRN Microwave Supervisor Clinican/Clinical Fellow: No Supervisory Statement: I have reviewed and agree with the student/clinical fellow's documentation: N/A Speech Language Pathologist: Belen Bai M.A., CCC-SOFTWARE SUPPORT REPRESENTATIVE
--- NOTE | 2025-05-11 19:50 | PC.NURSE ---
gave nurse to nurse report,, spoke with Rere FRANCOIS who works on pts unit at [facility].
[2025-05-11 19:51] VITALS: BP 142/84; PULSE 108; RESP 20; TEMP 37.1; O2SAT 92
[2025-05-11 21:28] VITALS: BP 142/84; PULSE 108; RESP 20; TEMP 37.1; O2SAT 92
== END 2025-05-11 21:29 ==
PROVIDERS: Emergency Medicine; Social Worker; Emergency Provider Emergency Medicine; PCP Internal Medicine Interventional Cardiology
DX: R45.1 Restlessness and agitation (principal); E87.1 Hypo-osmolality and hyponatremia; G30.1 Alzheimer's disease with late onset; F02.818 Dementia in other diseases classified elsewhere, unspecified severity, with other behavioral disturbance; Z03.818 Encounter for observation for suspected exposure to other biological agents ruled out; Z79.899 Other long term (current) drug therapy
CPT/HCPCS: 36415; 70450; 80053; 80307; 81003; 82550; 83735; 85025; 87502; 87635; 93005; 96361; 96372; 96374; 96375; 96376; 99285; J1630; J1790; J2359; J3360; S9485

== ENCOUNTER → 2025-05-09 07:42 | Outpatient (BNV) | payer BC, MEDICARE, SELFPAY | PROVIDERS: Emergency Provider Emergency Medicine; Visit Provider Social Worker | DX: G30.1 Alzheimer's disease with late onset (principal); F02.818 Dementia in other diseases classified elsewhere, unspecified severity, with other behavioral disturbance | CPT/HCPCS: 99284 ==

== ENCOUNTER → 2025-05-09 09:13 | Outpatient (BNV) | payer BC, MEDICARE, SELFPAY | PROVIDERS: Emergency Provider Emergency Medicine; Visit Provider Radiology Diagnostic Radiology | DX: G31.9 Degenerative disease of nervous system, unspecified (principal); R90.82 White matter disease, unspecified | CPT/HCPCS: 70450 ==

== ENCOUNTER → 2025-05-09 10:29 | Outpatient (BNV) | payer BC, MEDICARE, SELFPAY | PROVIDERS: Emergency Provider Emergency Medicine; Visit Provider Internal Medicine Cardiovascular Disease | DX: I44.0 Atrioventricular block, first degree (principal); I49.1 Atrial premature depolarization | CPT/HCPCS: 93010 ==

== ENCOUNTER → 2025-05-10 10:34 | Outpatient (BNV) | payer BC, MEDICARE, SELFPAY | PROVIDERS: Emergency Provider Emergency Medicine; PCP Internal Medicine Interventional Cardiology; Visit Provider Internal Medicine Cardiovascular Disease | DX: I44.0 Atrioventricular block, first degree (principal); I49.3 Ventricular premature depolarization | CPT/HCPCS: 93010 ==